=== PATIENT | male | born 1955 | race Caucasian/White ===

== ENCOUNTER 2019-04-02 05:56 | Inpatient (IN) | payer OTHER ==
--- OUTSIDE RECORDS SUMMARY | 2019-04-02 05:59 | XMS REPORT | Clinical Summary ---
:1955 [address] [facility] Address [address] [place] [address] Care Team Providers Name Role Phone Alexis Primary Care Provider Allergies No Known Allergies Medications Medication Sig Dispensed Refills Start Date End Date Status aspirin 81 MG EC Take 81 mg by mouth 0 Active tablet daily. gabapentin Take 300 mg by mouth 0 Active (NEURONTIN) 300 MG 3 (three) times capsule daily. levothyroxine Take 100 mcg by 0 Active (SYNTHROID, mouth Every morning LEVOTHROID) 100 MCG on an empty stomach. tablet simvastatin (ZOCOR) Take 40 mg by mouth 0 Active 40 MG tablet nightly. ticagrelor Take by mouth 2 0 Active (BRILINTA) 90 mg Tab (two) times daily. tablet albuterol HFA Inhale by mouth via 0 Active (VENTOLIN HFA) 90 inhaler every 6 mcg/actuation (six) hours as inhaler needed for Wheezing . budesonide-formotero Inhale 2 puffs by 0 Active l (SYMBICORT) mouth via inhaler 2 160-4.5 (two) times daily. mcg/actuation inhaler brinzolamide (AZOPT) Place 1 drop into 0 Active 1 % ophthalmic both eyes 3 (three) suspension times daily. latanoprost 1 drop nightly. 0 Active (XALATAN) 0.005 % ophthalmic solution prednisoLONE acetate 1 drop 4 (four) 0 Active (PRED FORTE) 1 % times daily. ophthalmic suspension tiotropium (SPIRIVA) Inhale 18 mcg by 0 Active 18 mcg inhalation mouth via inhaler capsule daily. traMADol (ULTRAM) 50 Take 50 mg by mouth 0 Active mg tablet every 6 (six) hours as needed for Pain. amoxicillin-clavulan Take 1 tablet by 0 Active ate (AUGMENTIN) mouth 2 (two) times 875-125 mg per daily. tablet fluticasone 1 spray by Nasal 0 Active (FLONASE) 50 route 2 (two) times mcg/actuation nasal daily. spray montelukast Take 10 mg by mouth 0 Active (SINGULAIR) 10 mg nightly. tablet pantoprazole Take 40 mg by mouth 0 Active (PROTONIX) 40 MG daily. tablet predniSONE Take 5 mg by mouth 0 Active (DELTASONE) 5 MG daily. tablet insulin detemir Inject 20 Units 10 mL 0 01/31/2017 Active (LEVEMIR) 100 subcutaneously unit/mL injection daily. Active Problems Problem Noted Date Carotid stenosis 02/01/2017 History of coronary artery disease 02/01/2017 PVD (peripheral vascular disease) 02/01/2017 COPD (chronic obstructive pulmonary disease) 02/01/2017 DM (diabetes mellitus) 02/01/2017 Hypothyroidism 02/01/2017 History of below knee amputation, right: in 201402/01/2017 History of above knee amputation, left: in 200502/01/2017 Dizziness 01/31/2017 TIA (transient ischemic attack) 01/30/2017 Family History Medical History Relation Name Comments Heart disease Father Relation Name Status Comments Father Mother Social History Tobacco Use Types Packs/Day Years Used Date Former Smoker 1 46 Quit: 09/01/2011 Alcohol Use Drinks/Week oz/Week Comments No Sex Assigned at Date Recorded Not on file Job Start Date Occupation Industry Not on file Not on file Not on file Travel History Travel Start Travel End No recent travel history available. Last Filed Vital Signs Not on file Plan of Treatment Not on file Results Not on fileafter 04/01/2018 Insurance Payer Benefit Plan / Group Subscriber ID Type Phone Address MEDICARE MEDICARE A B xxxxxxxxxx Medicare Advance Directives For more information, please contact:[place] [address] [place], [place] [phone] Code Status Date Activated Date Inactivated Comments Partial Code 01/30/2017 10:30 PM 02/01/2017 6:08 PM This code status was determined by: Patient Drug Protocol After Arrest Occurs? Yes Mechanical Ventilation with Intubation? No Bag/Mask? No Internal/External Pacemaker? No Transfer to Critical Care? No Chest Compressions? No Defibrillation/Cardioversion? No
--- OUTSIDE RECORDS SUMMARY | 2019-04-02 05:59 | XMS REPORT ---
:1955 Author [facility] Address [address] [place] [address] Care Team Providers Name Role Phone LAMONT JACOB Unavailable Unavailable Problems This patient has no known problems. Allergies, Adverse Reactions, Alerts This patient has no known allergies or adverse reactions. Medications This patient has no known medications. Results Test Description Test Time Test Comments Text Results Atomic Results Result Comments POCT-GLUCOSE METER 2017-02-01 11:26:00 Test Item Value Reference Range Comments POC-GLUCOSE METER (BEAKER) (test 268 mg/dL 70-110 TESTED AT [facility] [address] [facility] uxsa=[id number]) [facility] [address] POCT-GLUCOSE [id number] 07:49:00 Test Item Value Reference Range Comments POC-GLUCOSE METER (BEAKER) 219 mg/dL 70-110 TESTED AT [facility] [address] [facility] cihv[facility] [address] BASIC METABOLIC [id number] 07:26:00 Test Item Value Reference Range Comments SODIUM (BEAKER) (test 134 meq/L 136-145 fsou=313) POTASSIUM (BEAKER) (test 3.6 meq/L 3.5-5.1 plgq=019) CHLORIDE (BEAKER) (test 103 meq/L 98-107 vkmx=869) CO2 (BEAKER) (test 23 meq/L 22-29 eboj=963) BLOOD UREA NITROGEN 21 mg/dL 7-21 (BEAKER) (test fgob=861) CREATININE (BEAKER) (test 1.23 mg/dL 0.57-1.25 codq=107) GLUCOSE RANDOM (BEAKER) 212 mg/dL 70-105 (test sstc=526) CALCIUM (BEAKER) (test 9.0 mg/dL 8.4-10.2 zbid=732) EGFR (BEAKER) (test 60 mL/min/1.73 sq m ESTIMATED GFR IS NOT lrny=8561) ACCURATE CREATININE CLEARANCE IN PREDICTING GLOMERULAR FILTRATION RATE. ESTIMATED GFR IS NOT APPLICABLE FOR DIALYSIS PATIENTS. CBC W/PLT COUNT & AUTO [id number] 06:02:00 Test Item Value Reference Range Comments WHITE BLOOD CELL COUNT (BEAKER) (test kwfl=252) 6.5 K/ L 4.0-10.0 RED BLOOD CELL COUNT (BEAKER) (test xvrr=282) 3.90 M/ L 4.20-5.80 HEMOGLOBIN (BEAKER) (test rucp=799) 12.0 GM/DL 13.0-16.8 HEMATOCRIT (BEAKER) (test rgri=851) 36.0 % 40.0-50.0 MEAN CORPUSCULAR VOLUME (BEAKER) (test gakx=552) 92.2 fL 82.0-98.0 MEAN CORPUSCULAR HEMOGLOBIN (BEAKER) (test 30.8 pg 27.0-33.0 mqrr=459) MEAN CORPUSCULAR HEMOGLOBIN CONC (BEAKER) (test 33.4 GM/DL 32.0-36.0 nzwm=842) RED CELL DISTRIBUTION WIDTH (BEAKER) (test 12.2 % 10.3-14.2 whle=663) PLATELET COUNT (BEAKER) (test egid=425) 187 K/CU MM 150-430 MEAN PLATELET VOLUME (BEAKER) (test uiyb=584) 8.0 fL 6.5-10.5 NUCLEATED RED BLOOD CELLS (BEAKER) (test 0 /100 WBC 0-0 ejeq=283) NEUTROPHILS RELATIVE PERCENT (BEAKER) (test 58 % btxl=049) LYMPHOCYTES RELATIVE PERCENT (BEAKER) (test 23 % yekj=747) MONOCYTES RELATIVE PERCENT (BEAKER) (test 11 % uaab=311) EOSINOPHILS RELATIVE PERCENT (BEAKER) (test 7 % feqy=718) BASOPHILS RELATIVE PERCENT (BEAKER) (test 1 % olfp=713) NEUTROPHILS ABSOLUTE COUNT (BEAKER) (test 3.78 K/ L 1.80-8.00 dhyu=650) LYMPHOCYTES ABSOLUTE COUNT (BEAKER) (test 1.52 K/ L 1.48-4.50 rdhy=766) MONOCYTES ABSOLUTE COUNT (BEAKER) (test 0.73 K/ L 0.00-1.30 pwat=001) EOSINOPHILS ABSOLUTE COUNT (BEAKER) (test 0.48 K/ L 0.00-0.50 axdr=000) BASOPHILS ABSOLUTE COUNT (BEAKER) (test 0.04 K/ L 0.00-0.20 gtxh=230) 0.00POCT-GLUCOSE [id number] 23:23:00 Test Item Value Reference Range Comments POC-GLUCOSE METER (BEAKER) 339 mg/dL 70-110 TESTED AT [address] (test lbct=4791) [facility] [address] POCT-GLUCOSE [id number] 19:55:00 Test Item Value Reference Range Comments POC-GLUCOSE METER (BEAKER) 366 mg/dL 70-110 Will Repeat Test/TESTED AT (test wsct=0483) [address] [address] POCT-GLUCOSE [id number] 18:14:00 Test Item Value Reference Range Comments POC-GLUCOSE METER (BEAKER) 410 mg/dL 70-110 TESTED AT [address] (test gjxs=2292) [facility] [address] POCT-GLUCOSE [id number] 16:43:00 Test Item Value Reference Range Comments POC-GLUCOSE METER (BEAKER) 403 mg/dL 70-110 Notified NEGRA FONSECA/TESTED AT [facility] (test rugd=7825) [address] [place] [address] CBC W/PLT COUNT & AUTO [id number] 11:17:00 Test Item Value Reference Range Comments WHITE BLOOD CELL COUNT (BEAKER) (test nigk=056) 8.5 K/ L 4.0-10.0 RED BLOOD CELL COUNT (BEAKER) (test jomx=257) 4.34 M/ L 4.20-5.80 HEMOGLOBIN (BEAKER) (test lmnt=722) 13.1 GM/DL 13.0-16.8 HEMATOCRIT (BEAKER) (test tvdo=063) 40.4 % 40.0-50.0 MEAN CORPUSCULAR VOLUME (BEAKER) (test nknm=279) 93.1 fL 82.0-98.0 MEAN CORPUSCULAR HEMOGLOBIN (BEAKER) (test 30.1 pg 27.0-33.0 fnek=615) MEAN CORPUSCULAR HEMOGLOBIN CONC (BEAKER) (test 32.3 GM/DL 32.0-36.0 euot=402) RED CELL DISTRIBUTION WIDTH (BEAKER) (test 13.4 % 10.3-14.2 wudz=391) PLATELET COUNT (BEAKER) (test hhef=011) 190 K/CU MM 150-430 MEAN PLATELET VOLUME (BEAKER) (test tyih=648) 8.3 fL 6.5-10.5 NUCLEATED RED BLOOD CELLS (BEAKER) (test 0 /100 WBC 0-0 dujb=660) NEUTROPHILS RELATIVE PERCENT (BEAKER) (test 68 % qwfg=334) LYMPHOCYTES RELATIVE PERCENT (BEAKER) (test 18 % zkqh=623) MONOCYTES RELATIVE PERCENT (BEAKER) (test 7 % arku=310) EOSINOPHILS RELATIVE PERCENT (BEAKER) (test 5 % xsef=484) BASOPHILS RELATIVE PERCENT (BEAKER) (test 1 % qvkb=616) NEUTROPHILS ABSOLUTE COUNT (BEAKER) (test 5.84 K/ L 1.80-8.00 yblc=941) LYMPHOCYTES ABSOLUTE COUNT (BEAKER) (test 1.57 K/ L 1.48-4.50 nbzn=758) MONOCYTES ABSOLUTE COUNT (BEAKER) (test 0.62 K/ L 0.00-1.30 pujt=721) EOSINOPHILS ABSOLUTE COUNT (BEAKER) (test 0.44 K/ L 0.00-0.50 dwzg=191) BASOPHILS ABSOLUTE COUNT (BEAKER) (test 0.06 K/ L 0.00-0.20 msic=168) 0.00POCT-GLUCOSE [id number] 08:34:00 Test Item Value Reference Range Comments POC-GLUCOSE METER (BEAKER) 293 mg/dL 70-110 TESTED AT [facility] [address] [facility] (test lngg=4360) [facility] [address] CBC W/PLT COUNT & AUTO [id number] 07:38:00 Test Item Value Reference Range Comments WHITE BLOOD CELL COUNT (BEAKER) K/ L 4.0-10.0 clotThis is a corrected (test jdkt=432) result. Previous result was 0.0 K/ L on 01/31/2017 at 0733 CDT RED BLOOD CELL COUNT (BEAKER) M/ L 4.20-5.80 clotThis is a corrected (test ldqb=474) result. Previous result was 2.30 M/ L on 01/31/2017 at 0733 CDT HEMOGLOBIN (BEAKER) (test GM/DL 13.0-16.8 clotThis is a corrected eakd=986) result. Previous result was 9.8 GM/DL on 01/31/[address] [place], [place] [address] HEMATOCRIT (BEAKER) (test % 40.0-50.0 clotThis is a corrected evfw=810) result. Previous result was 21.4 % on 01/31/[address] [place], [place] [address] MEAN CORPUSCULAR VOLUME fL 82.0-98.0 clotThis is a corrected (BEAKER) (test sysi=153) result. Previous result was 92.8 fL on 01/31/[address] [place], [place] [address] MEAN CORPUSCULAR HEMOGLOBIN pg 27.0-33.0 clotThis is a corrected (BEAKER) (test tcpn=707) result. Previous result was 42.5 pg on 01/31/[address] [place], [place] [address] MEAN CORPUSCULAR HEMOGLOBIN GM/DL 32.0-36.0 clotThis is a corrected CONC (BEAKER) (test mosv=731) result. Previous result was 45.8 GM/DL on 01/31/[address] [place], [place] [address] RED CELL DISTRIBUTION WIDTH % 10.3-14.2 clotThis is a corrected (BEAKER) (test imyo=952) result. Previous result was 12.1 % on 01/31/[address] [place], [place] [address] PLATELET COUNT (BEAKER) (test K/CU MM 150-430 clotThis is a corrected ajme=650) result. Previous result was 168 K/CU MM on 01/31/[address] [place], [place] [address] MEAN PLATELET VOLUME (BEAKER) fL 6.5-10.5 clotThis is a corrected (test lakx=432) result. Previous result was 8.1 fL on 01/31/[address] [place], [place] [address] NUCLEATED RED BLOOD CELLS /100 WBC 0-0 This is a corrected result. (BEAKER) (test dbqr=332) Previous result was 0 /100 WBC on 01/31/[address] [place], [place] [address]T 0.000.850.000.000.000.000.000.00BASIC METABOLIC [id number] 06:27:00 Test Item Value Reference Range Comments SODIUM (BEAKER) (test 135 meq/L 136-145 imfv=051) POTASSIUM (BEAKER) (test 4.6 meq/L 3.5-5.1 Specimen slightly gtue=459) hemolyzed CHLORIDE (BEAKER) (test 106 meq/L 98-107 bkbc=655) CO2 (BEAKER) (test 17 meq/L 22-29 zkam=194) BLOOD UREA NITROGEN 20 mg/dL 7-21 (BEAKER) (test fexx=532) CREATININE (BEAKER) (test 0.94 mg/dL 0.57-1.25 Specimen slightly rvxc=482) hemolyzed GLUCOSE RANDOM (BEAKER) 237 mg/dL 70-105 (test fkou=582) CALCIUM (BEAKER) (test 9.1 mg/dL 8.4-10.2 gnrj=437) EGFR (BEAKER) (test 82 mL/min/1.73 sq m ESTIMATED GFR IS NOT hcge=1053) ACCURATE CREATININE CLEARANCE IN PREDICTING GLOMERULAR FILTRATION RATE. ESTIMATED GFR IS NOT APPLICABLE FOR DIALYSIS PATIENTS. POCT-GLUCOSE [id number] 21:00:00 Test Item Value Reference Range Comments POC-GLUCOSE METER (BEAKER) 203 mg/dL 70-110 TESTED AT [facility] [address] (test czei=6791) [facility] [address]
[2019-04-02] MEDS ORDERED: NA CHLORIDE 0.9% 1,000 ML ONE ×2 (06:52→07:56)
[2019-04-02] MEDS ORDERED: ONDANSETRON 4 MG/2 ML VIAL ONE ×2 (06:52→09:06)
[2019-04-02 07:06] LABS: Absolute Lymphocytes (CBC) 1.4 K/uL (0.7-4.9); Hematocrit 43.4 % (39.6-49.0); Lymphocytes % 15.1 % (15.3-44.8); MPV 9.9 fL (7.6-11.3); RBC Red Blood Cell Count 4.72 M/uL (4.33-5.43)
[2019-04-02] MEDS ORDERED: PROMETHAZINE 25 MG/ML VIAL ONE (07:17)
[2019-04-02 07:29] LABS: ALT/SGPT 24 U/L (12-78); AST/SGOT 28 U/L (15-37); Albumin 3.5 g/dL (3.4-5.0); Alkaline Phosphatase 104 U/L (45-117); BUN Blood Urea Nitrogen 34 mg/dL (7-18); Bicarbonate 15 mmol/L (21-32); Bilirubin Direct 0.5 mg/dL (0-0.2); Bilirubin Total 1.5 mg/dL (0.2-1.0); Lipase 20 U/L (73-393); Potassium 4.8 mmol/L (3.5-5.1); Protein, Total 8.3 g/dL (6.4-8.2); Sodium Level 135 mmol/L (136-145)
[2019-04-02 07:53] LABS: Glucose Level 419 mg/dL (74-106)
[2019-04-02 08:28] LABS: Arterial Blood Carboxyhemoglob 1.1 % (0-1.5); Blood Gas Oxyhemoglobin 73.2 % (94-97); Blood O2 Saturation 74.8 % (92-98.5)
--- NOTE | 2019-04-02 08:35 | ER ---
Nurse's Notes [facility] Name: Edson Spence Age: 63 yrs Sex: Male : 1955 Arrival Date: 04/02/2019 Time: 06:00 Bed 6 Private MD: Diagnosis: Diabetes mellitus due to underlying condition with ketoacidosis without coma Presentation: 04/02 05:55 Presenting complaint: Patient states: that he has been feeling sick x 4 days. Then for fc the last 2 days he has been vomiting. Also complains of pain all over. Concerned that it has something to do with his DM, unable to check blood sugars at home. Transition of care: patient was not received from another setting of care. Onset of symptoms was March 30, 2019. Risk Assessment: Do you want to hurt yourself or someone else? Patient reports no desire to harm self or others. Initial Sepsis Screen: Does the patient meet any 2 criteria? HR > 90 bpm. Yes Does the patient have a suspected source of infection? No. Patient's initial sepsis screen is negative. Care prior to arrival: Glucose check: 343. 05:55 Method Of Arrival: EMS: [facility] 05:55 Acuity: CHRISTOPHER 3 fc Historical: - Allergies: 06:06 NKA; fc - Home Meds: 06:11 aspirin 81 mg Oral TbEC 1 tab once daily [Active]; BRILINTA 90 mg oral tab 1 tab 2 fc times per day [Active]; levothyroxine 100 mcg tab 1 tab once daily [Active]; metoprolol tartrate 25 mg Oral tab 1 tab 2 times per day [Active]; simvastatin 40 mg Oral tab 1 tab nightly [Active]; Insulin [Active]; - PMHx: 06:06 COPD; Diabetes - IDDM; Hypertension; Hypothyroidism; Myocardial infarction; High fc Cholesterol; - PSHx: 06:06 Heart stents; Left AKA; Right BKA; fc - Immunization history:: Last tetanus immunization: up to date. - Social history:: Smoking status: Patient/guardian denies using tobacco, the patient reports quitting approximately 3 years ago, Patient/guardian denies using alcohol, street drugs. - Ebola Screening: : Patient negative for fever greater than or equal to 101.5 degrees Fahrenheit, and additional compatible Ebola Virus Disease symptoms Patient denies exposure to infectious person Patient denies travel to an Ebola-affected area in the 21 days before illness onset. Screenin:04 Abuse screen: Denies threats or abuse. Nutritional screening: No deficits noted. fc Tuberculosis screening: No symptoms or risk factors identified. 06:11 Fall Risk Secondary diagnosis (15 points) impaired mobility, Gait- Impaired (20 pts.). jd3 Mental Status- Oriented to own ability (0 pts). Total Martinez Fall Scale indicates Low Risk Score (25-44 pts). Fall prevention measures have been instituted. Side Rails Up X 2 Placed close to Nursing Station Frequent Obs/Assesments occuring. Assessment: 06:07 General: Appears in no apparent distress. uncomfortable, Behavior is calm, cooperative, jd3 appropriate for age. Pain: Complains of pain in generalized Quality of pain is described as aching. Neuro: Level of Consciousness is awake, alert, obeys commands, Oriented to person, place, time, situation. Cardiovascular: Capillary refill < 3 seconds Patient's skin is warm and dry. Respiratory: Airway is patent Respiratory effort is even, unlabored, Respiratory pattern is regular, symmetrical, Denies cough, shortness of breath. GI: Abdomen is flat, non-distended, Abd is soft and non tender X 4 quads. Reports nausea, vomiting. : No signs and/or symptoms were reported regarding the genitourinary system. EENT: No signs and/or symptoms were reported regarding the EENT system. Derm: Skin is intact, Skin is dry, Skin is pale, Skin temperature is warm. Musculoskeletal: Amputation of above knee on left. below knee on right.. Circulation, motion, and sensation intact. Range of motion: intact in all extremities. 07:10 Reassessment: Patient and/or family updated on plan of care and expected duration. Pain jl7 level reassessed. Patient is alert, oriented x 3, equal unlabored respirations, skin warm/dry/pink. Pain: Complains of pain in all over Quality of pain is described as aching, Pain began 2-3 days ago. Is continuous. Neuro: Level of Consciousness is awake, alert, obeys commands, Oriented to person, place, time, situation. Cardiovascular: Heart tones S1 S2 present Patient's skin is warm and dry. Respiratory: Airway is patent Respiratory effort is even, unlabored, Respiratory pattern is symmetrical, tachypnea. GI: Abdomen is flat, non-distended, Stools are reported to be normal. Last BM was April 01, 2019. Bowel sounds hypoactive in right upper quadrant, left upper quadrant, right lower quadrant and left lower quadrant Abd is soft and non tender X 4 quads. Reports nausea. : No signs and/or symptoms were reported regarding the genitourinary system. Derm: Skin is pink, warm \\T\\ dry. Musculoskeletal: Amputation of Above the knee on left, BKA on right. 07:20 Reassessment: Pt actively vomiting, ERP notified, see MAR for orders. jl7 08:15 Reassessment: Patient appears in no apparent distress at this time. Patient and/or jl7 family updated on plan of care and expected duration. Pain level reassessed. Patient is alert, oriented x 3, equal unlabored respirations, skin warm/dry/pink. ERP at bedside discussing plan of care. 09:15 Reassessment: Patient appears in no apparent distress at this time. No changes from jl7 previously documented assessment. Patient and/or family updated on plan of care and expected duration. Pain level reassessed. Patient is alert, oriented x 3, equal unlabored respirations, skin warm/dry/pink. Pt c/o of aching all over and not being able to rest, requesting pain medication, provided pt with warm blankets and repositioned pt, ERD notified, see MAR for orders. 09:40 Reassessment: pt laying in bed with eyes closed, respirations even and unlabored. jl7 Reassessed sugar, FSBS 352, pt reports "I was about to fall asleep." Turned lights off and shut door to decrease noises. 11:00 Reassessment: Patient appears in no apparent distress at this time. No changes from jl7 previously documented assessment. Patient and/or family updated on plan of care and expected duration. Pain level reassessed. Patient is alert, oriented x 3, equal unlabored respirations, skin warm/dry/pink. Vital Signs: 05:55 BP 135 / 84; Pulse 103; Resp 18; Temp 97.7(O); Pulse Ox 99% on R/A; Weight 45.36 kg fc (R); Pain 8/10; 07:33 BP 143 / 45; Pulse 114; Resp 23 S; Pulse Ox 98% on R/A; jl7 08:00 BP 106 / 40; Pulse 117; Resp 24 S; Pulse Ox 98% on R/A; jl7 08:17 Weight 41.73 kg (M); jl7 08:30 BP 149 / 61; Pulse 115; Resp 22 S; Pulse Ox 97% on R/A; jl7 09:00 BP 142 / 69; Pulse 115; Resp 23 S; Pulse Ox 99% on R/A; jl7 09:47 BP 143 / 71; Pulse 114; Resp 24 S; Pulse Ox 97% on R/A; jl7 10:51 BP 158 / 77; Pulse 111; Resp 22 S; Pulse Ox 97% on R/A; jl7 ED Course: 05:55 Arm band placed on Patient placed in an exam room, on a stretcher. fc 06:00 Patient arrived in ED. fc 06:03 Triage completed. fc 06:04 Patient has correct armband on for positive identification. Bed in low position. Call light in reach. Side rails up X2. case monitor on. Pulse ox on. NIBP on. 06:04 No provider procedures requiring assistance completed. fc 06:07 Shar Salcedo, NEGRA is Primary Nurse. jd3 06:17 Scotty Wolf PA is PHCP. jr8 06:17 Isaias Anders MD is Attending Physician. jr8 06:50 Inserted saline lock: 24 gauge in right hand, using aseptic technique. Blood collected. jd3 07:16 Evie Ireland RN is Primary Nurse. jl7 08:20 Inserted saline lock: 22 gauge in left forearm, using aseptic technique. jl7 08:32 Sandip Atwood MD is Hospitalizing Provider. jr8 08:32 Silvana Atwood MD is Hospitalizing Provider. jr8 11:12 Patient admitted, IV remains in place. intact, No redness/swelling at site. jl7 Administered Medications: 06:56 Drug: Zofran 4 mg Route: IVP; Site: right hand; jd3 07:20 Follow up: Response: No adverse reaction; Nausea unchanged jl7 06:56 Drug: NS 0.9% 1000 ml Route: IV; Rate: 1000 ml; Site: right hand; jd3 08:00 Follow up: IV Status: Completed infusion; IV Intake: 1000ml jl7 07:22 Drug: Phenergan 12.5 mg Route: IVP; Site: right hand; jl7 07:45 Follow up: Response: No adverse reaction; Nausea is decreased jl7 08:03 Drug: NS 0.9% 1000 ml Route: IV; Rate: 1000 ml; Site: left forearm; jl7 09:27 Follow up: IV Status: Completed infusion; IV Intake: 1000ml jl7 08:44 Drug: Insulin Drip - (Insulin Regular Human 100 units, NS 0.9% 100 ml) {Co-Signature: jl7 rb1 (Beulah Max RN).} Route: IV; Rate: calculated rate; Site: right hand; 11:13 Follow up: IV Status: Infusion continued upon admission jl7 09:12 Drug: Zofran 4 mg Route: IVP; Site: left forearm; jl7 10:02 Follow up: Response: No adverse reaction jl7 09:14 Drug: fentaNYL (PF) 25 mcg Route: IVP; Site: left forearm; jl7 09:40 Follow up: Response: No adverse reaction; Pain is decreased jl7 Point of Care Testing: Blood Glucose: 06:02 Blood Glucose: 373 mg/dL; 09:41 Blood Glucose: 352 mg/dL; jl7 10:41 Blood Glucose: 315 mg/dL; jl7 Ranges: Intake: 08:00 IV: 1000ml; Total: 1000ml. 7 09:27 IV: 1000ml; Total: 2000ml. jl7 Outcome: 08:33 Decision to Hospitalize by Provider. jr8 11:12 Admitted to ICU accompanied by nurse, accompanied by tech, via stretcher, room 2, on 7 monitor, with chart, Report called to NEGRA Frost 11:12 Condition: stable 11:12 Discharge instructions given to patient, Instructed on the need for admit, Demonstrated understanding of instructions. 11:42 Patient left the ED. jl7 Signatures: Vicky Hunt RN RN fc Roszak, Josh, PA PA jr8 Evie Ireland RN RN jl7 Davies, Jonathon, RN RN jd3 Beulah Max RN rb1 Corrections: (The following items were deleted from the chart) 06:59 06:07 Musculoskeletal: Amputation of no signs of infection. skin intact. Circulation, jd3 motion, and sensation intact. Range of motion: intact in all extremities, jd3
--- NOTE | 2019-04-02 08:35 | EDPHYS ---
Physician Documentation [facility] Name: Edson Spence Age: 63 yrs Sex: Male : 1955 Arrival Date: 04/02/2019 Time: 06:00 Bed 6 Private MD: ED Physician Isaias Anders HPI: 04/02 06:54 This 63 yrs old Male presents to ER via EMS with complaints of n/v with jr8 abdominal pain. 06:54 The patient presents with abdominal pain in the upper abdomen. Onset: The jr8 symptoms/episode began/occurred acutely, last night. The symptoms do not radiate. Associated signs and symptoms: Pertinent positives: nausea and vomiting. The symptoms are described as crampy. Modifying factors: The symptoms are alleviated by nothing, the symptoms are aggravated by nothing. Severity of pain: At its worst the pain was moderate in the emergency department the pain is unchanged. It is unknown whether or not the patient has had similar symptoms in the past. The patient has not recently seen a physician. Patient stated that he worries that his blood sugar is high. Type 1 diabetic with multiple complications stemming from long standing diabetic history . Historical: - Allergies: 06:06 NKA; fc - Home Meds: 06:11 aspirin 81 mg Oral TbEC 1 tab once daily [Active]; BRILINTA 90 mg oral tab 1 tab 2 fc times per day [Active]; levothyroxine 100 mcg tab 1 tab once daily [Active]; metoprolol tartrate 25 mg Oral tab 1 tab 2 times per day [Active]; simvastatin 40 mg Oral tab 1 tab nightly [Active]; Insulin [Active]; - PMHx: 06:06 COPD; Diabetes - IDDM; Hypertension; Hypothyroidism; Myocardial infarction; High fc Cholesterol; - PSHx: 06:06 Heart stents; Left AKA; Right BKA; fc - Immunization history:: Last tetanus immunization: up to date. - Social history:: Smoking status: Patient/guardian denies using tobacco, the patient reports quitting approximately 3 years ago, Patient/guardian denies using alcohol, street drugs. - Ebola Screening: : Patient negative for fever greater than or equal to 101.5 degrees Fahrenheit, and additional compatible Ebola Virus Disease symptoms Patient denies exposure to infectious person Patient denies travel to an Ebola-affected area in the 21 days before illness onset. ROS: 06:54 Eyes: Negative for injury, pain, redness, and discharge, ENT: Negative for injury, jr8 pain, and discharge, Neck: Negative for injury, pain, and swelling, Cardiovascular: Negative for chest pain, palpitations, and edema, Respiratory: Negative for shortness of breath, cough, wheezing, and pleuritic chest pain, Back: Negative for injury and pain, MS/Extremity: Negative for injury and deformity, Skin: Negative for injury, rash, and discoloration, Neuro: Negative for headache, weakness, numbness, tingling, and seizure. 06:54 Abdomen/GI: Positive for nausea and vomiting, abdominal cramps. Exam: 06:54 Eyes: Pupils equal round and reactive to light, extra-ocular motions intact. Lids and jr8 lashes normal. Conjunctiva and sclera are non-icteric and not injected. Cornea within normal limits. Periorbital areas with no swelling, redness, or edema. ENT: Nares patent. No nasal discharge, no septal abnormalities noted. Tympanic membranes are normal and external auditory canals are clear. Oropharynx with no redness, swelling, or masses, exudates, or evidence of obstruction, uvula midline. Mucous membranes moist. Neck: Trachea midline, no thyromegaly or masses palpated, and no cervical lymphadenopathy. Supple, full range of motion without nuchal rigidity, or vertebral point tenderness. No Meningismus. Cardiovascular: Regular rate and rhythm with a normal S1 and S2. No gallops, murmurs, or rubs. Normal PMI, no JVD. No pulse deficits. Respiratory: Lungs have equal breath sounds bilaterally, clear to auscultation and percussion. No rales, rhonchi or wheezes noted. No increased work of breathing, no retractions or nasal flaring. Abdomen/GI: Soft, non-tender, with normal bowel sounds. No distension or tympany. No guarding or rebound. No evidence of tenderness throughout. Back: No spinal tenderness. No costovertebral tenderness. Full range of motion. Skin: Warm, dry with normal turgor. Normal color with no rashes, no lesions, and no evidence of cellulitis. MS/ Extremity: Pulses equal, no cyanosis. Neurovascular intact. Full, normal range of motion. Neuro: Awake and alert, GCS 15, oriented to person, place, time, and situation. Cranial nerves II-XII grossly intact. Motor strength 5/5 in all extremities. Sensory grossly intact. Cerebellar exam normal. Normal gait. Vital Signs: 05:55 BP 135 / 84; Pulse 103; Resp 18; Temp 97.7(O); Pulse Ox 99% on R/A; Weight 45.36 kg fc (R); Pain 8/10; 07:33 BP 143 / 45; Pulse 114; Resp 23 S; Pulse Ox 98% on R/A; jl7 08:00 BP 106 / 40; Pulse 117; Resp 24 S; Pulse Ox 98% on R/A; jl7 08:17 Weight 41.73 kg (M); jl7 08:30 BP 149 / 61; Pulse 115; Resp 22 S; Pulse Ox 97% on R/A; jl7 09:00 BP 142 / 69; Pulse 115; Resp 23 S; Pulse Ox 99% on R/A; jl7 09:47 BP 143 / 71; Pulse 114; Resp 24 S; Pulse Ox 97% on R/A; jl7 10:51 BP 158 / 77; Pulse 111; Resp 22 S; Pulse Ox 97% on R/A; jl7 MDM: 06:17 Patient medically screened. jr8 08:32 Data reviewed: vital signs, nurses notes, lab test result(s). Data interpreted: Pulse jr8 oximetry: on room air is 98 %. Interpretation: normal. Arterial blood gas: pH: 7.22, Interpretation: metabolic acidosis. Counseling: I had a detailed discussion with the patient and/or guardian regarding: the historical points, exam findings, and any diagnostic results supporting the discharge/admit diagnosis, lab results, the need for further work-up and treatment in the hospital. Physician consultation: Silvana Atwood MD was called at 08:32, was contacted at 08:32, regarding admission, to the ICU, consult, patient's condition, and will see patient. 04/02 06:04 Order name: Glucose, Ancillary Testing; Complete Time: 06:26 EDMS 04/02 06:28 Order name: Creatinine for Radiology; Complete Time: 07:59 jr8 04/02 06:28 Order name: Basic Metabolic Panel; Complete Time: 07:59 jr8 04/02 06:28 Order name: CBC with Diff; Complete Time: 07:59 jr8 04/02 06:28 Order name: Hepatic Function; Complete Time: 07:59 04/02 06:28 Order name: Lipase; Complete Time: 07:59 04/02 06:28 Order name: Ketone, Serum; Complete Time: 07:59 04/02 08:30 Order name: ABG Arterial Blood Gas EDMS 04/02 06:28 Order name: IV Saline Lock; Complete Time: 06:50 04/02 06:28 Order name: Labs collected and sent; Complete Time: 06:50 Administered Medications: 06:56 Drug: Zofran 4 mg Route: IVP; Site: right hand; jd3 07:20 Follow up: Response: No adverse reaction; Nausea unchanged 06:56 Drug: NS 0.9% 1000 ml Route: IV; Rate: 1000 ml; Site: right hand; jd3 08:00 Follow up: IV Status: Completed infusion; IV Intake: 1000ml 7 07:22 Drug: Phenergan 12.5 mg Route: IVP; Site: right hand; jl7 07:45 Follow up: Response: No adverse reaction; Nausea is decreased 08:03 Drug: NS 0.9% 1000 ml Route: IV; Rate: 1000 ml; Site: left forearm; jl7 09:27 Follow up: IV Status: Completed infusion; IV Intake: 1000ml jl7 08:44 Drug: Insulin Drip - (Insulin Regular Human 100 units, NS 0.9% 100 ml) {Co-Signature: jl7 rb1 (Beulah Max RN).} Route: IV; Rate: calculated rate; Site: right hand; 11:13 Follow up: IV Status: Infusion continued upon admission 09:12 Drug: Zofran 4 mg Route: IVP; Site: left forearm; jl7 10:02 Follow up: Response: No adverse reaction jl7 09:14 Drug: fentaNYL (PF) 25 mcg Route: IVP; Site: left forearm; jl7 09:40 Follow up: Response: No adverse reaction; Pain is decreased jl7 Point of Care Testing: Blood Glucose: 06:02 Blood Glucose: 373 mg/dL; fc 09:41 Blood Glucose: 352 mg/dL; jl7 10:41 Blood Glucose: 315 mg/dL; jl7 Ranges: Critical Glucose Levels:Adult <50 mg/dl or >400 mg/dl <40 mg/dl or >180 mg/dl Disposition: 04/02/19 08:33 Hospitalization ordered by Silvana Atwood for Inpatient Admission. Preliminary diagnosis is Diabetes mellitus due to underlying condition with ketoacidosis without coma. - Bed requested for Intensive Care Unit. - Status is Inpatient Admission. jl7 - Condition is Stable. - Problem is new. - Symptoms have improved. UTI on Admission? No Signatures: Dispatcher [employer] EDMS Willy Jones MD MD cha Chretien, Felicia, RN RN Scotty Wolf PA PA jr8 Evie Ireland RN RN jl7 Shar Salcedo RN RN jAnay Harris RN rb1 Corrections: (The following items were deleted from the chart) 08:47 08:33 Hospitalization Ordered by Silvana Atwood MD for Inpatient Admission. Preliminary eb diagnosis is Diabetes mellitus due to underlying condition with ketoacidosis without coma. Bed requested for Intensive Care Unit. Status is Inpatient Admission. Condition is Stable. Problem is new. Symptoms have improved. UTI on Admission? No. jr8 10:02 08:47 04/02/2019 08:33 Hospitalization Ordered by Silvana Atwood MD for Inpatient eb Admission. Preliminary diagnosis is Diabetes mellitus due to underlying condition with ketoacidosis without coma. Bed requested for Intensive Care Unit. Status is Inpatient Admission. Condition is Stable. Problem is new. Symptoms have improved. UTI on Admission? No. eb 11:42 10:02 04/02/2019 08:33 Hospitalization Ordered by Silvana Atwood MD for Inpatient jl7 Admission. Preliminary diagnosis is Diabetes mellitus due to underlying condition with ketoacidosis without coma. Bed requested for Intensive Care Unit. Status is Inpatient Admission. Condition is Stable. Problem is new. Symptoms have improved. UTI on Admission? No. eb
[2019-04-02] MEDS ORDERED: INSULIN -REGULAR HUMAN 100 UNIT in NA CHLORIDE 0.9% 100 ML IV SCH (09:00)
[2019-04-02] MEDS ORDERED: FENTANYL CITR 100 MCG/2 ML ONE (09:05)
[2019-04-02] MEDS: NA CHLORIDE 0.9% 1,000 ML IV SCH ×3 (11:21→22:24)
[2019-04-02] MEDS: D5.45NS W/KCL 20MEQ 1,000 ML IV SCH ×3 (11:21→21:01)
[2019-04-02] MEDS ORDERED: ONDANSETRON 4 MG/2 ML VIAL IV PRN (11:21)
--- NOTE | 2019-04-02 12:07 | RAD REPORT ---
EXAM DESCRIPTION: Russel Single View04/02/2019 12:00 pm CLINICAL HISTORY: Cough COMPARISON: 2017 FINDINGS: The left lateral costophrenic sulcus is not included in the field of view and is not eval uated Lungs are markedly hyperaerated The lungs appear clear of acute infiltrate. The heart is normal size IMPRESSION: No acute abnormalities displayed
[2019-04-02 12:30] VITALS: BMI 15.7
[2019-04-02] MEDS: NACHLORIDE 0.45% 1,000 ML IV SCH ×3 (12:44→21:00)
[2019-04-02 13:02] LABS: BUN Blood Urea Nitrogen 28 mg/dL (7-18); Bicarbonate 18 mmol/L (21-32); Glucose Level 199 mg/dL (74-106); Potassium 3.8 mmol/L (3.5-5.1); Sodium Level 142 mmol/L (136-145)
--- NOTE | 2019-04-02 15:12 | P.HP ---
Certification for Inpatient Patient admitted to: Inpatient With expected LOS: >2 Midnights Practitioner: I am a practitioner with admitting privileges, knowledge of patient current condition, hospital course, and medical plan of care. Services: Services provided to patient in accordance with Admission requirements found in Title 42 Section 412.3 of the Code of Federal Regulations Patient History Date of Service: 04/02/19 Reason for admission: DKA History of Present Illness: This is a 63 yrs old male with a PMH of IDDM, hypothyroid, COPD, CAD, VA w/ 4 stent placement admitted for DKA. Patient states that for the past 4 days, he has not been generally feeling well and has been having abdominal pain. He describes it as crampy abdominal pain, in the upper abdomen area. He denies any radiation of the pain. Associated with nausea/vomiting. No alleviating or exacerbating factors. He thought his blood sugars may have been high as he has not been taking his lantus since he started feeling bad 4 days ago. He did take his novolog yesterday and today. He was brought to the ER In the ER, BP was 135/84,HR 103, RR 18, afebrile at 97.7, 99%on RA. His BMI is 15.8. His labs were remarkable for a anion GAP of 23, large acetone, pH of 7.23. Sodium low at 135, Cr elevated to 1.40. He was given 2 L IVF bolus, insulin drip, zofran, phenergan and fentanyl. His CXR was without any acute abnormalities. At the time of my exam, he was AAOx3, in no acute distress and hemodynamically stable. He reported improvement in his abdominal pain. Allergies No Known Drug Allergies Allergy (Verified 12/29/14 09:09) Unknown No Known Allergies Allergy (Uncoded 05/02/16 00:28) Unknown Home medications list reviewed: Yes Home Medications: RX: Aspirin 81 mg PO DAILY 06/01/16 RX: Gabapentin [Gralise] 300 mg PO TID 06/01/16 RX: Insulin Aspart [Novolog*] See Protocol SQ AC 06/01/16 RX: Levothyroxine [Synthroid*] 100 mcg PO [id number] 06/01/16 RX: Simvastatin [Zocor*] 40 mg PO BEDTIME 06/01/16 RX: Ticagrelor [Brilinta*] 90 mg PO BID* 06/01/16 RX: Albuterol Inhaler [Ventolin Inhaler*] 2 puff IH Q6H PRN 06/06/16 RX: Brinzolamide/Brimonidine Tart [Simbrinza 1%-0.2% Eye Drops] 1 drop OP BID RX: Budesonide/Formoterol Fumarate [Symbicort 160-4.5 Mcg Inhaler] 2 puff IH BID 06/06/16 RX: Latanoprost Ophth [Xalatan 0.005%*] 1 drop EACH EYE BEDTIME 06/06/16 RX: Prednisolone Acetate 1 drop OP QID 06/06/16 RX: Tiotropium [place] [Spiriva] 18 mcg IH DAILY 06/06/16 RX: Tramadol HCl [Ultram] 50 mg PO TID 06/06/16 RX: Fluticasone [Flonase 50MCG Nasal [place]*] 1 sprays ADRIAN BID #1 btl 06/08/16 RX: Glucerna Shake [Glucerna*] 237 ml PO BID #60 can 06/08/16 RX: Montelukast [Singulair*] 10 mg PO BEDTIME #30 tab 06/08/16 RX: Pantoprazole [Protonix Tab*] 40 mg PO DAILY #30 tab 06/08/16 RX: predniSONE [Prednisone*] 5 mg PO DAILY #30 tab 06/08/16 RX: Insulin Glargine,Hum.rec.anlog [Lantus] 10 unit SQ DAILY WITH BREAKFAST - Past Medical/Surgical History Has patient received pneumonia vaccine in the past: No Diabetic: Yes -: Hyperlipidemia -: IDDM -: Hypothyroidism -: COPD -: Left wrist fx 01/2014 -: Arthritis -: PAD -: DM -: VA with 4 stents 2014 -: Cataract sx -: Hemmorhoidectomy -: L AKA 2004 -: Rt BKA - Social History Smoking Status: Former smoker Alcohol use: No CD- Drugs: No Caffeine use: Yes Place of Residence: Home Review of Systems 10-point ROS is otherwise unremarkable Physical Examination - Vital Signs Temperature: 98.1 F Blood Pressure: 165/77 Pulse: 106 Respirations: 15 Pulse Ox (%): 93 - Physical Exam General: Alert, In no apparent distress, Oriented x3 HEENT: Atraumatic, PERRLA, Mucous membr. moist/pink, EOMI, Sclerae nonicteric Neck: Supple, 2+ carotid pulse no bruit, No LAD, Without JVD or thyroid abnormality Respiratory: Clear to auscultation bilaterally, Normal air movement Cardiovascular: Regular rate/rhythm, Normal S1 S2 Gastrointestinal: Normal bowel sounds, No tenderness Musculoskeletal: No tenderness, Other (left AKA, Right BKA) Integumentary: Pressure ulcer (blanchable, stage 1, sacral ) Neurological: Normal gait, Normal speech, Normal strength at 5/5 x4 extr, Normal tone, Normal affect Lymphatics: No axilla or inguinal lymphadenopathy - Studies Laboratory Data (last 24 hrs) 04/02/19 06:47: WBC 9.0, Hgb 14.0, Hct 43.4, Plt Count 212 04/02/19 06:47: Sodium 135 L, Potassium 4.8, BUN 34 H, Creatinine 1.40 H, Glucose 419 H*, Total Bilirubin 1.5 H, AST 28, ALT 24, Alkaline Phosphatase 104 , Lipase 20 L 04/02/19 06:47: Creatinine 1.41 H Assessment and Plan - Problems (Diagnosis) (1) DKA (diabetic ketoacidoses) Onset Date: 06/04/16 Current Visit: No Status: Resolved Plan: Likely secondary to non taking insulin - DKA protocol , IVFs, insulin drip - Monitor via labs, acetone levels and blood sugars - Monitor Vital signs Qualifiers: Diabetes mellitus type: type 1 Diabetes mellitus complication detail: without coma Qualified Code(s): E10.10 - Type 1 diabetes mellitus with ketoacidosis without coma (2) COPD (chronic obstructive pulmonary disease) Onset Date: 01/30/17 Current Visit: No Status: Chronic Qualifiers: COPD type: chronic bronchitis Chronic bronchitis type: unspecified Qualified Code(s): J42 - Unspecified chronic bronchitis (3) CAD (coronary artery disease) Current Visit: No Status: Chronic Qualifiers: Coronary Disease-Associated Artery/Lesion type: unspecified vessel or lesion type [place] vs. transplanted heart: unspecified whether [place] or transplanted heart Associated angina: angina presence unspecified Qualified Code(s): I25.10 - Atherosclerotic heart disease of [place] coronary artery without angina pectoris (4) Diabetes mellitus Onset Date: 01/30/17 Current Visit: No Status: Chronic Plan: Continue monitor blood sugars and adjust insulin as needed. Qualifiers: Diabetes mellitus type: type 1 Diabetes mellitus complication status: with circulatory complication Diabetes mellitus complication detail: with other circulatory complications Qualified Code(s): E10.59 - Type 1 diabetes mellitus with other circulatory complications (5) History of above knee amputation Current Visit: No Status: Chronic Qualifiers: Laterality: left Qualified Code(s): Z89.612 - Acquired absence of left leg above knee (6) History of amputation below knee Current Visit: No Status: Chronic Qualifiers: Laterality: right Qualified Code(s): Z89.511 - Acquired absence of right leg below knee (7) Hyperlipidemia Current Visit: No Status: Chronic Qualifiers: Hyperlipidemia type: unspecified Qualified Code(s): E78.5 - Hyperlipidemia , unspecified (8) Hypothyroidism Current Visit: No Status: Chronic Qualifiers: Hypothyroidism type: unspecified Qualified Code(s): E03.9 - Hypothyroidism , unspecified (9) Pressure ulcer Current Visit: No Status: Chronic Plan: Off-load Qualifiers: Pressure injury location: sacral region Pressure injury stage: stage 1 Qualified Code(s): L89.151 - Pressure ulcer of sacral region, stage 1 - Plan DVT Prophylaxis: Lovenox GI prophylaxis: none Diet: NPO Plan: Admit to ICU, follow DKA protocol. Pending symptomatic improvement. - Advance Directives Does patient have a Living Will: Yes Does patient have a Durable POA for Healthcare: Yes Critical Care: Yes Time Spent Managing Pts Care (In Minutes): 55
[2019-04-02 16:02] LABS: BUN Blood Urea Nitrogen 23 mg/dL (7-18); Bicarbonate 20 mmol/L (21-32); Glucose Level 111 mg/dL (74-106); Potassium 3.9 mmol/L (3.5-5.1); Sodium Level 142 mmol/L (136-145)
[2019-04-02 20:09] LABS: BUN Blood Urea Nitrogen 19 mg/dL (7-18); Bicarbonate 21 mmol/L (21-32); Glucose Level 149 mg/dL (74-106); Potassium 4.1 mmol/L (3.5-5.1); Sodium Level 141 mmol/L (136-145)
[2019-04-02] MEDS ORDERED: D50W 25 GM/50 ML SYRINGE IV PRN (21:52)
[2019-04-02] MEDS ORDERED: GLUCAGON 1 MG/VIAL IM PRN (21:52)
[2019-04-02] MEDS ORDERED: ACETAMINOPHEN 500 MG TAB PO PRN (22:07)
[2019-04-02] MEDS: GABAPENTIN 300 MG CAP PO PRN (22:59)
[2019-04-02] MEDS: MORPHINE 4 MG/ML SYR IV PRN (23:45)
[2019-04-03 05:59] LABS: Magnesium 1.8 mg/dL (1.8-2.4); Phosphorus 2.8 mg/dL (2.5-4.9)
[2019-04-03 06:15] LABS: Absolute Lymphocytes (CBC) 1.7 K/uL (0.7-4.9); Basophils % 1.2 % (0-1.3); Lymphocytes % 26.7 % (15.3-44.8); RBC Red Blood Cell Count 3.91 M/uL (4.33-5.43)
[2019-04-03] MEDS ORDERED: MAGNESIUM SULFATE 1 gm IVPB 1 GM/100 ML BAG IV ONE (07:00)
[2019-04-03] MEDS ORDERED: GLUCAGON 1 MG/VIAL IM PRN ×2 (07:01→09:29)
[2019-04-03] MEDS ORDERED: D50W 25 GM/50 ML SYRINGE IV PRN ×2 (07:01→09:29)
[2019-04-03] MEDS: INSULIN -REGULAR HUMAN 50 UNIT/0.5 ML ML SQ SCH ×4 (07:30→20:27)
[2019-04-03] MEDS: ENOXAPARIN 40 MG/0.4 ML SQ SCH (08:25)
[2019-04-03] MEDS: NA CHLORIDE 0.9% 1,000 ML IV SCH ×2 (11:20→23:51)
[2019-04-03 12:36] VITALS: O2SAT 96
[2019-04-03] MEDS ORDERED: CYCLOPENTOLATE 1% OPTH 2 ML EACH EYE PRN (13:12)
[2019-04-03] MEDS ORDERED: CYCLOPENTOLATE 1% OPTH PRN (13:48)
--- NOTE | 2019-04-03 14:15 | P.PN ---
Subjective Date of Service: 04/03/19 Chief Complaint: DKA Subjective: Improving Patient seen and examined at bedside. Chart reviewed and case discussed with nursing staff. No family at bedside. Patient reports improved symptoms. Gap closed x 2, hemodynamically stable. He has been off of the insulin drip since 10:30 pm last night. Blood sugars improved. No complaints this am. Review of Systems 10-point ROS is otherwise unremarkable Physical Examination - Vital Signs Temperature: 97.1 F Blood Pressure: 106/63 Pulse: 74 Respirations: 20 Pulse Ox (%): 94 - Physical Exam General: Alert, In no apparent distress, Oriented x3 HEENT: Atraumatic, PERRLA, EOMI Neck: Supple, JVD not distended Respiratory: Clear to auscultation bilaterally, Normal air movement Cardiovascular: Regular rate/rhythm, Normal S1 S2 Gastrointestinal: Normal bowel sounds, No tenderness Musculoskeletal: Other (Left AKA, Right BKA; ) Integumentary: No rashes Neurological: Normal speech, Normal tone, Normal affect Lymphatics: No axilla or inguinal lymphadenopathy Assessment And Plan - Current Problems (Diagnosis) (1) DKA (diabetic ketoacidoses) Onset Date: 06/04/16 Current Visit: No Status: Resolved Plan: Likely secondary to non taking insulin; Resolved. - off of insulin drip, on sub cutaneous long acting insulin now. Tolerating a diet. Clinically, feeling better. -Transfer out of the ICU Qualifiers: Diabetes mellitus type: type 1 Diabetes mellitus complication detail: without coma Qualified Code(s): E10.10 - Type 1 diabetes mellitus with ketoacidosis without coma (2) COPD (chronic obstructive pulmonary disease) Onset Date: 01/30/17 Current Visit: No Status: Chronic Qualifiers: COPD type: chronic bronchitis Chronic bronchitis type: unspecified Qualified Code(s): J42 - Unspecified chronic bronchitis (3) CAD (coronary artery disease) Current Visit: No Status: Chronic Qualifiers: Coronary Disease-Associated Artery/Lesion type: unspecified vessel or lesion type [place] vs. transplanted heart: unspecified whether [place] or transplanted heart Associated angina: angina presence unspecified Qualified Code(s): I25.10 - Atherosclerotic heart disease of [place] coronary artery without angina pectoris (4) Diabetes mellitus Onset Date: 01/30/17 Current Visit: No Status: Chronic Plan: Continue monitor blood sugars and adjust insulin as needed. Qualifiers: Diabetes mellitus type: type 1 Diabetes mellitus complication status: with circulatory complication Diabetes mellitus complication detail: with other circulatory complications Qualified Code(s): E10.59 - Type 1 diabetes mellitus with other circulatory complications (5) History of above knee amputation Current Visit: No Status: Chronic Qualifiers: Laterality: left Qualified Code(s): Z89.612 - Acquired absence of left leg above knee (6) History of amputation below knee Current Visit: No Status: Chronic Qualifiers: Laterality: right Qualified Code(s): Z89.511 - Acquired absence of right leg below knee (7) Hyperlipidemia Current Visit: No Status: Chronic Qualifiers: Hyperlipidemia type: unspecified Qualified Code(s): E78.5 - Hyperlipidemia , unspecified (8) Hypothyroidism Current Visit: No Status: Chronic Qualifiers: Hypothyroidism type: unspecified Qualified Code(s): E03.9 - Hypothyroidism , unspecified (9) Pressure ulcer Current Visit: No Status: Chronic Plan: Off-load Qualifiers: Pressure injury location: sacral region Pressure injury stage: stage 1 Qualified Code(s): L89.151 - Pressure ulcer of sacral region, stage 1 - Plan DVT Prophylaxis: Lovenox GI prophylaxis: none Diet: Diabetic diet Plan: Transfer to the floor. Monitor blood sugars and adjust accordingly. Pending symptomatic improvement. Possible discharge in the next 24-48 hrs of clinically stable.
[2019-04-03] MEDS: GUAIFENESIN 600 MG SA TAB PO SCH (20:25)
[2019-04-03] MEDS: METOPROLOL TAR 25 MG TAB PO SCH (20:26)
[2019-04-03] MEDS: TICAGRELOR 90 MG TABLET PO SCH (20:26)
[2019-04-03] MEDS: BRIMONIDINE TART OP SCH (20:27)
[2019-04-03] MEDS: HOME MED 1 EA UNK (Budesonide/Formoterol Fumarate [Symbicort 160-4.5 Mcg Inhaler] 2 PUFF) IH SCH (20:27)
[2019-04-03] MEDS: BRINZOLAMIDE OP SCH (20:27)
[2019-04-03] MEDS ORDERED: FLUTICASONE 50MCG NASAL SPRAY NAS SCH ×2 (21:00)
[2019-04-03] MEDS ORDERED: ATORVASTATIN 20 MG TAB PO SCH (21:00)
[2019-04-03] MEDS ORDERED: INSULIN GLARGINE 100 UNITS/ML SQ ONE (21:52)
[2019-04-04] MEDS ORDERED: METOPROLOL TARTRATE 5 MG/5 ML INJ IV STA (00:48)
[2019-04-04] MEDS: GABAPENTIN 300 MG CAP PO PRN (03:27)
[2019-04-04] MEDS: MORPHINE 4 MG/ML SYR IV PRN ×2 (04:05→07:55)
[2019-04-04] MEDS ORDERED: LEVOTHYROXINE SOD 0.088 MG TAB PO SCH (06:00)
[2019-04-04 06:06] LABS: Absolute Lymphocytes (CBC) 1.2 K/uL (0.7-4.9); Basophils % 1.2 % (0-1.3); Hematocrit 36.6 % (39.6-49.0); Lymphocytes % 20.3 % (15.3-44.8); MPV 9.3 fL (7.6-11.3); RBC Red Blood Cell Count 4.09 M/uL (4.33-5.43)
[2019-04-04 06:16] LABS: Magnesium 1.8 mg/dL (1.8-2.4); Phosphorus 2.3 mg/dL (2.5-4.9)
[2019-04-04 06:26] LABS: BUN Blood Urea Nitrogen 7 mg/dL (7-18); Bicarbonate 25 mmol/L (21-32); Glucose Level 58 mg/dL (74-106); Potassium 3.3 mmol/L (3.5-5.1); Sodium Level 144 mmol/L (136-145)
[2019-04-04] MEDS ORDERED: POTASSIUM CL SA 10 MEQ TAB PO ONE ×2 (06:43→09:00)
[2019-04-04] MEDS: POTASS/SODIUM PHOSPHATE 1 PKT POWD.PACK PO SCH ×3 (06:54→09:00)
[2019-04-04] MEDS: INSULIN -REGULAR HUMAN 50 UNIT/0.5 ML ML SQ SCH ×2 (07:28→11:24)
[2019-04-04] MEDS: GUAIFENESIN 600 MG SA TAB PO SCH (07:56)
[2019-04-04] MEDS: METOPROLOL TAR 25 MG TAB PO SCH (07:56)
[2019-04-04] MEDS: TICAGRELOR 90 MG TABLET PO SCH (07:57)
[2019-04-04] MEDS: ENOXAPARIN 40 MG/0.4 ML SQ SCH (07:57)
[2019-04-04] MEDS ORDERED: INSULIN GLARGINE 100 UNITS/ML SQ SCH (08:00)
[2019-04-04] MEDS ORDERED: MAGNESIUM SULFATE 1 gm IVPB 1 GM/100 ML BAG IV ONE (09:00)
[2019-04-04] MEDS ORDERED: TIOTROPIUM 5 SPRAYS/INHALER IH SCH (09:00)
[2019-04-04] MEDS: BRIMONIDINE TART OP SCH (09:00)
[2019-04-04] MEDS ORDERED: TIOTROPIUM BROMIDE IH SCH (09:00)
[2019-04-04] MEDS: HOME MED 1 EA UNK (Budesonide/Formoterol Fumarate [Symbicort 160-4.5 Mcg Inhaler] 2 PUFF) IH SCH (09:00)
[2019-04-04] MEDS ORDERED: ASPIRIN 81 MG CHEWABLE TABLET PO SCH (09:00)
[2019-04-04] MEDS ORDERED: FLUTICASONE 50MCG NASAL SPRAY NAS SCH (09:00)
[2019-04-04] MEDS ORDERED: predniSONE 5 MG TAB PO SCH (09:00)
[2019-04-04] MEDS: BRINZOLAMIDE OP SCH (09:00)
--- NOTE | 2019-04-04 10:34 | P.DS ---
Admission Date: 04/02/19 Discharge Date: 04/04/19 Disposition: ROUTINE DISCHARGE Discharge Condition: GOOD Reason for Admission: DKA Brief History of Present Illness: Patient admitted with DKA Hospital Course: He did well during the course of the stay no complication of the time of discharge he was alert oriented responsive cooperative vital signs blood pressure was little elevated no complaints PUD ENT normal neck no obvious masses chest clear abdomen soft history of COPD oxygenation stable patient discharge to resume all his home medications including his insulin dose Vital Signs/Physical Exam: Temp Pulse Resp BP Pulse Ox 97.5 F 78 18 197/100 H 98 04/04/19 07:44 04/04/19 07:44 04/04/19 08:25 04/04/19 07:44 04/04/19 08:25 Laboratory Data at Discharge: WBC 5.9 K/uL (4.3-10.9) 04/04/19 05:25 Hgb 12.2 g/dL (13.6-17.9) L 04/04/19 05:25 Hct 36.6 % (39.6-49.0) L 04/04/19 05:25 Plt Count 163 K/uL (152-406) 04/04/19 05:25 Sodium 144 mmol/L (136-145) 04/04/19 05:25 Potassium 3.3 mmol/L (3.5-5.1) L 04/04/19 05:25 BUN 7 mg/dL (7-18) 04/04/19 05:25 Creatinine 0.70 mg/dL (0.55-1.3) 04/04/19 05:25 Glucose 58 mg/dL (74-106) L 04/04/19 05:25 Phosphorus 2.3 mg/dL (2.5-4.9) L 04/04/19 05:25 Magnesium 1.8 mg/dL (1.8-2.4) 04/04/19 05:25 Total Bilirubin 1.5 mg/dL (0.2-1.0) H 04/02/19 06:47 AST 28 U/L (15-37) 04/02/19 06:47 ALT 24 U/L (12-78) 04/02/19 06:47 Alkaline Phosphatase 104 U/L (45-117) 04/02/19 06:47 Triglycerides 48 mg/dL (<150) 04/03/19 05:26 Cholesterol 96 mg/dL (<200) 04/03/19 05:26 HDL Cholesterol 49 mg/dL (40-60) 04/03/19 05:26 Cholesterol/HDL Ratio 1.96 04/03/19 05:26 Lipase 20 U/L (73-393) L 04/02/19 06:47 Home Medications: Aspirin 81 mg PO DAILY 06/01/16 Insulin Aspart [Novolog*] See Protocol SQ AC 06/01/16 Simvastatin [Zocor*] 40 mg PO BEDTIME 06/01/16 Ticagrelor [Brilinta*] 90 mg PO BID* 06/01/16 Albuterol Inhaler [Ventolin Inhaler*] 2 puff IH Q6H PRN 06/06/16 Brinzolamide/Brimonidine Tart [Simbrinza 1%-0.2% Eye Drops] 1 drop OP BID Budesonide/Formoterol Fumarate [Symbicort 160-4.5 Mcg Inhaler] 2 puff IH BID Tiotropium [place] [Spiriva] 18 mcg IH DAILY 06/06/16 predniSONE [Prednisone*] 5 mg PO DAILY #30 tab 06/08/16 Insulin Glargine,Hum.rec.anlog [Lantus] 5 unit SQ DAILY WITH BREAKFAST 01/29/17 Cyclopentolate 1% [Cyclogyl 1%*] 1 drops EACH EYE PRN PRN 04/02/19 Levothyroxine [Synthroid*] 88 mcg PO [id number] 04/02/19 Metoprolol Tartrate [Lopressor*] 25 mg PO BID 04/02/19 Patient Discharge Instructions: Patient to resume all his home medications Diet: ADA
[2019-04-04 12:40] VITALS: BP 148/67; TEMP 97.1
== END 2019-04-04 13:13 | disposition home or self-care (01) | DRG 639 ==
LOC: ER 05:56 → ERHOLD 09:19 → 3RD-ICU 11:21 → 2ND 04-03 13:35
PROVIDERS: ADMIT Family Medicine; ATTEND Family Medicine
DX: E10.10 Type 1 diabetes mellitus with ketoacidosis without coma (principal); J44.9 Chronic obstructive pulmonary disease, unspecified; I25.10 Atherosclerotic heart disease of native coronary artery without angina pectoris; E78.5 Hyperlipidemia, unspecified; E03.9 Hypothyroidism, unspecified; L89.151 Pressure ulcer of sacral region, stage 1; Z89.612 Acquired absence of left leg above knee; Z89.511 Acquired absence of right leg below knee; Z95.5 Presence of coronary angioplasty implant and graft; I25.2 Old myocardial infarction; Z87.891 Personal history of nicotine dependence
CPT/HCPCS: 36415; 71045; 80048; 80061; 80076; 82010; 82805; 82962; 83690; 83735; 84100; 85025; 96361; 96365; 96366; 96375; 99285; J1650; J2405; J2550; J3010; J3475; J7030; J7512

== ENCOUNTER 2019-04-30 09:03 | Inpatient (IN) | payer OTHER ==
--- OUTSIDE RECORDS SUMMARY | 2019-04-30 09:24 | XMS REPORT ---
:1955 Author Organization [facility] Address [address] [place] [address] Care Team Providers Name Role Phone LAMONT [...] (BEAKER) (test 268 mg/dL 70-110 TESTED AT [facility] [address] [facility] tbfw=8719) [facility] [address] POCT-GLUCOSE [id number] 07:49:00 Test Item Value Reference Range Comments POC-GLUCOSE METER (BEAKER) 219 mg/dL 70-110 TESTED AT [facility] [address] [facility] (test tcax=5978) [facility] [address] BASIC METABOLIC [id number] 07:26:00 Test Item Value Reference Range Comments SODIUM (BEAKER) (test 134 meq/L 136-145 xghy=952) POTASSIUM (BEAKER) (test 3.6 meq/L 3.5-5.1 xwsq=447) CHLORIDE (BEAKER) (test 103 meq/L 98-107 hrdz=990) CO2 (BEAKER) (test 23 meq/L 22-29 oqzf=454) BLOOD UREA NITROGEN 21 mg/dL 7-21 (BEAKER) (test eexf=346) CREATININE (BEAKER) (test 1.23 mg/dL 0.57-1.25 opzj=054) GLUCOSE RANDOM (BEAKER) 212 mg/dL 70-105 (test vhqu=493) CALCIUM (BEAKER) (test 9.0 mg/dL 8.4-10.2 qpor=953) EGFR (BEAKER) (test 60 mL/min/1.73 sq m ESTIMATED GFR IS NOT mnxc=8495) ACCURATE CREATININE CLEARANCE IN PREDICTING GLOMERULAR FILTRATION RATE. ESTIMATED GFR IS NOT APPLICABLE FOR DIALYSIS PATIENTS. CBC W/PLT COUNT & AUTO [id number] 06:02:00 Test Item Value Reference Range Comments WHITE BLOOD CELL COUNT (BEAKER) (test wwjb=363) 6.5 K/ L 4.0-10.0 RED BLOOD CELL COUNT (BEAKER) (test rrzw=256) 3.90 M/ L 4.20-5.80 HEMOGLOBIN (BEAKER) (test wlfp=033) 12.0 GM/DL 13.0-16.8 HEMATOCRIT (BEAKER) (test mmxl=507) 36.0 % 40.0-50.0 MEAN CORPUSCULAR VOLUME (BEAKER) (test wnwh=275) 92.2 fL 82.0-98.0 MEAN CORPUSCULAR HEMOGLOBIN (BEAKER) (test 30.8 pg 27.0-33.0 corw=178) MEAN CORPUSCULAR HEMOGLOBIN CONC (BEAKER) (test 33.4 GM/DL 32.0-36.0 vhpj=401) RED CELL DISTRIBUTION WIDTH (BEAKER) (test 12.2 % 10.3-14.2 rspk=936) PLATELET COUNT (BEAKER) (test gdzu=324) 187 K/CU MM 150-430 MEAN PLATELET VOLUME (BEAKER) (test gcjg=392) 8.0 fL 6.5-10.5 NUCLEATED RED BLOOD CELLS (BEAKER) (test 0 /100 WBC 0-0 nnml=057) NEUTROPHILS RELATIVE PERCENT (BEAKER) (test 58 % fowg=561) LYMPHOCYTES RELATIVE PERCENT (BEAKER) (test 23 % rjtm=866) MONOCYTES RELATIVE PERCENT (BEAKER) (test 11 % ihms=996) EOSINOPHILS RELATIVE PERCENT (BEAKER) (test 7 % hkmp=706) BASOPHILS RELATIVE PERCENT (BEAKER) (test 1 % cule=831) NEUTROPHILS ABSOLUTE COUNT (BEAKER) (test 3.78 K/ L 1.80-8.00 bifo=089) LYMPHOCYTES ABSOLUTE COUNT (BEAKER) (test 1.52 K/ L 1.48-4.50 bcps=078) MONOCYTES ABSOLUTE COUNT (BEAKER) (test 0.73 K/ L 0.00-1.30 gmli=068) EOSINOPHILS ABSOLUTE COUNT (BEAKER) (test 0.48 K/ L 0.00-0.50 cimy=578) BASOPHILS ABSOLUTE COUNT (BEAKER) (test 0.04 K/ L 0.00-0.20 hfny=388) 0.00POCT-GLUCOSE [id number] 23:23:00 Test Item Value Reference Range Comments POC-GLUCOSE METER (BEAKER) 339 mg/dL 70-110 TESTED AT [address] (test ojiz=0487) [facility] [address] POCT-GLUCOSE [id number] 19:55:00 Test Item Value Reference Range Comments POC-GLUCOSE METER (BEAKER) 366 mg/dL 70-110 Will Repeat Test/TESTED AT (test drbv=8857) [address] [address] POCT-GLUCOSE [id number] 18:14:00 Test Item Value Reference Range Comments POC-GLUCOSE METER (BEAKER) 410 mg/dL 70-110 TESTED AT [address] (test redp=6363) [facility] [address] POCT-GLUCOSE [id number] 16:43:00 Test Item Value Reference Range Comments POC-GLUCOSE METER (BEAKER) 403 mg/dL 70-110 Notified NEGRA FONSECA/TESTED AT [facility] (test miah=6538) [address] [place] [address] CBC W/PLT COUNT & AUTO [id number] 11:17:00 Test Item Value Reference Range Comments WHITE BLOOD CELL COUNT (BEAKER) (test jguf=039) 8.5 K/ L 4.0-10.0 RED BLOOD CELL COUNT (BEAKER) (test wuuv=199) 4.34 M/ L 4.20-5.80 HEMOGLOBIN (BEAKER) (test inag=693) 13.1 GM/DL 13.0-16.8 HEMATOCRIT (BEAKER) (test wdiy=466) 40.4 % 40.0-50.0 MEAN CORPUSCULAR VOLUME (BEAKER) (test dfze=825) 93.1 fL 82.0-98.0 MEAN CORPUSCULAR HEMOGLOBIN (BEAKER) (test 30.1 pg 27.0-33.0 qmpt=975) MEAN CORPUSCULAR HEMOGLOBIN CONC (BEAKER) (test 32.3 GM/DL 32.0-36.0 vpjb=734) RED CELL DISTRIBUTION WIDTH (BEAKER) (test 13.4 % 10.3-14.2 zijr=216) PLATELET COUNT (BEAKER) (test brjq=415) 190 K/CU MM 150-430 MEAN PLATELET VOLUME (BEAKER) (test pnix=125) 8.3 fL 6.5-10.5 NUCLEATED RED BLOOD CELLS (BEAKER) (test 0 /100 WBC 0-0 lsoe=065) NEUTROPHILS RELATIVE PERCENT (BEAKER) (test 68 % bysa=610) LYMPHOCYTES RELATIVE PERCENT (BEAKER) (test 18 % eyba=307) MONOCYTES RELATIVE PERCENT (BEAKER) (test 7 % isaj=635) EOSINOPHILS RELATIVE PERCENT (BEAKER) (test 5 % brrv=588) BASOPHILS RELATIVE PERCENT (BEAKER) (test 1 % hegw=367) NEUTROPHILS ABSOLUTE COUNT (BEAKER) (test 5.84 K/ L 1.80-8.00 zsih=203) LYMPHOCYTES ABSOLUTE COUNT (BEAKER) (test 1.57 K/ L 1.48-4.50 wpyi=497) MONOCYTES ABSOLUTE COUNT (BEAKER) (test 0.62 K/ L 0.00-1.30 ieal=168) EOSINOPHILS ABSOLUTE COUNT (BEAKER) (test 0.44 K/ L 0.00-0.50 bjik=256) BASOPHILS ABSOLUTE COUNT (BEAKER) (test 0.06 K/ L 0.00-0.20 sbib=201) 0.00POCT-GLUCOSE [id number] 08:34:00 Test Item Value Reference Range Comments POC-GLUCOSE METER (BEAKER) 293 mg/dL 70-110 TESTED AT [facility] [address] [facility] (test lnac=8890) [facility] [address] CBC W/PLT COUNT & AUTO [id number] 07:38:00 Test Item Value Reference Range Comments WHITE BLOOD CELL COUNT (BEAKER) K/ L 4.0-10.0 clotThis is a corrected (test vimr=555) result. Previous result was 0.0 K/ L on 01/31/2017 at 0733 CDT RED BLOOD CELL COUNT (BEAKER) M/ L 4.20-5.80 clotThis is a corrected (test nnjn=297) result. Previous result was 2.30 M/ L on 01/31/2017 at 0733 CDT HEMOGLOBIN (BEAKER) (test GM/DL 13.0-16.8 clotThis is a corrected qxsl=488) result. Previous result was 9.8 GM/DL on 01/31/[address] [place], [place] [address] HEMATOCRIT (BEAKER) (test % 40.0-50.0 clotThis is a corrected zvkv=901) result. Previous result was 21.4 % on 01/31/[address] [place], [place] [address] MEAN CORPUSCULAR VOLUME fL 82.0-98.0 clotThis is a corrected (BEAKER) (test xgfi=495) result. Previous result was 92.8 fL on 01/31/[address] [place], [place] [address] MEAN CORPUSCULAR HEMOGLOBIN pg 27.0-33.0 clotThis is a corrected (BEAKER) (test hlbs=989) result. Previous result was 42.5 pg on 01/31/[address] [place], [place] [address] MEAN CORPUSCULAR HEMOGLOBIN GM/DL 32.0-36.0 clotThis is a corrected CONC (BEAKER) (test ongj=644) result. Previous result was 45.8 GM/DL on 01/31/[address] [place], [place] [address] RED CELL DISTRIBUTION WIDTH % 10.3-14.2 clotThis is a corrected (BEAKER) (test chfg=762) result. Previous result was 12.1 % on 01/31/[address] [place], [place] [address] PLATELET COUNT (BEAKER) (test K/CU MM 150-430 clotThis is a corrected fzym=304) result. Previous result was 168 K/CU MM on 01/31/[address] [place], [place] [address] MEAN PLATELET VOLUME (BEAKER) fL 6.5-10.5 clotThis is a corrected (test pgje=852) result. Previous result was 8.1 fL on 01/31/[address] [place], [place] [address] NUCLEATED RED BLOOD CELLS /100 WBC 0-0 This is a corrected result. (BEAKER) (test saow=361) Previous result was 0 /100 WBC on 01/31/[address] [place], [place] [address]T 0.000.850.000.000.000.000.000.00BASIC METABOLIC [id number] 06:27:00 Test Item Value Reference Range Comments SODIUM (BEAKER) (test 135 meq/L 136-145 ybll=673) POTASSIUM (BEAKER) (test 4.6 meq/L 3.5-5.1 Specimen slightly xjbh=222) hemolyzed CHLORIDE (BEAKER) (test 106 meq/L 98-107 nxhm=062) CO2 (BEAKER) (test 17 meq/L 22-29 uhgt=902) BLOOD UREA NITROGEN 20 mg/dL 7-21 (BEAKER) (test tnzl=615) CREATININE (BEAKER) (test 0.94 mg/dL 0.57-1.25 Specimen slightly xgza=425) hemolyzed GLUCOSE RANDOM (BEAKER) 237 mg/dL 70-105 (test tcnq=369) CALCIUM (BEAKER) (test 9.1 mg/dL 8.4-10.2 lnjm=454) EGFR (BEAKER) (test 82 mL/min/1.73 sq m ESTIMATED GFR IS NOT vuoh=4919) ACCURATE CREATININE CLEARANCE IN PREDICTING GLOMERULAR FILTRATION RATE. ESTIMATED GFR IS NOT APPLICABLE FOR DIALYSIS PATIENTS. POCT-GLUCOSE [id number] 21:00:00 Test Item Value Reference Range Comments POC-GLUCOSE METER (BEAKER) 203 mg/dL 70-110 TESTED AT [facility] [address] (test lnay=7014) [facility] [address]
--- OUTSIDE RECORDS SUMMARY | 2019-04-30 09:24 | XMS REPORT | Clinical Summary ---
:1955 Author Organization [facility] Address [address] [place] [address] Care Team Providers Name Role Phone Alexis [...] Not on file Results Not on fileafter 04/29/2018 Insurance Payer Benefit Plan / Group Subscriber ID Type Phone Address MEDICARE MEDICARE A B xxxxxxxxxx Medicare Advance Directives For more information, please contact:[place] [address] [place], [place] [phone] Code Status Date Activated Date Inactivated Comments Partial Code 01/30/2017 10:30 PM 02/01/2017 6:08 PM This code status was determined by: Patient Drug Protocol After Arrest Occurs? Yes Mechanical Ventilation with Intubation? No Bag/Mask? No Internal/External Pacemaker? No Transfer to Critical Care? No Chest Compressions? No Defibrillation/Cardioversion? No
[2019-04-30] MEDS ORDERED: NA CHLORIDE 0.9% 1,000 ML ONE ×2 (10:18→12:14)
[2019-04-30 11:04] LABS: Urine Blood NEGATIVE (NEG); Urine Glucose 2+ (NEG); Urine Protein NEGATIVE (NEG)
--- NOTE | 2019-04-30 11:06 | EKG ---
Test Date: 2019-04-30 Test Time: 09:54:16 Community Health Navigator: LISSA MEASUREMENT RESULTS: Intervals: Rate: 101 LA: 146 QRSD: 102 QT: 384 QTc: 497 [place]: P: 85 LA: 146 QRS: 244 T: 80 INTERPRETIVE STATEMENTS: Sinus tachycardia Right atrial enlargement Right superior axis deviation Pulmonary disease pattern Abnormal ECG Compared to ECG 07/08/2017 10:57:42 Atrial abnormality now present Right superior axis now present Sinus rhythm no longer present Left-axis deviation no longer present ST (T wave) deviation no longer present Prolonged QT interval no longer present Electronically Signed On 04-30-19 11:05:47 CDT by Kleber Mitchell
[2019-04-30 11:10] LABS: Urine Bacteria NONE SEEN /HPF (NONE SEEN); Urine RBC <5 /HPF (NONE SEEN)
[2019-04-30 11:11] LABS: Urine Culture Reflex Order NOT NEEDED
--- NOTE | 2019-04-30 11:13 | RAD REPORT ---
EXAM DESCRIPTION: Russel Single View04/30/2019 11:07 am CLINICAL HISTORY: Chest pain COMPARISON: March 2019 FINDINGS: The lungs are hyperaerated. Lungs appear clear of acute infiltrate The heart is normal size IMPRESSION: No acute abnormalities displayed
[2019-04-30 11:18] LABS: Absolute Lymphocytes (CBC) 1.5 K/uL (0.7-4.9); Basophils % 0.7 % (0-1.3); Hematocrit 40.8 % (39.6-49.0); Lymphocytes % 16.1 % (15.3-44.8); MPV 9.9 fL (7.6-11.3); Protime INR 1.06; RBC Red Blood Cell Count 4.43 M/uL (4.33-5.43)
[2019-04-30 11:52] LABS: ALT/SGPT 19 U/L (12-78); AST/SGOT 19 U/L (15-37); Alkaline Phosphatase 115 U/L (45-117); BUN Blood Urea Nitrogen 34 mg/dL (7-18); Bilirubin Direct 0.3 mg/dL (0-0.2); Bilirubin Total 0.9 mg/dL (0.2-1.0); Glucose Level 351 mg/dL (74-106); Magnesium 1.9 mg/dL (1.8-2.4); NT PRO-BNP 276 pg/mL (<125); Potassium 4.8 mmol/L (3.5-5.1); Protein, Total 7.9 g/dL (6.4-8.2); Sodium Level 139 mmol/L (136-145); Troponin (Emerg Dept Use Only) < 0.02 ng/mL (0.0-0.045)
[2019-04-30 11:53] LABS: Bicarbonate 12 mmol/L (21-32)
--- NOTE | 2019-04-30 12:16 | ER ---
Nurse's Notes [facility] Name: Edson Spence Age: 63 yrs Sex: Male : 1955 Arrival Date: 04/30/2019 Time: 09:31 Bed 6 Private MD: Diagnosis: Diabetes mellitus due to underlying condition with ketoacidosis Presentation: 04/30 09:31 Presenting complaint: EMS states: Been feeling bad for a week, worsened this morning, jl7 C/O nausea, denies vomiting. Transition of care: patient was not received from another setting of care. Onset of symptoms was April 24, 2019. Risk Assessment: Do you want to hurt yourself or someone else? Patient reports no desire to harm self or others. Initial Sepsis Screen: Does the patient meet any 2 criteria? RR > 20 per min. HR > 90 bpm. Yes Does the patient have a suspected source of infection? No. Patient's initial sepsis screen is negative. Care prior to arrival: Medication(s) given: Normal saline infusion, 500 mL, IV initiated. 20 GA, in the left forearm, Glucose check: 265. 09:31 Method Of Arrival: EMS: [facility] 7 09:31 Acuity: CHRISTOPHER 3 jl7 Triage Assessment: 09:42 General: Appears in no apparent distress. uncomfortable, ill, Behavior is calm, jl7 cooperative, appropriate for age. Pain: Complains of pain in "All over.". Neuro: Level of Consciousness is obeys commands, lethargic, Oriented to person, place, time, situation. Cardiovascular: Denies chest pain, Heart tones present Patient's skin is warm and dry. Respiratory: Airway is patent Respiratory effort is even, unlabored, Respiratory pattern is regular, symmetrical, Breath sounds are clear bilaterally. Denies shortness of breath. GI: Reports nausea, vomiting. : No signs and/or symptoms were reported regarding the genitourinary system. Derm: Skin is dry, Skin is pale, Skin temperature is cold. Musculoskeletal: No signs and/or symptoms reported regarding the musculoskeletal system. Historical: - Allergies: 09:42 NKA; jl7 - Home Meds: 09:42 aspirin 81 mg Oral TbEC 1 tab once daily [Active]; BRILINTA 90 mg Oral tab 1 tab 2 jl7 times per day [Active]; insulin [Active]; levothyroxine 100 mcg tab 1 tab once daily [Active]; metoprolol tartrate 25 mg Oral tab 1 tab 2 times per day [Active]; simvastatin 40 mg Oral tab 1 tab nightly [Active]; - PMHx: 09:42 COPD; Diabetes - IDDM; High Cholesterol; Hypertension; Hypothyroidism; Myocardial jl7 infarction; - PSHx: 09:42 Heart stents; Left AKA; Right BKA; jl7 - Immunization history:: Adult Immunizations up to date. - Ebola Screening: : No symptoms or risks identified at this time. - Social history:: Smoking status: Patient/guardian denies using tobacco. Screenin:00 Abuse screen: Denies threats or abuse. Denies injuries from another. Nutritional jl7 screening: No deficits noted. Tuberculosis screening: No symptoms or risk factors identified. Fall Risk IV access (20 points). Total Martinez Fall Scale indicates No Risk (0-24 pts). Assessment: 09:45 General: See triage assessment. jl7 10:45 Reassessment: Patient appears in no apparent distress at this time. No changes from jl7 previously documented assessment. Patient and/or family updated on plan of care and expected duration. Pain level reassessed. Patient is alert, oriented x 3, equal unlabored respirations, skin warm/dry/pink. 10:55 Reassessment: Lab coming to draw labs. jl7 12:00 Reassessment: Patient appears in no apparent distress at this time. Patient and/or [facility] family updated on plan of care and expected duration. Pain level reassessed. Patient is alert, oriented x 3, equal unlabored respirations, skin warm/dry/pink. 12:30 Reassessment: Insulin drip started at 4 units/hour per KAREN Vidal. jl7 12:57 Reassessment: Dr. Bains at bedside discussing plan of care. jl7 14:00 Reassessment: VO to redraw basic and decrease Insulin drip to 2 units/hour per Willy KAREN Gomez. 14:39 Reassessment: NEGRA Franz attempted to draw repeat labs, unsuccessful, Lab notified and [facility] will redraw labs. 15:30 Reassessment: Patient appears in no apparent distress at this time. No changes from jl7 previously documented assessment. Patient and/or family updated on plan of care and expected duration. Pain level reassessed. Patient is alert, oriented x 3, equal unlabored respirations, skin warm/dry/pink. Patient states symptoms have not improved. 16:30 Reassessment: Patient appears in no apparent distress at this time. No changes from [facility] previously documented assessment. Patient and/or family updated on plan of care and expected duration. Pain level reassessed. Patient is alert, oriented x 3, equal unlabored respirations, skin warm/dry/pink. 17:30 Reassessment: Patient appears in no apparent distress at this time. No changes from [facility] previously documented assessment. Patient and/or family updated on plan of care and expected duration. Pain level reassessed. Patient is alert, oriented x 3, equal unlabored respirations, skin warm/dry/pink. 18:37 Reassessment: Pt's BGL is 142, insulin infusion stopped per protocol. Attempted to call [facility] Dr. Bains, no answer and his voicemail is full. KAREN Vidal ordered to repeat BMP at this time. 18:56 Reassessment: Attempted to call report, nurse unavailable. [facility] 19:41 Reassessment: Patient appears in no apparent distress at this time. No changes from previously documented assessment. Patient and/or family updated on plan of care and expected duration. Pain level reassessed. Patient is alert, oriented x 3, equal unlabored respirations, skin warm/dry/pink. BS Rechecked 145. Vital Signs: 09:42 BP 114 / 52; Pulse 102; Resp 17 S; Temp 97.4(O); Pulse Ox 97% on R/A; jl7 10:43 BP 91 / 37; Pulse 91; Resp 16 S; Pulse Ox 98% on R/A; jl7 12:00 BP 64 / 47; Pulse 102; Resp 16; Pulse Ox 97% ; jl7 12:06 Weight 40.82 kg (R); 7 12:09 BP 95 / 27; Pulse 105; Resp 16 S; Pulse Ox 97% on R/A; jl7 12:36 Weight 46 kg (M); jl7 14:16 BP 115 / 50; Pulse 107; Resp 19 S; Pulse Ox 100% on R/A; jl7 15:00 BP 113 / 50; Pulse 102; Resp 16 S; Pulse Ox 98% on R/A; jl7 16:30 BP 122 / 44; Pulse 101; Resp 15 S; Pulse Ox 97% on R/A; jl7 18:01 BP 95 / 64; Pulse 101; Resp 16; Pulse Ox 97% ; jl7 19:30 BP 128 / 51; Pulse 94; Resp 18; Pulse Ox 98% on R/A; ED Course: 09:31 Patient arrived in ED. jl7 09:39 Willy Salazar PA is PHCP. cp 09:39 Ilene Ho MD is Attending Physician. cp 09:41 Triage completed. jl7 09:42 Arm band placed on right wrist. jl7 09:45 Patient has correct armband on for positive identification. Placed in gown. Bed in low jl7 position. Call light in reach. Side rails up X2. telemetry monitor on. Pulse ox on. NIBP on. Warm blanket given. 09:57 Evie Ireland RN is Primary Nurse. jl7 09:58 EKG done, by logistics tech. reviewed by Willy JONES. at1 10:28 Inserted saline lock: 22 gauge in right wrist, using aseptic technique. Blood collected.bp 11:08 XRAY Chest (1 view) In Process Unspecified. EDMS 12:14 Carlton Bains is Hospitalizing Provider. cp 13:00 No provider procedures requiring assistance completed. Patient admitted, IV remains in jl7 place. intact, No redness/swelling at site. 19:30 Primary Nurse role handed off by Evie Ireland RN jl7 19:31 Rafa Machado is Primary Nurse. Administered Medications: 10:28 Drug: NS 0.9% 1000 ml Route: IV; Rate: 1 bolus; Site: right wrist; bp 11:45 Follow up: Response: No adverse reaction; IV Status: Completed infusion; IV Intake: jl7 1000ml 12:25 Drug: NS 0.9% 1000 ml Route: IV; Rate: 1 bolus; Site: right hand; jl7 13:45 Follow up: IV Status: Completed infusion; IV Intake: 1000ml jl7 12:30 Drug: Insulin Drip - (Insulin Regular Human 100 units, NS 0.9% 100 ml) {Co-Signature: jl7 bp (German Echeverria RN).} Route: IV; Rate: calculated rate; Site: right hand; 14:05 Follow up: Rate change 2 units/hr jl7 18:40 Follow up: IV Status: IV converted to saline lock; Order to discontinue infusion jl7 19:05 Drug: D5-1/2 NS with KCl 20 mEq/L 1000 ml Route: IV; Rate: 150 ml/hr; Site: right wrist;7 20:36 Follow up: Response: No adverse reaction; IV Status: Infusion continued upon admission Point of Care Testing: Blood Glucose: 10:44 Blood Glucose: 363 mg/dL; jl7 13:57 Blood Glucose: 234 mg/dL; jl7 16:42 Blood Glucose: 213 mg/dL; jl7 18:21 Blood Glucose: 142 mg/dL; jl7 19:30 Blood Glucose: 145 mg/dL; Ranges: Intake: 11:45 IV: 1000ml; Total: 1000ml. jl7 13:45 IV: 1000ml; Total: 2000ml. 7 Outcome: 12:16 Decision to Hospitalize by Provider. cp 20:35 Admitted to ICU accompanied by nurse, via stretcher, room 7, on monitor, with chart, Report called to Sally Mary RN 20:35 Condition: good 20:35 Instructed on the need for admit. 20:37 Patient left the ED. Signatures: Dispatcher [employer] EDMS Concha De, trust officer EKG Tat1 Willy Salazar PA PA cp Leal, Jahala, RN RN 7 Rafa Machado Brian, RN RN bp German Echeverria RN bp Corrections: (The following items were deleted from the chart) 18:03 13:30 IV Status: Completed infusion jl7
--- NOTE | 2019-04-30 12:17 | EDPHYS ---
Physician Documentation [facility] Name: Edsno Spence Age: 63 yrs Sex: Male : 1955 Arrival Date: 04/30/2019 Time: 09:31 Bed 6 Private MD: ED Physician Ilene Ho HPI: 04/30 09:50 This 63 yrs old Male presents to ER via EMS with complaints of General cp Weakness. 09:50 general weakness. cp Historical: - Allergies: 09:42 NKA; jl7 - Home Meds: 09:42 aspirin 81 mg Oral TbEC 1 tab once daily [Active]; BRILINTA 90 mg Oral tab 1 tab 2 jl7 times per day [Active]; insulin [Active]; levothyroxine 100 mcg tab 1 tab once daily [Active]; metoprolol tartrate 25 mg Oral tab 1 tab 2 times per day [Active]; simvastatin 40 mg Oral tab 1 tab nightly [Active]; - PMHx: 09:42 COPD; Diabetes - IDDM; High Cholesterol; Hypertension; Hypothyroidism; Myocardial jl7 infarction; - PSHx: 09:42 Heart stents; Left AKA; Right BKA; jl7 - Immunization history:: Adult Immunizations up to date. - Ebola Screening: : No symptoms or risks identified at this time. - Social history:: Smoking status: Patient/guardian denies using tobacco. ROS: 09:55 Constitutional: Positive for poor PO intake, Negative for body aches, chills, fever. cp 09:55 Eyes: Negative for injury, pain, redness, and discharge. cp 09:55 ENT: Negative for drainage from ear(s), ear pain, sore throat, difficulty swallowing, difficulty handling secretions. 09:55 Cardiovascular: Negative for chest pain, edema, palpitations. 09:55 Respiratory: Negative for cough, shortness of breath, wheezing. 09:55 Abdomen/GI: Negative for abdominal pain, nausea, vomiting, and diarrhea, constipation, black/tarry stool, rectal bleeding. 09:55 Back: Negative for pain at rest, pain with movement. 09:55 Skin: Negative for cellulitis, rash. 09:55 Neuro: Positive for weakness, Negative for altered mental status, dizziness, headache. 09:55 All other systems are negative. Exam: 10:00 Constitutional: The patient appears in no acute distress, alert, awake, cp non-diaphoretic, non-toxic, well developed, well nourished, obviously ill. 10:00 Head/Face: Normocephalic, atraumatic. cp 10:00 Eyes: Periorbital structures: appear normal, Pupils: equal, round, and reactive to light and accomodation, Extraocular movements: intact throughout, Conjunctiva: normal, no exudate, no injection, Sclera: no appreciated abnormality, Lids and lashes: appear normal, bilaterally. 10:00 ENT: External ear(s): are unremarkable, Ear canal(s): are normal, clear, TM's: bulging, is not appreciated, bilaterally, dullness, bilaterally, erythema, is not appreciated, bilaterally, Nose: is normal, Mouth: Lips: dry, Oral mucosa: dry, Posterior pharynx: Airway: no evidence of obstruction, patent, Tonsils: are normal in appearance, Uvula: normal, erythema, is not appreciated, exudate, is not appreciated. 10:00 Neck: ROM/movement: is normal, is supple, without pain, no range of motions limitations, no meningismus, no nuchal rigidity. 10:00 Chest/axilla: Inspection: normal, Palpation: is normal, no crepitus, no tenderness. 10:00 Cardiovascular: Rate: tachycardic, Rhythm: regular, JVD: is not appreciated. 10:00 Respiratory: the patient does not display signs of respiratory distress, Respirations: normal, no use of accessory muscles, no retractions, no splinting, no tachypnea, labored breathing, is not present, Breath sounds: are clear throughout, no decreased breath sounds, no stridor, no wheezing. 10:05 ECG was reviewed by the Attending Physician. cp Vital Signs: 09:42 BP 114 / 52; Pulse 102; Resp 17 S; Temp 97.4(O); Pulse Ox 97% on R/A; jl7 10:43 BP 91 / 37; Pulse 91; Resp 16 S; Pulse Ox 98% on R/A; jl7 12:00 BP 64 / 47; Pulse 102; Resp 16; Pulse Ox 97% ; jl7 12:06 Weight 40.82 kg (R); jl7 12:09 BP 95 / 27; Pulse 105; Resp 16 S; Pulse Ox 97% on R/A; jl7 12:36 Weight 46 kg (M); jl7 14:16 BP 115 / 50; Pulse 107; Resp 19 S; Pulse Ox 100% on R/A; jl7 15:00 BP 113 / 50; Pulse 102; Resp 16 S; Pulse Ox 98% on R/A; jl7 16:30 BP 122 / 44; Pulse 101; Resp 15 S; Pulse Ox 97% on R/A; jl7 18:01 BP 95 / 64; Pulse 101; Resp 16; Pulse Ox 97% ; jl7 19:30 BP 128 / 51; Pulse 94; Resp 18; Pulse Ox 98% on R/A; MDM: 09:44 Patient medically screened. 12:14 Physician consultation: Carlton Bains was called at 12:14, was contacted at 12:14, regarding admission, to the ICU, patient's condition. 12:15 Data reviewed: vital signs, nurses notes, lab test result(s), EKG, radiologic studies, cp plain films, I have discussed the patient's presentation/case with the attending Emergency Department Physician; and as a result, I will admit patient. 04/30 09:46 Order name: Basic Metabolic Panel; Complete Time: 11:55 04/30 12:06 Interpretation: Normal except: CO2 12; GLUC 351; BUN 34; CRE 1.65; GFR 42. 04/30 09:46 Order name: CBC with Diff; Complete Time: 11:55 04/30 09:46 Order name: LFT's; Complete Time: 11:55 04/30 09:46 Order name: Magnesium; Complete Time: 11:55 04/30 09:46 Order name: NT PRO-BNP; Complete Time: 11:55 04/30 09:46 Order name: PT-INR; Complete Time: 11:55 04/30 09:46 Order name: Troponin (emerg Dept Use Only); Complete Time: 11:55 04/30 09:46 Order name: Procalcitonin; Complete Time: 11:55 04/30 09:46 Order name: Lactate; Complete Time: 11:55 04/30 09:46 Order name: Blood Culture Adult (2) 04/30 09:46 Order name: Urine Microscopic Only; Complete Time: 11:55 09/12 11:00 Order name: Urine Dipstick--Ancillary (enter results); Complete Time: 11:55 bd 04/30 11:58 Order name: Ketone, Serum; Complete Time: 17:58 cp 04/30 11:58 Order name: ABG; Complete Time: 17:58 cp 12 09:46 Order name: XRAY Chest (1 view); Complete Time: 11:55 cp 04/30 09:46 Order name: EKG; Complete Time: 09:47 cp 04/30 09:46 Order name: Cardiac monitoring; Complete Time: 10:34 12 12:49 Order name: Glucose, Ancillary Testing; Complete Time: 17:58 [facility] 04/30 14:14 Order name: Basic Metabolic Panel; Complete Time: 17:58 [facility] 04/30 18:39 Order name: BMP [facility] 04/30 20:12 Order name: CONS Diabetic Education Consul [facility] 04/30 20:12 Order name: CONS Pharmacy Consult [facility] 04/30 20:12 Order name: NPO [facility] 04/30 20:12 Order name: Basic Metabolic Panel [facility] 04/30 20:12 Order name: Basic Metabolic Panel [facility] 04/30 20:12 Order name: Basic Metabolic Panel [facility] 04/30 09:46 Order name: EKG - Nurse/Tech; Complete Time: 10:34 04/30 09:46 Order name: IV Saline Lock; Complete Time: 10:34 04/30 09:46 Order name: Labs collected and sent; Complete Time: 10:34 04/30 09:46 Order name: O2 Per Protocol; Complete Time: 10:34 04/30 09:46 Order name: O2 Sat Monitoring; Complete Time: 10:34 04/30 09:46 Order name: Accucheck Blood Glucose; Complete Time: 10:37 04/30 09:46 Order name: Urine Dipstick-Ancillary (obtain specimen); Complete Time: 10:37 04/30 10:45 Order name: Labs - recollect needed: All labs; Complete Time: 12:10 ss EC:05 Rate is 101 beats/min. Rhythm is regular. MN interval is normal. QRS interval is cp prolonged at 102 msec. QT interval is normal. T waves are Inverted in lead aVR. Interpreted by me. Reviewed by me. Administered Medications: 10:28 Drug: NS 0.9% 1000 ml Route: IV; Rate: 1 bolus; Site: right wrist; 11:45 Follow up: Response: No adverse reaction; IV Status: Completed infusion; IV Intake: jl7 1000ml 12:25 Drug: NS 0.9% 1000 ml Route: IV; Rate: 1 bolus; Site: right hand; jl7 13:45 Follow up: IV Status: Completed infusion; IV Intake: 1000ml [facility] 12:30 Drug: Insulin Drip - (Insulin Regular Human 100 units, NS 0.9% 100 ml) {Co-Signature: [facility] bp (German Echeverria RN).} Route: IV; Rate: calculated rate; Site: right hand; 14:05 Follow up: Rate change 2 units/hr jl7 18:40 Follow up: IV Status: IV converted to saline lock; Order to discontinue infusion jl7 19:05 Drug: D5-1/2 NS with KCl 20 mEq/L 1000 ml Route: IV; Rate: 150 ml/hr; Site: right wrist;jl7 20:36 Follow up: Response: No adverse reaction; IV Status: Infusion continued upon admission Point of Care Testing: Blood Glucose: 10:44 Blood Glucose: 363 mg/dL; jl7 13:57 Blood Glucose: 234 mg/dL; jl7 16:42 Blood Glucose: 213 mg/dL; jl7 18:21 Blood Glucose: 142 mg/dL; jl7 19:30 Blood Glucose: 145 mg/dL; Ranges: Critical Glucose Levels:Adult <50 mg/dl or >400 mg/dl <40 mg/dl or >180 mg/dl Disposition: 19:11 Co-signature as Attending Physician, Ilene Ho MD. co2 Disposition: 04/30/19 12:16 Hospitalization ordered by Carlton Bains for Inpatient Admission. Preliminary diagnosis is Diabetes mellitus due to underlying condition with ketoacidosis. - Bed requested for Intensive Care Unit. - Status is Inpatient Admission. - Condition is Serious. - Problem is new. - Symptoms are unchanged. UTI on Admission? No Signatures: Dispatcher [employer] EDMS Shivani Gillis Shelby, RN RN ss Page, Corey, PA PA cp Leal, Jahala, RN RN [facility] Rafa Machado German Echeverria RN RN bp Alzahri, Mohammad, MD MD ma2 German Echeverria RN bp Corrections: (The following items were deleted from the chart) 18:33 12:16 Hospitalization Ordered by Carlton Bains for Inpatient Admission. Preliminary bd diagnosis is Diabetes mellitus due to underlying condition with ketoacidosis. Bed requested for Intensive Care Unit. Status is Inpatient Admission. Condition is Serious. Problem is new. Symptoms are unchanged. UTI on Admission? No. cp 20:37 18:33 04/30/2019 12:16 Hospitalization Ordered by Carlton Bains for Inpatient wh Admission. Preliminary diagnosis is Diabetes mellitus due to underlying condition with ketoacidosis. Bed requested for Intensive Care Unit. Status is Inpatient Admission. Condition is Serious. Problem is new. Symptoms are unchanged. UTI on Admission? No. bd
[2019-04-30 12:46] LABS: Blood Gas Oxyhemoglobin 94.1 % (94-97); Blood O2 Saturation 95.8 % (92-98.5)
[2019-04-30] MEDS ORDERED: INSULIN -REGULAR HUMAN 100 UNIT in NA CHLORIDE 0.9% 100 ML IV SCH ×2 (13:00→20:10)
--- NOTE | 2019-04-30 13:47 | P.HP ---
Certification for Inpatient Patient admitted to: Inpatient With expected LOS: >2 Midnights Practitioner: I am a practitioner with admitting privileges, knowledge of patient current condition, hospital course, and medical plan of care. Services: Services provided to patient in accordance with Admission requirements found in Title 42 Section 412.3 of the Code of Federal Regulations Patient History Date of Service: 04/30/19 Reason for admission: Generalize weakness and vomiting History of Present Illness: 63-year-old gentleman with a history of diabetes mellitus, noncompliant with medications including insulin presented emergency department with a complaint of generalized weakness. He states that he vomited once. He denied fever. In the emergency department his fingerstick glucose was in the 300s and BMP suggest patient has DKA with a high anionic gap. His urine is also positive for ketones. Patient admitted to not giving himself insulin over the past 1 week. He said bilateral leg amputee and stated he does not have access to food or cannot reaches insulin unless there is a family member available. He was hospitalized last month for similar reason. DKA protocol initiated in the ED. Patient is admitted further management of DKA. Allergies No Known Drug Allergies Allergy (Verified 12/29/14 09:09) Unknown No Known Allergies Allergy (Uncoded 05/02/16 00:28) Unknown Home Medications: Aspirin 81 mg PO DAILY 06/01/16 Insulin Aspart [Novolog*] See Protocol SQ AC 06/01/16 Simvastatin [Zocor*] 40 mg PO BEDTIME 06/01/16 Ticagrelor [Brilinta*] 90 mg PO BID* 06/01/16 Albuterol Inhaler [Ventolin Inhaler*] 2 puff IH Q6H PRN 06/06/16 Brinzolamide/Brimonidine Tart [Simbrinza 1%-0.2% Eye Drops] 1 drop OP BID Budesonide/Formoterol Fumarate [Symbicort 160-4.5 Mcg Inhaler] 2 puff IH BID Tiotropium [place] [Spiriva] 18 mcg IH DAILY 06/06/16 predniSONE [Prednisone*] 5 mg PO DAILY #30 tab 06/08/16 Insulin Glargine,Hum.rec.anlog [Lantus] 5 unit SQ DAILY WITH BREAKFAST 01/29/17 Cyclopentolate 1% [Cyclogyl 1%*] 1 drops EACH EYE PRN PRN 04/02/19 Levothyroxine [Synthroid*] 88 mcg PO [id number] 04/02/19 Metoprolol Tartrate [Lopressor*] 25 mg PO BID 04/02/19 - Past Medical/Surgical History Diabetic: Yes -: Hyperlipidemia -: IDDM -: Hypothyroidism -: COPD -: Left wrist fx 01/2014 -: Arthritis -: PAD -: DM -: [place] with 4 stents 2014 -: Cataract sx -: Hemmorhoidectomy -: L AKA 2004 -: Rt BKA - Family History Mother -: Diabetes - Social History Alcohol use: No CD- Drugs: No Caffeine use: Yes Review of Systems Lymphatics: Other Other: General: No fever, no malaise, no unintentional weight loss. Eyes: No eye discharge, Respiratory: No cough, no shortness of breath. CVS: No chest pain, no palpitation, no lightheadedness. GI: No abdominal pain, no constipation, no diarrhea. Genitourinary: No dysuria, no urinary frequency, no incontinence, no hematuria. Musculoskeletal: No joint pains, or joint swelling, no gait instability. Neurology: No headache, no asymmetric, weakness, no problem with swallowing. Except last documented, all other systems reviewed and negative. Physical Examination - Physical Exam General: Alert, In no apparent distress, Oriented x3 HEENT: Atraumatic, Normocephalic, PERRLA, Mucous membr. moist/pink Neck: Supple, JVD not distended, No Thyromegaly Respiratory: Clear to auscultation bilaterally, Normal air movement Cardiovascular: No edema, Normal pulses, Regular rate/rhythm, Normal S1 S2, No murmurs Capillary refill: <2 Seconds Gastrointestinal: Normal bowel sounds, Soft and benign, No tenderness Musculoskeletal: Other (Right BKA and left AKA.) Neurological: Normal strength at 5/5 x4 extr, Cranial nerves 3-12 intact Lymphatics: No axilla or inguinal lymphadenopathy - Studies Laboratory Data (last 24 hrs) 04/30/19 11:04: PT 12.5, INR 1.06 04/30/19 11:04: WBC 9.1, Hgb 13.5 L, Hct 40.8, Plt Count 186 04/30/19 11:04: Sodium 139, Potassium 4.8, BUN 34 H, Creatinine 1.65 H, Glucose 351 H, Magnesium 1.9, Total Bilirubin 0.9, AST 19, ALT 19, Alkaline Phosphatase 115 Assessment and Plan - Problems (Diagnosis) (1) DKA (diabetic ketoacidoses) Onset Date: 06/04/16 Current Visit: No Status: Resolved Qualifiers: Diabetes mellitus type: type 1 Diabetes mellitus complication detail: without coma Qualified Code(s): E10.10 - Type 1 diabetes mellitus with ketoacidosis without coma (2) Hypothyroidism Current Visit: No Status: Chronic Qualifiers: Hypothyroidism type: unspecified Qualified Code(s): E03.9 - Hypothyroidism , unspecified (3) CAD (coronary artery disease) Current Visit: No Status: Chronic Qualifiers: Coronary Disease-Associated Artery/Lesion type: unspecified vessel or lesion type [place] vs. transplanted heart: unspecified whether [place] or transplanted heart Associated angina: angina presence unspecified Qualified Code(s): I25.10 - Atherosclerotic heart disease of [place] coronary artery without angina pectoris - Plan Admit to ICU. DKA protocol initiated with insulin drip and IV hydration Fingerstick glucose monitoring. Check TSH Emphasize compliance to insulin and work out a scheduled with family to reduce hospitalizations for DKA. Discharge Plan: Home - Advance Directives Does patient have a Living Will: No Does patient have a Durable POA for Healthcare: Yes
[2019-04-30 15:35] LABS: Potassium 3.8 mmol/L (3.5-5.1)
[2019-04-30] MEDS ORDERED: D5.45NS W/KCL 20MEQ 1,000 ML IV ONE (18:46)
[2019-04-30 19:35] LABS: Potassium 3.7 mmol/L (3.5-5.1)
[2019-04-30] MEDS: NACHLORIDE 0.45% 1,000 ML with POTASSIUM CL 20 MEQ IV SCH ×2 (20:10)
[2019-04-30] MEDS: D5.45NS W/KCL 20MEQ 1,000 ML IV SCH (20:10)
[2019-04-30] MEDS ORDERED: ONDANSETRON 4 MG/2 ML VIAL IV PRN (20:10)
[2019-04-30] MEDS: HEPARIN 5000 UNIT/ML 1 ML VIAL SQ SCH (21:24)
[2019-04-30 23:12] VITALS: O2SAT 98
[2019-05-01] MEDS: NACHLORIDE 0.45% 1,000 ML with POTASSIUM CL 20 MEQ IV SCH ×6 (00:13→08:19)
[2019-05-01] MEDS: D5.45NS W/KCL 20MEQ 1,000 ML IV SCH (02:00)
[2019-05-01 04:14] LABS: Potassium 4.2 mmol/L (3.5-5.1)
[2019-05-01 05:30] LABS: Absolute Lymphocytes (CBC) 1.6 K/uL (0.7-4.9); Basophils % 0.6 % (0-1.3); Hematocrit 37.1 % (39.6-49.0); Lymphocytes % 19.8 % (15.3-44.8); MPV 9.3 fL (7.6-11.3); RBC Red Blood Cell Count 4.16 M/uL (4.33-5.43)
[2019-05-01 05:47] LABS: Magnesium 1.6 mg/dL (1.8-2.4); Phosphorus 1.4 mg/dL (2.5-4.9); Potassium 3.3 mmol/L (3.5-5.1)
[2019-05-01] MEDS ORDERED: POTASSIUM PHOS IN 0.9 % NACL 15 MMOL/250 ML BAG IV ONE (06:33)
[2019-05-01] MEDS ORDERED: MAGNESIUM SULFATE 1 gm IVPB 1 GM/100 ML BAG IV ONE (06:33)
[2019-05-01 06:58] LABS: Blood Morphology Comment NOT SEEN (NOT SEEN); Platelet Estimate ADEQ; Urine White Blood Cell Casts OK
[2019-05-01] MEDS: HEPARIN 5000 UNIT/ML 1 ML VIAL SQ SCH (08:22)
[2019-05-01] MEDS ORDERED: GLUCAGON 1 MG/VIAL IM PRN (11:30)
[2019-05-01] MEDS ORDERED: D50W 25 GM/50 ML SYRINGE IV PRN (11:30)
[2019-05-01] MEDS: INSULIN -REGULAR HUMAN 50 UNIT/0.5 ML ML SQ SCH ×2 (17:20→21:27)
--- NOTE | 2019-05-01 17:23 | P.DS ---
Admission Date: 04/30/19 Discharge Date: 05/01/19 Disposition: ROUTINE DISCHARGE Discharge Condition: GOOD Reason for Admission: Generalize weakness and vomiting - Problems (1) DKA (diabetic ketoacidoses) Onset Date: 06/04/16 Current Visit: No Status: Resolved Qualifiers: Diabetes mellitus type: type 1 Diabetes mellitus complication detail: without coma Qualified Code(s): E10.10 - Type 1 diabetes mellitus with ketoacidosis without coma (2) Hypothyroidism Current Visit: No Status: Chronic Qualifiers: Hypothyroidism type: unspecified Qualified Code(s): E03.9 - Hypothyroidism , unspecified (3) CAD (coronary artery disease) Current Visit: No Status: Chronic Qualifiers: Coronary Disease-Associated Artery/Lesion type: unspecified vessel or lesion type [place] vs. transplanted heart: unspecified whether [place] or transplanted heart Associated angina: angina presence unspecified Qualified Code(s): I25.10 - Atherosclerotic heart disease of [place] coronary artery without angina pectoris Brief History of Present Illness: 63-year-old gentleman with a history of diabetes mellitus, noncompliant with medications including insulin presented emergency department with a complaint of generalized weakness. He stated that he vomited once. He denied fever. In the emergency department his fingerstick glucose was in the 300s and BMP suggest patient has DKA with a high anionic gap. His urine was also positive for ketones. Patient admitted to not giving himself insulin over the past 1 week. He is a bilateral leg amputee and stated he does not have access to food or cannot reach his insulin unless there is a family member available. He was hospitalized last month for similar reason. DKA protocol initiated in the ED. Patient was admitted further management of DKA. Hospital Course: Patient admitted to the ICU. DKA protocol continued in ICU insulin drip and IV hydration. Anionic gap closed, DKA resolved, Patient was transitioned to his home dose Lantus insulin. He tolerated diet advanced. His blood sugar was within acceptable range. He is deemed clinically stable for discharge. Compliance to insulin therapy was emphasized. Vital Signs/Physical Exam: Temp Pulse Resp BP Pulse Ox 97.4 F 91 H 25 H 130/66 99 05/01/19 04:00 05/01/19 12:00 05/01/19 12:00 05/01/19 12:00 05/01/19 12:00 General: Alert, In no apparent distress, Oriented x3 HEENT: Mucous membr. moist/pink Neck: Supple Respiratory: Clear to auscultation bilaterally, Normal air movement Cardiovascular: No edema Gastrointestinal: Normal bowel sounds, Soft and benign, No tenderness Musculoskeletal: Other (Bilateral amputee) Neurological: Normal strength at 5/5 x4 extr Laboratory Data at Discharge: WBC 8.0 K/uL (4.3-10.9) 05/01/19 04:47 Hgb 13.1 g/dL (13.6-17.9) L 05/01/19 04:47 Hct 37.1 % (39.6-49.0) L 05/01/19 04:47 Plt Count 167 K/uL (152-406) 05/01/19 04:47 PT 12.5 SECONDS (9.5-12.5) 04/30/19 11:04 INR 1.06 04/30/19 11:04 Sodium 145 mmol/L (136-145) 05/01/19 04:47 Potassium 3.3 mmol/L (3.5-5.1) L 05/01/19 04:47 BUN 16 mg/dL (7-18) 05/01/19 04:47 Creatinine 1.05 mg/dL (0.55-1.3) 05/01/19 04:47 Glucose 187 mg/dL (74-106) H 05/01/19 04:47 Phosphorus 1.4 mg/dL (2.5-4.9) L 05/01/19 04:47 Magnesium 1.6 mg/dL (1.8-2.4) L 05/01/19 04:47 Total Bilirubin 0.9 mg/dL (0.2-1.0) 04/30/19 11:04 AST 19 U/L (15-37) 04/30/19 11:04 ALT 19 U/L (12-78) 04/30/19 11:04 Alkaline Phosphatase 115 U/L (45-117) 04/30/19 11:04 Home Medications: Aspirin 81 mg PO DAILY 06/01/16 Insulin Aspart [Novolog*] See Protocol SQ AC 06/01/16 Simvastatin [Zocor*] 40 mg PO BEDTIME 06/01/16 Albuterol Inhaler [Ventolin Inhaler*] 2 puff IH Q6H PRN 06/06/16 Brinzolamide/Brimonidine Tart [Simbrinza 1%-0.2% Eye Drops] 1 drop OP BID Budesonide/Formoterol Fumarate [Symbicort 160-4.5 Mcg Inhaler] 2 puff IH BID Insulin Glargine,Hum.rec.anlog [Lantus] 5 unit SQ DAILY WITH BREAKFAST 01/29/17 Cyclopentolate 1% [Cyclogyl 1%*] 1 drops EACH EYE PRN PRN 04/02/19 Levothyroxine [Synthroid*] 88 mcg PO [id number] 04/02/19 Diet: ADA Activity: Ad jaye
[2019-05-01] MEDS ORDERED: FLUTICASONE 50MCG NASAL SPRAY NAS SCH (21:00)
[2019-05-01 22:59] VITALS: BP 120/91; TEMP 98.6
[2019-05-02] MEDS ORDERED: FLUTICASONE 50MCG NASAL SPRAY NAS SCH (09:00)
[2019-05-02] MEDS ORDERED: INSULIN GLARGINE 100 UNITS/ML SQ ONE (11:32)
== END 2019-05-01 23:00 | disposition home or self-care (01) | DRG 639 ==
LOC: ER 09:03 → 3RD-ICU 20:10
PROVIDERS: ADMIT Internal Medicine; ATTEND Internal Medicine
DX: E10.10 Type 1 diabetes mellitus with ketoacidosis without coma (principal); E03.9 Hypothyroidism, unspecified; I25.10 Atherosclerotic heart disease of native coronary artery without angina pectoris; Z91.14 Patient's other noncompliance with medication regimen; J44.9 Chronic obstructive pulmonary disease, unspecified; I25.2 Old myocardial infarction; Z95.5 Presence of coronary angioplasty implant and graft; Z89.511 Acquired absence of right leg below knee; Z89.612 Acquired absence of left leg above knee
CPT/HCPCS: 36415; 71045; 80048; 80076; 81003; 81015; 82010; 82805; 82962; 83605; 83735; 83880; 84100; 84145; 84484; 85025; 85610; 87040; 93005; 96361; 96365; 96366; 99285; J1644; J2405; J3475; J7030

== ENCOUNTER 2019-05-22 09:41 | Inpatient (IN) | payer OTHER ==
[2019-05-22] MEDS ORDERED: ONDANSETRON 4 MG/2 ML VIAL ONE (09:56)
[2019-05-22 10:51] LABS: Arterial Blood Carboxyhemoglob 0.4 % (0-1.5)
[2019-05-22] MEDS ORDERED: FAMOTIDINE 20 MG/2 ML VIAL IV ONE (11:17)
[2019-05-22] MEDS ORDERED: LEVALBUTEROL 1.25 MG/3 ML NEB ONE (11:17)
[2019-05-22 11:38] LABS: Absolute Lymphocytes (CBC) 1.2 K/uL (0.7-4.9); Basophils % 1.1 % (0-1.3); Hematocrit 42.2 % (39.6-49.0); Lymphocytes % 15.9 % (15.3-44.8); MPV 9.5 fL (7.6-11.3); RBC Red Blood Cell Count 4.71 M/uL (4.33-5.43)
[2019-05-22 11:40] LABS: Protime INR 0.95
[2019-05-22] MEDS ORDERED: METHYLPREDNISOLONE 125 MG INJ ONE (11:40)
[2019-05-22] MEDS ORDERED: PROMETHAZINE 25 MG/ML VIAL ONE (11:47)
[2019-05-22 11:55] LABS: ALT/SGPT 66 U/L (12-78); AST/SGOT 79 U/L (15-37); Albumin 3.4 g/dL (3.4-5.0); Alkaline Phosphatase 113 U/L (45-117); BUN Blood Urea Nitrogen 19 mg/dL (7-18); Bicarbonate 26 mmol/L (21-32); Bilirubin Direct 0.1 mg/dL (0-0.2); Bilirubin Total 0.4 mg/dL (0.2-1.0); Glucose Level 134 mg/dL (74-106); Magnesium 1.7 mg/dL (1.8-2.4); NT PRO-BNP 328 pg/mL (<125); Potassium 3.5 mmol/L (3.5-5.1); Protein, Total 9.2 g/dL (6.4-8.2); Sodium Level 140 mmol/L (136-145); Troponin (Emerg Dept Use Only) < 0.02 ng/mL (0.0-0.045)
--- NOTE | 2019-05-22 13:45 | ER ---
Nurse's Notes [facility] Name: Edson Spence Age: 64 yrs Sex: Male : 1955 Arrival Date: 05/22/2019 Time: 09:53 Bed 6 Private MD: Diagnosis: Pneumonia;Vomiting;Altered mental status, unspecified Presentation: 05/22 10:05 Presenting complaint: EMS states: CALLED OUT FOR HYPOGLYCEMIA, BGL 33 INITIAL, NOW UP bp TO 77. Transition of care: patient was not received from another setting of care. Onset of symptoms is unknown. Risk Assessment: Do you want to hurt yourself or someone else? Unable to obtain. Initial Sepsis Screen: Does the patient meet any 2 criteria? Altered Mental Status. HR > 90 bpm. Yes Does the patient have a suspected source of infection? Yes: Productive cough/pneumonia. Care prior to arrival: Glucose check: 77. 10:05 Method Of Arrival: EMS: [facility] bp 10:05 Acuity: CHRISTOPHER 2 bp Triage Assessment: 10:07 General: Appears distressed, ill, unkempt, Behavior is inappropriate for age, bp uncooperative. Pain: Unable to use pain scale. Patient is disoriented. Does not appear to understand pain scale. EENT: No deficits noted. Neuro: Level of Consciousness is awake, confused, Oriented to none. Cardiovascular: Rhythm is sinus tachycardia. Respiratory: Breath sounds are coarse bilaterally. GI: Pt is actively vomiting undigested food. : No signs and/or symptoms were reported regarding the genitourinary system. Derm: No deficits noted. Musculoskeletal: No deficits noted. Historical: - Allergies: 10:07 NKA; bp - Home Meds: 10:07 aspirin 81 mg Oral TbEC 1 tab once daily [Active]; BRILINTA 90 mg Oral tab 1 tab 2 bp times per day [Active]; insulin [Active]; levothyroxine 100 mcg tab 1 tab once daily [Active]; metoprolol tartrate 25 mg Oral tab 1 tab 2 times per day [Active]; simvastatin 40 mg Oral tab 1 tab nightly [Active]; - PMHx: 10:07 COPD; Diabetes - IDDM; High Cholesterol; Hypertension; Hypothyroidism; Myocardial bp infarction; - Immunization history:: Adult Immunizations up to date. - Social history:: Smoking status: unknown. - Ebola Screening: : No symptoms or risks identified at this time. Screenin:10 Abuse screen: Denies threats or abuse. Denies injuries from another. Nutritional bp screening: No deficits noted. Tuberculosis screening: No symptoms or risk factors identified. Fall Risk None identified. Assessment: 10:09 General: SEE TRIAGE NOTE. bp 10:27 Reassessment: PT BGL 108, UNCOOPERATIVE WITH HEALTH CARE ACTIVITIES. PROVIDER AWARE. bp 10:55 Reassessment: PHLEBOTOMY AT B/S. bp 11:33 Reassessment: BLOOD SPECIMEN OBTAINED BY PHLEBOTOMY. PT REMAINS NONVERBAL. bp Vital Signs: 10:07 BP 186 / 84; Pulse 116; Resp 29; Temp 97; Pulse Ox 90% on 3 lpm NC; bp 10:29 BP 167 / 79; Pulse 119; Resp 29; Pulse Ox 91% on 3 lpm NC; bp 11:31 BP 124 / 78; Pulse 122; Resp 28; Pulse Ox 97% ; bp ED Course: 09:53 Patient arrived in ED. aa5 10:05 German Echeverria, NEGRA is Primary Nurse. bp 10:06 Triage completed. bp 10:07 Arm band placed on right wrist. bp 10:09 Rudy Morin PA is PHCP. jmm 10:09 Willy Jones MD is Attending Physician. jmm 10:10 Patient has correct armband on for positive identification. Placed in gown. Bed in low bp position. Call light in reach. Side rails up X2. 10:20 Inserted saline lock: 24 gauge in left forearm, using aseptic technique. bp 10:28 Inserted saline lock: 22 gauge in left wrist, using aseptic technique. bp 10:41 CT Head Brain wo Cont In Process Unspecified. EDMS 12:23 XRAY Chest (1 view) In Process Unspecified. EDMS 13:44 Sohan Forbes MD is Hospitalizing Provider. jmm 14:56 No provider procedures requiring assistance completed. Patient admitted, IV remains in bp place. Administered Medications: 11:00 Drug: Zofran 4 mg Route: IVP; Site: left forearm; bp 11:52 Follow up: Response: No adverse reaction bp 11:00 Drug: Pepcid 20 mg Route: IVP; Site: left forearm; bp 11:52 Follow up: Response: No adverse reaction bp 11:00 Drug: Xopenex (3) 1.25 mg Route: Inhalation; bp 11:35 Drug: SOLU-Medrol 125 mg Route: IVP; Site: left forearm; bp 11:53 Follow up: Response: No adverse reaction bp 11:52 Drug: Promethazine 12.5 mg Route: IVP; Site: left forearm; bp 12:40 Drug: NS 0.9% 1000 ml Route: IV; Rate: 1 bolus; Site: left forearm; bp 14:00 Drug: Rocephin - (cefTRIAXone) 1 grams Route: IVPB; Infused Over: 30 mins; Site: left bp forearm; Outcome: 13:44 Decision to Hospitalize by Provider. avelino 15:40 Admitted to Med/surg accompanied by nurse, via stretcher, room 207, with chart, Report bp called to BELEM OMER 15:42 Condition: stable bp 15:42 Instructed on the need for admit. 16:17 Patient left the ED. bp Signatures: Dispatcher [employer] EDMS Rudy Morin PA PA jmm Calderon, Audri, RN RN aa5 German Echeverria RN RN bp
--- NOTE | 2019-05-22 13:45 | EDPHYS ---
Physician Documentation [facility] Name: Edson Spence Age: 64 yrs Sex: Male : 1955 Arrival Date: 05/22/2019 Time: 09:53 Bed 6 Private MD: ED Physician Willy Jones HPI: 05/22 10:30 This 64 yrs old Male presents to ER via EMS with complaints of low blood jmm glucose. 10:30 Onset: The symptoms/episode began/occurred today. Associated signs and symptoms:. jmm Current symptoms: In the emergency department the patient's symptoms have improved. This is a 64 year old male with a history of COPD, DM, HTN, Hypothyroidism, that presents to the ED with a low BGL this morning of 33. Patient had one episode of vomiting in the ED. . Historical: - Allergies: 10:07 NKA; bp - Home Meds: 10:07 aspirin 81 mg Oral TbEC 1 tab once daily [Active]; BRILINTA 90 mg Oral tab 1 tab 2 bp times per day [Active]; insulin [Active]; levothyroxine 100 mcg tab 1 tab once daily [Active]; metoprolol tartrate 25 mg Oral tab 1 tab 2 times per day [Active]; simvastatin 40 mg Oral tab 1 tab nightly [Active]; - PMHx: 10:07 COPD; Diabetes - IDDM; High Cholesterol; Hypertension; Hypothyroidism; Myocardial bp infarction; - Immunization history:: Adult Immunizations up to date. - Social history:: Smoking status: unknown. - Ebola Screening: : No symptoms or risks identified at this time. ROS: 10:30 Constitutional: Negative for fever, chills, and weight loss, Cardiovascular: Negative jmm for chest pain, palpitations, and edema, Respiratory: Negative for shortness of breath, cough, wheezing, and pleuritic chest pain. 10:30 Abdomen/GI: Positive for vomiting. 10:30 All other systems are negative. Exam: 10:30 Head/Face: atraumatic. Eyes: EOMI, no conjunctival erythema appreciated ENT: Moist jmm Mucus Membranes Neck: Trachea midline, Supple Chest/axilla: Normal chest wall appearance and motion. Cardiovascular: Regular rate and rhythm. No edema appreciated Respiratory: Normal respirations, no respiratory distress appreciated Abdomen/GI: Non distended, soft Skin: General appearance color normal MS/ Extremity: Moves all extremities, no obvious deformities appreciated, no edema noted to the lower extremities 10:30 Constitutional: The patient appears in no acute distress, alert, awake. Vital Signs: 10:07 BP 186 / 84; Pulse 116; Resp 29; Temp 97; Pulse Ox 90% on 3 lpm NC; bp 10:29 BP 167 / 79; Pulse 119; Resp 29; Pulse Ox 91% on 3 lpm NC; bp 11:31 BP 124 / 78; Pulse 122; Resp 28; Pulse Ox 97% ; bp MDM: 10:11 Patient medically screened. [facility] 13:43 Data reviewed: vital signs, nurses notes. Counseling: I had a detailed discussion with [facility] the patient and/or guardian regarding:. ED course: I discussed the patient with Dr. Forbes whom accepted admission. . 05/22 10:10 Order name: Basic Metabolic Panel; Complete Time: 12:17 [facility] 05/22 10:10 Order name: CBC with Diff; Complete Time: 11:47 [facility] 05/22 10:10 Order name: LFT's; Complete Time: 12:17 [facility] 05/22 10:10 Order name: Magnesium; Complete Time: 12:17 [facility] 05/22 10:10 Order name: NT PRO-BNP; Complete Time: 12:17 [facility] 05/22 10:10 Order name: PT-INR; Complete Time: 11:47 [facility] 05/22 10:10 Order name: Troponin (emerg Dept Use Only); Complete Time: 12:17 [facility] 05/22 10:10 Order name: XRAY Chest (1 view) [facility] 05/22 10:20 Order name: CT Head Brain wo Cont [facility] 05/22 10:21 Order name: Lactate; Complete Time: 12:17 [facility] 05/22 10:21 Order name: Procalcitonin; Complete Time: 12:17 [facility] 05/22 10:21 Order name: Blood Culture Adult (2) [facility] 05/22 10:21 Order name: ABG; Complete Time: 11:14 [facility] 05/22 10:10 Order name: EKG; Complete Time: 10:11 [facility] 05/22 10:10 Order name: Cardiac monitoring; Complete Time: 10:11 [facility] 05/22 10:10 Order name: EKG - Nurse/Tech; Complete Time: 10:29 [facility] 05/22 10:10 Order name: IV Saline Lock; Complete Time: [facility] 05/22 10:10 Order name: O2 Per Protocol; Complete Time: [facility] 05/22 10:10 Order name: O2 Sat Monitoring; Complete Time: : [facility] Administered Medications: 11:00 Drug: Zofran 4 mg Route: IVP; Site: left forearm; bp 11:52 Follow up: Response: No adverse reaction bp 11:00 Drug: Pepcid 20 mg Route: IVP; Site: left forearm; bp 11:52 Follow up: Response: No adverse reaction bp 11:00 Drug: Xopenex (3) 1.25 mg Route: Inhalation; bp 11:35 Drug: SOLU-Medrol 125 mg Route: IVP; Site: left forearm; bp 11:53 Follow up: Response: No adverse reaction bp 11:52 Drug: Promethazine 12.5 mg Route: IVP; Site: left forearm; bp 12:40 Drug: NS 0.9% 1000 ml Route: IV; Rate: 1 bolus; Site: left forearm; bp 14:00 Drug: Rocephin - (cefTRIAXone) 1 grams Route: IVPB; Infused Over: 30 mins; Site: left bp forearm; Disposition: 05/22/19 13:44 Hospitalization ordered by Sohan Forbes for Observation. Preliminary diagnosis are Pneumonia, Vomiting, Altered mental status, unspecified. - Bed requested for Telemetry/MedSurg (observation). - Status is Observation. bp - Condition is Stable. - Problem is new. - Symptoms are unchanged. UTI on Admission? No Addendum: 05/24/2019 07:53 Co-signature as Attending Physician, Willy Jones MD I agree with the assessment and c [place] plan of care. Signatures: Dispatcher [employer] Willy Locke MD MD cha Mickail, Joel, PA PA Stefanie Deleon, RN RN aa5 Vaishnavi Chapman 3 German Echeverria, RN RN bp Corrections: (The following items were deleted from the chart) 05/22 14:43 13:44 Hospitalization Ordered by Sohan Forbes MD for Observation. Preliminary diagnosis aa5 is Pneumonia; Vomiting; Altered mental status, unspecified. Bed requested for Telemetry/MedSurg (observation). Status is Observation. Condition is Stable. Problem is new. Symptoms are unchanged. UTI on Admission? No. jmm 15:00 14:43 05/22/2019 13:44 Hospitalization Ordered by Sohan Forbes MD for Observation. aa5 Preliminary diagnosis is Pneumonia; Vomiting; Altered mental status, unspecified. Bed requested for Telemetry/MedSurg (observation). Status is Observation. Condition is Stable. Problem is new. Symptoms are unchanged. UTI on Admission? No. aa5 15:16 15:00 05/22/2019 13:44 Hospitalization Ordered by Sohan Forbes MD for Observation. dh3 Preliminary diagnosis is Pneumonia; Vomiting; Altered mental status, unspecified. Bed requested for Telemetry/MedSurg (observation). Status is Observation. Condition is Stable. Problem is new. Symptoms are unchanged. UTI on Admission? No. aa5 16:17 15:16 05/22/2019 13:44 Hospitalization Ordered by Sohan Forbes MD for Observation. bp Preliminary diagnosis is Pneumonia; Vomiting; Altered mental status, unspecified. Bed requested for Telemetry/MedSurg (observation). Status is Observation. Condition is Stable. Problem is new. Symptoms are unchanged. UTI on Admission? No. dh3
[2019-05-22] MEDS ORDERED: NA CHLORIDE 0.9% 1,000 ML ONE (13:56)
[2019-05-22] MEDS ORDERED: CEFTRIAXONE/SWI 1gm 1 GM/10 ML SYR ONE (13:57)
[2019-05-22] MEDS ORDERED: D5 0.45 NS 1,000 ML IV SCH (17:30)
[2019-05-22] MEDS ORDERED: ACETAMINOPHEN 500 MG TAB PO PRN (17:30)
[2019-05-22] MEDS ORDERED: ONDANSETRON 4 MG/2 ML VIAL IV PRN (17:30)
--- NOTE | 2019-05-22 17:49 | P.HP ---
Certification for Inpatient Patient admitted to: Inpatient With expected LOS: >2 Midnights Practitioner: I am a practitioner with admitting privileges, knowledge of patient current condition, hospital course, and medical plan of care. Services: Services provided to patient in accordance with Admission requirements found in Title 42 Section 412.3 of the Code of Federal Regulations Patient History Date of Service: 05/22/19 Reason for admission: Altered mental status hypoglycemia History of Present Illness: Patient is a 64-year-old male with past medical history of COPD diabetes with bilateral BKA who was found unresponsive at home with a glucose of 33. Patient was brought into the hospital for further evaluation. His symptoms are constant moderate progressive. Patient was given the D50 in the ER and blood glucose improved to 134. Patient response to stimuli however not at his baseline. Workup including head CT scan showed occipital hematoma however no signs of sepsis. Allergies No Known Drug Allergies Allergy (Verified 04/30/19 23:11) Unknown No Known Allergies Allergy (Uncoded 04/30/19 23:11) Unknown Home medications list reviewed: Yes Home Medications: Aspirin 81 mg PO DAILY 06/01/16 Insulin Aspart [Novolog*] See Protocol SQ AC 06/01/16 Simvastatin [Zocor*] 40 mg PO BEDTIME 06/01/16 Albuterol Inhaler [Ventolin Inhaler*] 2 puff IH Q6H PRN 06/06/16 Brinzolamide/Brimonidine Tart [Simbrinza 1%-0.2% Eye Drops] 1 drop OP BID Budesonide/Formoterol Fumarate [Symbicort 160-4.5 Mcg Inhaler] 2 puff IH BID Insulin Glargine,Hum.rec.anlog [Lantus] 5 unit SQ DAILY WITH BREAKFAST 01/29/17 Cyclopentolate 1% [Cyclogyl 1%*] 1 drops EACH EYE PRN PRN 04/02/19 Levothyroxine [Synthroid*] 88 mcg PO [id number] 04/02/19 - Past Medical/Surgical History Diabetic: Yes -: Hyperlipidemia -: IDDM -: Hypothyroidism -: COPD -: Left wrist fx 01/2014 -: Arthritis -: PAD -: DM -: OR with 4 stents 2014 -: Cataract sx -: Hemmorhoidectomy -: L AKA 2004 -: Rt BKA - Family History Mother -: Heart disease, Diabetes - Social History Smoking Status: Unknown if ever smoked Alcohol use: No CD- Drugs: No Caffeine use: Yes Place of Residence: Home Review of Systems 10-point ROS is otherwise unremarkable Physical Examination - Vital Signs Temperature: 98.8 F Blood Pressure: 148/51 Pulse: 109 Respirations: 20 Pulse Ox (%): 98 - Physical Exam General: In no apparent distress, Unresponsive (Responds to stimuli) HEENT: Atraumatic, PERRLA, Other (Dry mucous membranes), EOMI, Sclerae nonicteric Neck: Supple, JVD not distended Respiratory: Clear to auscultation bilaterally, Normal air movement Cardiovascular: Normal pulses (Radial), Regular rate/rhythm, Normal S1 S2 Gastrointestinal: Normal bowel sounds, Soft and benign, Non-distended, No tenderness Musculoskeletal: No tenderness, Other (Bilateral lower extremity BKA) Integumentary: No rashes Neurological: Normal tone, Other (Patient unable to cooperate with neuro exam due to his medical condition. Does open his eyes and mumbles words when stimulated. will Catch arm before dropping) - Studies Laboratory Data (last 24 hrs) 05/22/19 11:15: PT 11.2, INR 0.95 05/22/19 11:15: WBC 7.7, Hgb 14.2, Hct 42.2, Plt Count 251 05/22/19 11:15: Sodium 140, Potassium 3.5, BUN 19 H, Creatinine 0.93, Glucose 134 H, Magnesium 1.7 L, Total Bilirubin 0.4, AST 79 H, ALT 66, Alkaline Phosphatase 113 Assessment and Plan - Plan 1. Acute metabolic encephalopathy. Likely due to hypoglycemia. ABG initially did not show any acidosis. Head CT scan negative except for occipital hematoma no brain bleed 2. Refractory hypoglycemia will give another amp of D50. Start on D5 half NS monitor blood glucose levels. Repeat ABG 3. Occipital hematoma. Likely from fall. 4. Diabetes mellitus type 2 with hypoglycemia. Hold oral hypoglycemics monitor blood glucose levels 5. COPD chronic bronchitis. Will continue nebulizer treatments as needed 6. Bilateral BKA 7. Hypothyroidism.Check TSH resume home medications 8. Hyperlipidemia mixed statin No chemical anticoagulation for DVT prophylaxis due to hematoma Discharge Plan: Home Plan to discharge in: 48 Hours - Advance Directives Does patient have a Living Will: Yes Does patient have a Durable POA for Healthcare: Yes - Code Status/Comfort Care Code Status Assessed: Yes
[2019-05-22] MEDS ORDERED: D5 0.45 NS 1,000 ML IV ONE (17:56)
[2019-05-22] MEDS ORDERED: AZITHROMYCIN IV 500 MG in NA CHLORIDE 0.9% 250 ML IVPB SCH (18:00)
[2019-05-22 18:49] LABS: Arterial Blood Carboxyhemoglob 0.9 % (0-1.5); Blood Gas Oxyhemoglobin 93.2 % (94-97); Blood O2 Saturation 94.7 % (92-98.5)
--- NOTE | 2019-05-22 23:05 | RAD REPORT ---
EXAM DESCRIPTION: Russel Single View05/22/2019 7:08 pm CLINICAL HISTORY: Chest pain COMPARISON: April 2019 FINDINGS: Moderate patchy bibasilar lung opacities The heart is normal size IMPRESSION: Moderate patchy bilateral lung opacities consistent with aspiration pneumonia
[2019-05-23] MEDS ORDERED: PIPER/TAZO/NS 3.375gm 3.375 GM/100 ML BAG ONE (00:35)
[2019-05-23] MEDS: PIPER/TAZO/NS 3.375gm 3.375 GM/100 ML BAG IVPB SCH ×3 (00:46→17:19)
--- NOTE | 2019-05-23 01:06 | P.PN ---
Subjective Date of Service: 05/23/19 Primary Care Provider: [facility] Chief Complaint: Altered mental status hypoglycemia Subjective: Other (Patient more alert. Daughter at bedside.) Physical Examination - Vital Signs Temperature: 99.1 F Blood Pressure: 138/64 Pulse: 102 Respirations: 18 Pulse Ox (%): 96 - Physical Exam General: Alert, In no apparent distress, Cooperative HEENT: Atraumatic Neck: Supple Respiratory: Crackles/rales (Crackles to the bases bilateral) Cardiovascular: Normal pulses, Regular rate/rhythm Gastrointestinal: Normal bowel sounds, Soft and benign, Non-distended Musculoskeletal: No erythema, No tenderness, No warmth Integumentary: No tenderness/swelling, No erythema, No warmth, No cyanosis Neurological: Normal speech, Normal strength at 5/5 x4 extr, Normal tone, Normal affect - Studies Laboratory Data (last 24 hrs) 05/22/19 11:15: PT 11.2, INR 0.95 05/22/19 11:15: WBC 7.7, Hgb 14.2, Hct 42.2, Plt Count 251 05/22/19 11:15: Sodium 140, Potassium 3.5, BUN 19 H, Creatinine 0.93, Glucose 134 H, Magnesium 1.7 L, Total Bilirubin 0.4, AST 79 H, ALT 66, Alkaline Phosphatase 113 Medications List Reviewed: Yes Assessment & Plan Discharge Plan: Home Plan to discharge in: Greater than 2 days Physician Review Additional Text: Impression: Acute metabolic encephalopathy related to hypoglycemia and bilateral pneumonia likely aspiration Diabetes mellitus type 2 insulin-dependent with hypoglycemia Hypertension Hypothyroidism GERD Hyperlipidemia Prior lower extremity amputations COPD Plan: Acute metabolic encephalopathy related to hypoglycemia and bilateral pneumonia likely aspiration: Overall mentation improved. Blood sugar stable. CT head showed no intracranial abnormality. Chest x-ray showed bilateral pneumonia likely aspiration. Both reviewed with radiology. Medication adjusted. Discontinue Zithromax/Rocephin. Change to IV Zosyn. Recheck chest x-ray tomorrow. Maintain sats above 90%. Aspiration and fall precaution in place. Will provide DVT prophylaxis-Lovenox. Continue IV fluids. Further adjustment in his diabetic medication will be required prior to discharge. Once more alert physical therapy may be consulted. Case discussed at length with daughter. Daughter agrees with current plan of care. Daytime hospitalist will continue his care. Likely discharge in the next 3-5 days pending clinical improvement. Diabetes mellitus type 2 insulin-dependent with hypoglycemia: Will check A1c. Continue Accu-Cheks and sliding scale. Patient currently on D5 IV fluids. Patient may not require basal insulin at discharge. Discussed in detail with daughter about the need for strict control of his medications. Patient currently giving his own medications. Patient will likely require help. Social work may help in this process. Hypertension: Will need to review and restart home medication. Provide medication as needed. Hypothyroidism: Continue home medication. Will check tsh. GERD: Will start Protonix. Hyperlipidemia: Continue with home medication. Prior lower extremity amputations: Overall stable. COPD: Continue COPD medication. Maintain sats above 90%. Will provide incentive spirometer once more alert. Time Spent Managing Pts Care (In Minutes): 55
[2019-05-23] MEDS ORDERED: HYDRALAZINE HCL 20 MG/ML VIAL IV PRN (01:07)
[2019-05-23] MEDS: NACHLORIDE 0.45% 1,000 ML IV SCH ×3 (04:14→17:19)
--- NOTE | 2019-05-23 04:41 | EKG ---
Test Date: 2019-05-22 Test Time: 10:24:51 Clay Puddler: LISSA MEASUREMENT RESULTS: Intervals: Rate: 119 DE: 136 QRSD: 100 QT: 350 QTc: 492 [place]: P: 84 DE: 136 QRS: 211 T: 67 INTERPRETIVE STATEMENTS: Sinus tachycardia Right atrial enlargement Right superior axis deviation Pulmonary disease pattern Septal infarct, age undetermined Cannot rule out Inferior infarct, age undetermined Abnormal ECG Compared to ECG 04/30/2019 09:54:16 Myocardial infarct finding now present Electronically Signed On 05-23-19 04:40:50 CDT by Zachary Ramirez
[2019-05-23] MEDS: LEVOTHYROXINE SOD 0.088 MG TAB PO SCH (06:00)
[2019-05-23 06:08] LABS: Absolute Lymphocytes (CBC) 0.8 K/uL (0.7-4.9); Basophils % 0.2 % (0-1.3); Hematocrit 35.5 % (39.6-49.0); Lymphocytes % 8.4 % (15.3-44.8); RBC Red Blood Cell Count 3.98 M/uL (4.33-5.43)
[2019-05-23 06:24] LABS: Albumin 2.5 g/dL (3.4-5.0); Bilirubin Total 0.5 mg/dL (0.2-1.0); Magnesium 1.7 mg/dL (1.8-2.4); Potassium 3.9 mmol/L (3.5-5.1); Protein, Total 7.5 g/dL (6.4-8.2); Thyroid Stimulating Hormone 0.312 uIU/mL (0.360-3.740)
[2019-05-23] MEDS: PANTOPRAZOLE 40MG TABLET PO SCH (06:30)
[2019-05-23] MEDS ORDERED: MAGNESIUM SULFATE 1 gm IVPB 1 GM/100 ML BAG IV ONE (06:33)
[2019-05-23] MEDS ORDERED: POTASSIUM CL SA 10 MEQ TAB PO ONE (06:34)
[2019-05-23] MEDS: ARFORMOTEROL TARTRATE 15 MCG/2 ML VIAL.NEB NEB SCH ×2 (07:45→20:55)
[2019-05-23] MEDS: ALBUTEROL 2.5 MG/3 ML NEB SOL NEB PRN ×2 (07:45→13:20)
[2019-05-23] MEDS: IPRATROPIUM BROM 0.5MG/2.5ML NEB PRN ×2 (07:45→13:20)
--- NOTE | 2019-05-23 08:40 | RAD REPORT ---
EXAM DESCRIPTION: Russel Single View05/23/2019 6:46 am CLINICAL HISTORY: Chest pain COMPARISON: May 22 FINDINGS: Mild improvement in the bibasilar lung opacities No other change IMPRESSION: Mild improvement in the bibasilar aspiration pneumonitis
[2019-05-23] MEDS ORDERED: ENOXAPARIN 40 MG/0.4 ML SQ SCH (09:00)
[2019-05-23] MEDS ORDERED: CEFTRIAXONE/SWI 1gm 1 GM/10 ML SYR IVP SCH (09:00)
[2019-05-23] MEDS: ASPIRIN 81 MG CHEWABLE TABLET PO SCH (10:18)
[2019-05-23 11:52] LABS: Blood Morphology Comment NOT SEEN (NOT SEEN); Platelet Estimate ADEQ; Urine White Blood Cell Casts OK
[2019-05-23] MEDS ORDERED: D50W 25 GM/50 ML SYRINGE IV PRN (12:39)
[2019-05-23] MEDS ORDERED: GLUCAGON 1 MG/VIAL IM PRN (12:39)
[2019-05-23] MEDS ORDERED: INSULIN -REGULAR HUMAN 50 UNIT/0.5 ML ML SQ ONE (12:41)
--- NOTE | 2019-05-23 13:56 | P.PN ---
Date of Service: 05/23/19 Patient seen and examined. Chart reviewed and case discussed w RN. Patient much more alert. Family at bedside. Treatment plan explained and all questions answered. Blood sugars now in 300;s. start on sliding scale. avoid long acting insulin due to refractory hypoglycemia yesterday.
[2019-05-23 15:55] VITALS: BMI 18.3
[2019-05-23] MEDS ORDERED: INSULIN -REGULAR HUMAN 50 UNIT/0.5 ML ML SQ SCH (16:30)
[2019-05-23] MEDS ORDERED: PNEUMOCOCCAL VACCINE 0.5 ML IMVAC ONE (17:00)
--- NOTE | 2019-05-23 17:15 | RAD REPORT ---
EXAM DESCRIPTION: CT - Head Brain Wo Cont - 05/22/2019 7:08 pm CLINICAL HISTORY: Transient alteration of awareness COMPARISON: CT head January 2017 TECHNIQUE: Axial 5 mm thick images of the head were obtained without IV contrast. All CT scans are performed using dose optimization technique as appropriate and may include automated exposure control or mA/KV adjustment according to patient size. FINDINGS: No intracranial hemorrhage, mass, edema or shift of mid-line structures. No acute cortical based infarction. No cortical edema or sulcal effacement. Relative increase in density along the fal x is similar to comparison. Atrophy and chronic ischemic changes are present matching the comparison. No abnormal extra-axial fluid collections. Ventricles are in proportion to volume loss. Arterial and physiologic calcifications are present. Right mastoid air cells are clear. Left mastoid air cells ar e partially opacified. Paranasal sinus opacification is present. Air-fluid level noted in the right s inus. Sinus disease is less prominent than seen on the prior study. No globe or orbital content abnormality. No acute bony findings. Due to prolonged technical difficulties with the PACs varnishing unit tool setter systems, final written report was delayed. Preliminary verbal report was provided at the time of the study. IMPRESSION: Atrophy and chronic ischemic changes are present with no acute intracranial finding. Int racranial findings match the comparison. Mucosal thickening in the paranasal sinuses with right maxillary sinus air-fluid level. Partial opaci fication of the left mastoid air cells.
[2019-05-23] MEDS: INSULIN -REGULAR HUMAN 50 UNIT/0.5 ML ML SQ SCH (17:20)
[2019-05-23] MEDS: ATORVASTATIN 20 MG TAB PO SCH (21:24)
[2019-05-23 21:42] LABS: Urine Appearance CLEAR; Urine Bilirubin NEGATIVE (NEG); Urine Blood NEGATIVE (NEG); Urine Color YELLOW; Urine Glucose 3+ (NEG); Urine Protein NEGATIVE (NEG); Urine Specific Gravity 1.015 (1.005-1.030); Urine Urobilinogen 0.2 mg/dL (0.2-1.0)
[2019-05-23 21:44] LABS: Urine Microscopic Reflex NO UMIC
[2019-05-24] MEDS: INSULIN -REGULAR HUMAN 50 UNIT/0.5 ML ML SQ SCH
[2019-05-24] MEDS: PIPER/TAZO/NS 3.375gm 3.375 GM/100 ML BAG IVPB SCH ×3 (00:31→17:00)
[2019-05-24] MEDS: INSULIN LISPRO 100 UNIT/1 ML SQ SCH ×4 (01:54→17:23)
[2019-05-24] MEDS: PANTOPRAZOLE 40MG TABLET PO SCH (05:55)
[2019-05-24] MEDS: LEVOTHYROXINE SOD 0.088 MG TAB PO SCH (05:55)
[2019-05-24 06:10] LABS: Basophils % 1.3 % (0-1.3); Hematocrit 33.7 % (39.6-49.0); Lymphocytes % 24.6 % (15.3-44.8); MPV 9.8 fL (7.6-11.3); RBC Red Blood Cell Count 3.76 M/uL (4.33-5.43)
[2019-05-24 06:21] LABS: Albumin 2.6 g/dL (3.4-5.0); Bilirubin Total 0.7 mg/dL (0.2-1.0); Magnesium 2.2 mg/dL (1.8-2.4); Potassium 3.9 mmol/L (3.5-5.1); Protein, Total 7.3 g/dL (6.4-8.2)
[2019-05-24] MEDS: ARFORMOTEROL TARTRATE 15 MCG/2 ML VIAL.NEB NEB SCH ×2 (08:26→20:00)
[2019-05-24] MEDS: IPRATROPIUM BROM 0.5MG/2.5ML NEB PRN (08:26)
[2019-05-24] MEDS: ALBUTEROL 2.5 MG/3 ML NEB SOL NEB PRN (08:26)
[2019-05-24] MEDS ORDERED: POTASSIUM 25 MEQ EFFERV TAB PO ONE (09:00)
[2019-05-24] MEDS: ASPIRIN 81 MG CHEWABLE TABLET PO SCH (09:34)
[2019-05-24] MEDS ORDERED: INSULIN LISPRO 100 UNIT/1 ML SQ ONE (12:30)
[2019-05-24] MEDS ORDERED: INSULIN GLARGINE 100 UNITS/ML SQ ONE (12:30)
[2019-05-24] MEDS ORDERED: NA CHLORIDE 0.9% 1,000 ML IV ONE (12:30)
[2019-05-24] MEDS: NACHLORIDE 0.45% 1,000 ML IV SCH (15:15)
--- NOTE | 2019-05-24 18:32 | PN ---
Date of Progress Note: 05/24/2019 Subjective: Patient seen and examined. Chart reviewed and case discussed with RN. No acute events overnight. Patient is doing significantly better. Did refuse regular insulin in the morning and was switched over to Humalog. Patient continues to have uncontrolled blood sugar levels. Medication list reviewed. Physical Examination: Vital Signs: Temperature 97.2, heart rate 85, blood pressure 136/61, respirations 19, O2 of 97% on room air. General: Awake, alert, oriented x3, not in any acute distress. CVS: S1, S2. No murmurs. Regular rate and rhythm. Gastrointestinal: Abdomen is soft, nontender, nondistended. Positive bowel sounds. Extremities: No clubbing, cyanosis, or edema. Musculoskeletal: Patient has bilateral BKA. Neurologic: Nonfocal. Laboratory Data: Sodium 141, potassium 3.9, chloride 109, CO2 of 26, BUN 24, creatinine 1.1, glucose 256. Accu-Chek shows 516. Calcium 8.8. Magnesium 2.2. WBC 8.1, H and H 11.3 and 33.7, platelets 196, neutrophils 62%. Blood cultures, no growth to date. Assessment And Plan: A 64-year-old male with: 1. Acute metabolic encephalopathy secondary to hypoglycemia resolved. Patient now back to baseline. 2. Refractory hyperglycemia, corrected now with hypoglycemia. 3. Bilateral pneumonia, likely aspiration. We will continue with Zosyn. 4. Diabetes mellitus type 2, now with hyperglycemia. We will adjust insulin. Patient refusing to take regular insulin. States that it causes him hypoglycemic episodes despite counseling. Patient has been switched to Humalog. We will add Lantus. 5. Essential hypertension. 6. Hypothyroidism. We will continue Synthroid. 7. Gastroesophageal reflux disease. 8. Hyperlipidemia. Continue home medications. 9. Bilateral lower extremity below knee amputation. 10. Chronic obstructive pulmonary disease, chronic bronchitis, stable. Plan: We will hold discharge. Adjust insulin dose. Likely discharge in the next 24 hours. /LUCY Voice ID: [id number] Report ID: [id number] MTDD
[2019-05-24] MEDS: ATORVASTATIN 20 MG TAB PO SCH (20:39)
[2019-05-25] MEDS: PIPER/TAZO/NS 3.375gm 3.375 GM/100 ML BAG IVPB SCH ×3 (00:23→18:10)
[2019-05-25] MEDS: INSULIN LISPRO 100 UNIT/1 ML SQ SCH ×4 (06:00→17:56)
[2019-05-25 06:13] LABS: Potassium 3.6 mmol/L (3.5-5.1)
[2019-05-25] MEDS ORDERED: POTASSIUM 25 MEQ EFFERV TAB PO ONE (06:34)
[2019-05-25] MEDS: PANTOPRAZOLE 40MG TABLET PO SCH (06:48)
[2019-05-25] MEDS: LEVOTHYROXINE SOD 0.088 MG TAB PO SCH (06:49)
[2019-05-25] MEDS: ARFORMOTEROL TARTRATE 15 MCG/2 ML VIAL.NEB NEB SCH ×2 (08:10→20:00)
[2019-05-25] MEDS: ALBUTEROL 2.5 MG/3 ML NEB SOL NEB PRN (08:15)
[2019-05-25] MEDS: IPRATROPIUM BROM 0.5MG/2.5ML NEB PRN (08:15)
[2019-05-25] MEDS: ASPIRIN 81 MG CHEWABLE TABLET PO SCH (09:36)
[2019-05-25] MEDS ORDERED: D5 0.45 NS 1,000 ML IV SCH (18:00)
[2019-05-25] MEDS: ATORVASTATIN 20 MG TAB PO SCH (20:11)
--- NOTE | 2019-05-25 20:30 | DS ---
Admitting Diagnoses: 1. Acute metabolic encephalopathy. 2. Refractory hypoglycemia. 3. Occipital hematoma. 4. Diabetes mellitus type 2 with hypoglycemia. 5. Chronic obstructive pulmonary disease, chronic bronchitis. 6. Bilateral below knee amputation. 7. Hypothyroidism. 8. Mixed hyperlipidemia. Discharge Diagnoses: 1. Acute metabolic encephalopathy, likely due to hypoglycemia, resolved, back to baseline. 2. Refractory hypoglycemia, corrected. 3. Bilateral pneumonia, likely aspiration. We will finish off course of antibiotics. 4. Diabetes mellitus type 2, now with hyperglycemia, brittle diabetic with poor control. A1c is 9. 5. Mixed hyperlipidemia. 6. Bilateral lower extremity below knee amputations. 7. Chronic obstructive pulmonary disease, chronic bronchitis, stable. Hospital Course: Patient is a 64-year-old male with past medical history of COPD, diabetes, bilateral BKA, who was unresponsive with a glucose of 33. Patient was brought into the ER for further evaluation. He was started on D5W, his blood glucose levels improved. ABG did not show a severe acidosis. He was responding to painful stimuli. Repeat ABG showed improvement. His blood cultures and sputum cultures did grow out Staph coagulase positive. Patient did have aspiration type pneumonia likely due to his decreased mental status when he was hypoglycemic. Patient's mental status improved with improvement in his blood glucose levels. He does not remember what happened. Patient takes 5 units of Lantus at home along with Novolin for sliding scale. Patient states the sliding scale makes his sugars drop as sometimes he does not eat after taking the sliding scale. Patient then became hyperglycemic despite being taken off D5W with blood sugars in the 500s. He has had history of DKA in the past. Insulin dose was adjusted. He was given Lantus. Patient again had an episode of hypoglycemia with glucose in 20. Medications were adjusted. He will need to follow up with an ground products director at the [place]. His pneumonia improved significantly. Chest x-ray showed significant improvement. Patient's blood sugars were then more stable in the 100s and therefore was cleared for discharge, was sent home in a stable condition. Activities: As tolerated. Medications: As per medication reconciliation list. Followup: Follow up with primary care physician in 2-3 days. Follow up with ground products director [facility] the [facility] in 2 weeks. Return to ER for worsening condition. Diet: Diabetic. Instructions: Fall precautions. Physical Examination: General: Awake, alert, oriented x3. Elderly male, not in any acute distress. CV: S1-S2. No murmurs. Respiratory: Moving air well bilaterally. Abdomen: Soft, nontender, nondistended. Positive bowel sounds. Extremities: Bilateral BKA. Neurologic: Nonfocal. It should be noted that the patient did not have any occipital hematoma, likely error from the verbal report given while the phone lines and fax lines were down. /LUCY Voice ID: [id number] Report ID: [id number] MTDD
[2019-05-26] MEDS: INSULIN LISPRO 100 UNIT/1 ML SQ SCH ×4 (00:24→16:34)
[2019-05-26] MEDS: PIPER/TAZO/NS 3.375gm 3.375 GM/100 ML BAG IVPB SCH ×3 (00:24→16:53)
[2019-05-26] MEDS: PANTOPRAZOLE 40MG TABLET PO SCH (05:21)
[2019-05-26] MEDS: LEVOTHYROXINE SOD 0.088 MG TAB PO SCH (05:21)
[2019-05-26 06:05] LABS: Phosphorus 3.6 mg/dL (2.5-4.9); Potassium 4.1 mmol/L (3.5-5.1)
[2019-05-26] MEDS: ARFORMOTEROL TARTRATE 15 MCG/2 ML VIAL.NEB NEB SCH ×2 (08:06→19:45)
[2019-05-26] MEDS: ASPIRIN 81 MG CHEWABLE TABLET PO SCH (08:23)
[2019-05-26] MEDS: IPRATROPIUM BROM 0.5MG/2.5ML NEB PRN (19:45)
[2019-05-26] MEDS: ATORVASTATIN 20 MG TAB PO SCH (21:09)
[2019-05-27] MEDS: PIPER/TAZO/NS 3.375gm 3.375 GM/100 ML BAG IVPB SCH ×3 (00:22→17:33)
[2019-05-27] MEDS: INSULIN LISPRO 100 UNIT/1 ML SQ SCH ×4 (00:22→17:31)
[2019-05-27] MEDS: PANTOPRAZOLE 40MG TABLET PO SCH (05:55)
[2019-05-27] MEDS: LEVOTHYROXINE SOD 0.088 MG TAB PO SCH (05:56)
[2019-05-27] MEDS: ARFORMOTEROL TARTRATE 15 MCG/2 ML VIAL.NEB NEB SCH ×2 (08:15→20:05)
[2019-05-27] MEDS: ASPIRIN 81 MG CHEWABLE TABLET PO SCH (08:33)
[2019-05-27] MEDS ORDERED: GLUCAGON 1 MG/VIAL IM PRN (10:01)
[2019-05-27] MEDS ORDERED: D50W 25 GM/50 ML SYRINGE IV PRN (10:01)
[2019-05-27] MEDS ORDERED: INSULIN GLARGINE 100 UNITS/ML SQ ONE (10:35)
--- NOTE | 2019-05-27 18:25 | P.PN ---
Subjective Date of Service: 05/26/19 Primary Care Provider: [facility] Chief Complaint: Altered mental status hypoglycemia Subjective: No new changes Patient blood sugar level today within acceptable range. Longer-acting insulin was discontinued. Physical Examination - Vital Signs Temperature: 98.4 F Blood Pressure: 129/56 Pulse: 84 Respirations: 20 Pulse Ox (%): 95 - Physical Exam General: Alert, In no apparent distress, Oriented x3 HEENT: Mucous membr. moist/pink Neck: Supple, JVD not distended Respiratory: Clear to auscultation bilaterally, Normal air movement Cardiovascular: No edema, Normal pulses, Regular rate/rhythm, Normal S1 S2 Capillary refill: <2 Seconds Gastrointestinal: Normal bowel sounds, Soft and benign, No tenderness Musculoskeletal: Other (Bilateral AKA) Integumentary: No rashes Neurological: Normal strength at 5/5 x4 extr, Cranial nerves 3-12 intact - Studies Microbiology Data (last 24 hrs): 05/22/19 11:15 Blood - Blood Aerobic Blood Culture - Final No growth in 5 days. 05/22/19 11:15 Blood - Blood Anaerobic Blood Culture - Final 05/22/19 11:05 Blood - Blood Aerobic Blood Culture - Final No growth in 5 days. 05/22/19 11:05 Blood - Blood Anaerobic Blood Culture - Final Medications List Reviewed: Yes Assessment And Plan - Current Problems (Diagnosis) (1) Aspiration pneumonia Current Visit: Yes Status: Acute (2) COPD with acute exacerbation Current Visit: No Status: Acute (3) Diabetes mellitus Onset Date: 01/30/17 Current Visit: No Status: Chronic Qualifiers: Diabetes mellitus type: type 1 Diabetes mellitus complication status: with circulatory complication Diabetes mellitus complication detail: with other circulatory complications Qualified Code(s): E10.59 - Type 1 diabetes mellitus with other circulatory complications - Plan Acute metabolic encephalopathy related to hypoglycemia * Hypoglycemia resolved * Altered mental status resolved. Bilateral pneumonia likely aspiration: * MRSA positive. * Overall clinically improved. 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 * Intermittent hypoglycemia with long-acting insulin. * Monitor blood sugar with insulin sliding scale. * Hemoglobin A1c is 8. * Diabetic teaching Hypertension: * He is currently normotensive without antihypertensives Hypothyroidism: * Continue home medication. GERD: * Protonix. Hyperlipidemia: * Continue with home medication. COPD: Continue COPD medication. Maintain sats above 90%. 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
--- NOTE | 2019-05-27 18:34 | P.PN ---
Subjective Date of Service: 05/27/19 Primary Care Provider: [facility] Chief Complaint: Altered mental status hypoglycemia Patient noted to have elevated blood sugar today. He has good oral intake. He denies shortness of breath. He has been afebrile. Physical Examination - Vital Signs Temperature: 98.4 F Blood Pressure: 129/56 Pulse: 84 Respirations: 20 Pulse Ox (%): 95 - Physical Exam General: Alert, In no apparent distress, Oriented x3 HEENT: Normocephalic, Mucous membr. moist/pink Neck: Supple, JVD not distended Respiratory: Clear to auscultation bilaterally, Normal air movement Cardiovascular: No edema, Regular rate/rhythm, Normal S1 S2 Capillary refill: <2 Seconds Gastrointestinal: Normal bowel sounds, Soft and benign, Non-distended, No tenderness Integumentary: No rashes - Studies Microbiology Data (last 24 hrs): 05/22/19 11:15 Blood - Blood Aerobic Blood Culture - Final No growth in 5 days. 05/22/19 11:15 Blood - Blood Anaerobic Blood Culture - Final 05/22/19 11:05 Blood - Blood Aerobic Blood Culture - Final No growth in 5 days. 05/22/19 11:05 Blood - Blood Anaerobic Blood Culture - Final Medications List Reviewed: Yes Assessment And Plan - Current Problems (Diagnosis) (1) Aspiration pneumonia Current Visit: Yes Status: Acute (2) Diabetes mellitus Onset Date: 01/30/17 Current Visit: No Status: Chronic Qualifiers: Diabetes mellitus type: type 1 Diabetes mellitus complication status: with circulatory complication Diabetes mellitus complication detail: with other circulatory complications Qualified Code(s): E10.59 - Type 1 diabetes mellitus with other circulatory complications - Plan Acute metabolic encephalopathy related to hypoglycemia * Hypoglycemia resolved * Altered mental status resolved. Bilateral pneumonia likely aspiration: * MRSA positive. * Overall clinically improved. 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 * Intermittent hypoglycemia with long-acting insulin. * Patient now with severe hyperglycemia today. * Restarted Lantus insulin at 5 units and then titrate. * Monitor blood sugar with insulin sliding scale. * Diabetic teaching Hypertension: * He is currently normotensive without antihypertensives Hypothyroidism: * Continue home medication. GERD: * Protonix. Hyperlipidemia: * Continue with home medication. COPD: Continue COPD medication. Maintain sats above 90%.
[2019-05-27] MEDS: ATORVASTATIN 20 MG TAB PO SCH (22:12)
[2019-05-28] MEDS ORDERED: NA CHLORIDE 0.9% 250 ML ONE (00:05)
[2019-05-28] MEDS: PIPER/TAZO/NS 3.375gm 3.375 GM/100 ML BAG IVPB SCH ×2 (00:35→08:50)
[2019-05-28] MEDS: INSULIN LISPRO 100 UNIT/1 ML SQ SCH ×3 (00:35→11:53)
[2019-05-28 06:11] LABS: Potassium 3.7 mmol/L (3.5-5.1)
[2019-05-28] MEDS: PANTOPRAZOLE 40MG TABLET PO SCH (06:28)
[2019-05-28] MEDS: LEVOTHYROXINE SOD 0.088 MG TAB PO SCH (06:28)
[2019-05-28] MEDS: ASPIRIN 81 MG CHEWABLE TABLET PO SCH (08:51)
[2019-05-28] MEDS ORDERED: POTASSIUM CL SA 10 MEQ TAB PO ONE (09:00)
[2019-05-28 09:02] VITALS: TEMP 97.1
[2019-05-28] MEDS: ARFORMOTEROL TARTRATE 15 MCG/2 ML VIAL.NEB NEB SCH (10:00)
[2019-05-28 11:28] VITALS: O2SAT 98
[2019-05-28 12:20] VITALS: BP 133/60
--- NOTE | 2019-05-28 12:32 | P.DS ---
Admission Date: 05/22/19 Discharge Date: 05/28/19 Primary Care Provider: [facility] Disposition: ROUTINE DISCHARGE Discharge Condition: FAIR Reason for Admission: Altered mental status hypoglycemia - Problems (1) Aspiration pneumonia Current Visit: Yes Status: Acute (2) Diabetes mellitus Onset Date: 01/30/17 Current Visit: No Status: Chronic Qualifiers: Diabetes mellitus type: type 1 Diabetes mellitus complication status: with circulatory complication Diabetes mellitus complication detail: with other circulatory complications Qualified Code(s): E10.59 - Type 1 diabetes mellitus with other circulatory complications Brief History of Present Illness: Patient is a 64-year-old male with past medical history of COPD, diabetes, bilateral BKA, was found unresponsive with a glucose of 33 at home. Patient was brought into the ER for further evaluation. He was given of D50 which brought his blood sugar up to 130. CT head was unremarkable and showed no acute intracranial process. His chest x-ray reported multiple patchy opacities suggestive of aspiration pneumonia. He was started on D5W and admitted for further managed. Hospital Course: Patient admitted to the medical floor, his mental status improved with dextrose administration. Patient was started on IV antibiotics for aspiration pneumonia. His blood cultures yielded no growth. Sputum cultures grew MRSA sensitive to Levaquin and tetracycline. He has been on 5 units of Lantus at home along with Novolin for sliding scale. His blood sugar was very brittle. 5 units Lantus insulin caused him to develop hypoglycemia. He was sometimes hyperglycemic with the short-acting insulin. Patient will be discharged with short-acting insulin for glucose management. He will need to follow up with an second cook and baker at the [facility]. His pneumonia has improved significantly. Chest x- ray showed significant improvement. He is prescribed Levaquin and doxycycline to continue treatment for the MRSA pneumonia. He has bilateral BKA but able to transfer without assistance. He is deemed clinically stable for discharge. Vital Signs/Physical Exam: Temp Pulse Resp BP Pulse Ox 97.1 F 83 17 133/60 93 05/28/19 12:00 05/28/19 12:00 05/28/19 12:00 05/28/19 12:00 05/28/19 12:00 General: In no apparent distress, Oriented x3 HEENT: Mucous membr. moist/pink Neck: Supple, JVD not distended Respiratory: Clear to auscultation bilaterally, Normal air movement Cardiovascular: No edema, Regular rate/rhythm, Normal S1 S2, No murmurs Gastrointestinal: Normal bowel sounds, Soft and benign, Non-distended, No tenderness Musculoskeletal: Other (B/L BKA) Integumentary: No rashes Laboratory Data at Discharge: WBC 8.1 K/uL (4.3-10.9) 05/24/19 05:30 Hgb 11.4 g/dL (13.6-17.9) L 05/24/19 05:30 Hct 33.7 % (39.6-49.0) L 05/24/19 05:30 Plt Count 196 K/uL (152-406) 05/24/19 05:30 PT 11.2 SECONDS (9.5-12.5) 05/22/19 11:15 INR 0.95 05/22/19 11:15 Sodium 141 mmol/L (136-145) 05/28/19 05:43 Potassium 3.7 mmol/L (3.5-5.1) 05/28/19 05:43 BUN 20 mg/dL (7-18) H 05/28/19 05:43 Creatinine 1.15 mg/dL (0.55-1.3) 05/28/19 05:43 Glucose 171 mg/dL (74-106) H 05/28/19 05:43 Phosphorus 3.6 mg/dL (2.5-4.9) 05/26/19 05:32 Magnesium 2.0 mg/dL (1.8-2.4) 05/26/19 05:32 Total Bilirubin 0.7 mg/dL (0.2-1.0) 05/24/19 05:30 AST 60 U/L (15-37) H 05/24/19 05:30 ALT 42 U/L (12-78) 05/24/19 05:30 Alkaline Phosphatase 77 U/L (45-117) 05/24/19 05:30 Home Medications: Albuterol Inhaler [Ventolin Inhaler*] 2 puff IH Q6HR PRN 05/24/19 Brinzolamide/Brimonidine Tart [Simbrinza 1%-0.2% Eye Drops] 1 drop OPTH BID 02/04 Budesonide/Formoterol Fumarate [Symbicort 160-4.5 Mcg Inhaler] 2 puff IH BID 02/04 Cyclopentolate 1% [Cyclogyl 1%*] 1 drop OPTH DAILY PRN 05/24/19 Levothyroxine [Synthroid*] 1 tab PO [id number] 05/24/19 Simvastatin 1 tab PO BEDTIME 05/24/19 Glucagon,Human Recombinant [Glucagon Emergency Kit] 1 mg IJ 1X PRN #1 kit levoFLOXacin [Levaquin] 750 mg PO DAILY #5 tab 05/25/19 Doxycycline Hyclate 100 mg PO BID 10 Days #20 capsule 05/28/19 Insulin Lispro [Humalog*] 0 unit SQ ACHS #10 ml 05/28/19 New Medications: Doxycycline Hyclate 100 mg PO BID 10 Days #20 capsule Glucagon,Human Recombinant [Glucagon Emergency Kit] 1 mg IJ 1X PRN #1 kit PRN Reason: Hypoglycemia Insulin Lispro [Humalog*] 0 unit SQ ACHS #10 ml levoFLOXacin [Levaquin] 750 mg PO DAILY #5 tab Patient Discharge Instructions: f/up w PCP in 2-3 days. Establish care w second cook and baker in 2 weeks. Return to ER for worsening condition Diet: ADA (DO NOT SKIP MEALS) Activity: Fall precautions Time spent managing pt's care (in minutes): 45
== END 2019-05-28 15:02 | disposition home health service (06) | DRG 177 ==
LOC: ER 09:41 → ERHOLD 13:50 → 2ND 15:41
PROVIDERS: ADMIT Family Medicine; ATTEND Internal Medicine
DX: J69.0 Pneumonitis due to inhalation of food and vomit (principal); G93.41 Metabolic encephalopathy; J44.0 Chronic obstructive pulmonary disease with (acute) lower respiratory infection; E11.649 Type 2 diabetes mellitus with hypoglycemia without coma; S00.03XA Contusion of scalp, initial encounter; J44.9 Chronic obstructive pulmonary disease, unspecified; E78.2 Mixed hyperlipidemia; E03.9 Hypothyroidism, unspecified; I10 Essential (primary) hypertension; W19.XXXA Unspecified fall, initial encounter; Z89.512 Acquired absence of left leg below knee; Z89.511 Acquired absence of right leg below knee
CPT/HCPCS: 36415; 70450; 71045; 80048; 80053; 80076; 81003; 82805; 82947; 82962; 83036; 83605; 83735; 83880; 84100; 84145; 84439; 84443; 84484; 85025; 85610; 87040; 87070; 87077; 87186; 87205; 93005; 94640; 94760; 96374; 96375; 97110; 97112; 97161; 97530; 99285; J0456; J0696; J1650; J1815; J2405; J2543; J2550; J2930; J3475; J7030; J7605; J7799

== ENCOUNTER 2019-09-29 12:14 | Inpatient (IN) | payer OTHER ==
--- OUTSIDE RECORDS SUMMARY | 2019-09-29 12:16 | XMS REPORT ---
:1955 [facility] [address] [place] [address] Care Team Providers Name Role Phone LAMONT [...] (BEAKER) (test 268 mg/dL 70-110 TESTED AT [facility] [address] [facility] rlqv[facility][id number]) [facility] [address] POCT-GLUCOSE [id number] 07:49:00 Test Item Value Reference Range Comments POC-GLUCOSE METER (BEAKER) 219 mg/dL 70-110 TESTED AT [facility] [address] (test cnng=2145) [facility] [address] BASIC METABOLIC [id number] 07:26:00 Test Item Value Reference Range Comments SODIUM (BEAKER) (test 134 meq/L 136-145 eyjj=772) POTASSIUM (BEAKER) (test 3.6 meq/L 3.5-5.1 enbx=965) CHLORIDE (BEAKER) (test 103 meq/L 98-107 cyuf=436) CO2 (BEAKER) (test 23 meq/L 22-29 bost=682) BLOOD UREA NITROGEN 21 mg/dL 7-21 (BEAKER) (test seam=832) CREATININE (BEAKER) (test 1.23 mg/dL 0.57-1.25 xosz=485) GLUCOSE RANDOM (BEAKER) 212 mg/dL 70-105 (test xare=699) CALCIUM (BEAKER) (test 9.0 mg/dL 8.4-10.2 iqot=583) EGFR (BEAKER) (test 60 mL/min/1.73 sq m ESTIMATED GFR IS NOT wrhf=1392) ACCURATE CREATININE CLEARANCE IN PREDICTING GLOMERULAR FILTRATION RATE. ESTIMATED GFR IS NOT APPLICABLE FOR DIALYSIS PATIENTS. CBC W/PLT COUNT & AUTO [id number] 06:02:00 Test Item Value Reference Range Comments WHITE BLOOD CELL COUNT (BEAKER) (test hzfc=038) 6.5 K/ L 4.0-10.0 RED BLOOD CELL COUNT (BEAKER) (test mger=346) 3.90 M/ L 4.20-5.80 HEMOGLOBIN (BEAKER) (test nzrh=696) 12.0 GM/DL 13.0-16.8 HEMATOCRIT (BEAKER) (test kcxh=843) 36.0 % 40.0-50.0 MEAN CORPUSCULAR VOLUME (BEAKER) (test bprm=616) 92.2 fL 82.0-98.0 MEAN CORPUSCULAR HEMOGLOBIN (BEAKER) (test 30.8 pg 27.0-33.0 jezo=791) MEAN CORPUSCULAR HEMOGLOBIN CONC (BEAKER) (test 33.4 GM/DL 32.0-36.0 mcdd=167) RED CELL DISTRIBUTION WIDTH (BEAKER) (test 12.2 % 10.3-14.2 cxza=285) PLATELET COUNT (BEAKER) (test tnsa=154) 187 K/CU MM 150-430 MEAN PLATELET VOLUME (BEAKER) (test pilv=075) 8.0 fL 6.5-10.5 NUCLEATED RED BLOOD CELLS (BEAKER) (test 0 /100 WBC 0-0 chtl=063) NEUTROPHILS RELATIVE PERCENT (BEAKER) (test 58 % jdzm=732) LYMPHOCYTES RELATIVE PERCENT (BEAKER) (test 23 % ekdi=144) MONOCYTES RELATIVE PERCENT (BEAKER) (test 11 % iyvo=313) EOSINOPHILS RELATIVE PERCENT (BEAKER) (test 7 % mnkq=685) BASOPHILS RELATIVE PERCENT (BEAKER) (test 1 % faim=212) NEUTROPHILS ABSOLUTE COUNT (BEAKER) (test 3.78 K/ L 1.80-8.00 lhgz=348) LYMPHOCYTES ABSOLUTE COUNT (BEAKER) (test 1.52 K/ L 1.48-4.50 oare=726) MONOCYTES ABSOLUTE COUNT (BEAKER) (test 0.73 K/ L 0.00-1.30 lcgn=248) EOSINOPHILS ABSOLUTE COUNT (BEAKER) (test 0.48 K/ L 0.00-0.50 tqrp=757) BASOPHILS ABSOLUTE COUNT (BEAKER) (test 0.04 K/ L 0.00-0.20 allh=233) 0.00POCT-GLUCOSE [id number] 23:23:00 Test Item Value Reference Range Comments POC-GLUCOSE METER (BEAKER) 339 mg/dL 70-110 TESTED AT [address] (test pmrl=4558) [facility] [address] POCT-GLUCOSE [id number] 19:55:00 Test Item Value Reference Range Comments POC-GLUCOSE METER (BEAKER) 366 mg/dL 70-110 Will Repeat Test/TESTED AT (test zfxk=8011) [address] [address] POCT-GLUCOSE [id number] 18:14:00 Test Item Value Reference Range Comments POC-GLUCOSE METER (BEAKER) 410 mg/dL 70-110 TESTED AT [address] (test qnjg=2107) [facility] [address] POCT-GLUCOSE [id number] 16:43:00 Test Item Value Reference Range Comments POC-GLUCOSE METER (BEAKER) 403 mg/dL 70-110 Notified NEGRA FONSECA/TESTED AT [facility] (test jrpf=7916) [address] [place] [address] CBC W/PLT COUNT & AUTO [id number] 11:17:00 Test Item Value Reference Range Comments WHITE BLOOD CELL COUNT (BEAKER) (test hnhn=565) 8.5 K/ L 4.0-10.0 RED BLOOD CELL COUNT (BEAKER) (test ivql=347) 4.34 M/ L 4.20-5.80 HEMOGLOBIN (BEAKER) (test mbsp=245) 13.1 GM/DL 13.0-16.8 HEMATOCRIT (BEAKER) (test xvbr=278) 40.4 % 40.0-50.0 MEAN CORPUSCULAR VOLUME (BEAKER) (test fyvy=871) 93.1 fL 82.0-98.0 MEAN CORPUSCULAR HEMOGLOBIN (BEAKER) (test 30.1 pg 27.0-33.0 tgkd=274) MEAN CORPUSCULAR HEMOGLOBIN CONC (BEAKER) (test 32.3 GM/DL 32.0-36.0 hrbb=713) RED CELL DISTRIBUTION WIDTH (BEAKER) (test 13.4 % 10.3-14.2 ufqj=891) PLATELET COUNT (BEAKER) (test jbre=963) 190 K/CU MM 150-430 MEAN PLATELET VOLUME (BEAKER) (test crqw=786) 8.3 fL 6.5-10.5 NUCLEATED RED BLOOD CELLS (BEAKER) (test 0 /100 WBC 0-0 mluu=072) NEUTROPHILS RELATIVE PERCENT (BEAKER) (test 68 % tgqf=879) LYMPHOCYTES RELATIVE PERCENT (BEAKER) (test 18 % qsot=466) MONOCYTES RELATIVE PERCENT (BEAKER) (test 7 % caoi=861) EOSINOPHILS RELATIVE PERCENT (BEAKER) (test 5 % kvnk=172) BASOPHILS RELATIVE PERCENT (BEAKER) (test 1 % edan=286) NEUTROPHILS ABSOLUTE COUNT (BEAKER) (test 5.84 K/ L 1.80-8.00 bxjt=925) LYMPHOCYTES ABSOLUTE COUNT (BEAKER) (test 1.57 K/ L 1.48-4.50 bjjd=332) MONOCYTES ABSOLUTE COUNT (BEAKER) (test 0.62 K/ L 0.00-1.30 udvu=724) EOSINOPHILS ABSOLUTE COUNT (BEAKER) (test 0.44 K/ L 0.00-0.50 kzep=774) BASOPHILS ABSOLUTE COUNT (BEAKER) (test 0.06 K/ L 0.00-0.20 dard=689) 0.00POCT-GLUCOSE [id number] 08:34:00 Test Item Value Reference Range Comments POC-GLUCOSE METER (BEAKER) 293 mg/dL 70-110 TESTED AT [facility] [address] (test yamr=0181) [facility] [address] CBC W/PLT COUNT & AUTO [id number] 07:38:00 Test Item Value Reference Range Comments WHITE BLOOD CELL COUNT (BEAKER) K/ L 4.0-10.0 clotThis is a corrected (test gxqp=528) result. Previous result was 0.0 K/ L on 01/31/2017 at 0733 CDT RED BLOOD CELL COUNT (BEAKER) M/ L 4.20-5.80 clotThis is a corrected (test nvjo=716) result. Previous result was 2.30 M/ L on 01/31/2017 at 0733 CDT HEMOGLOBIN (BEAKER) (test GM/DL 13.0-16.8 clotThis is a corrected vkvh=693) result. Previous result was 9.8 GM/DL on 01/31/[address] [place], [place] [address] HEMATOCRIT (BEAKER) (test % 40.0-50.0 clotThis is a corrected bpzt=678) result. Previous result was 21.4 % on 01/31/[address] [place] [address] MEAN CORPUSCULAR VOLUME fL 82.0-98.0 clotThis is a corrected (BEAKER) (test qmzr=801) result. Previous result was 92.8 fL on 01/31/[address] [place], [place] [address] MEAN CORPUSCULAR HEMOGLOBIN pg 27.0-33.0 clotThis is a corrected (BEAKER) (test zalg=119) result. Previous result was 42.5 pg on 01/31/[address] [place] [address] MEAN CORPUSCULAR HEMOGLOBIN GM/DL 32.0-36.0 clotThis is a corrected CONC (BEAKER) (test fbsg=869) result. Previous result was 45.8 GM/DL on 01/31/[address] [place], [place] [address] RED CELL DISTRIBUTION WIDTH % 10.3-14.2 clotThis is a corrected (BEAKER) (test gbsc=535) result. Previous result was 12.1 % on 01/31/[address] [place], [place] [address] PLATELET COUNT (BEAKER) (test K/CU MM 150-430 clotThis is a corrected xkyt=524) result. Previous result was 168 K/CU MM on 01/31/[address] [place] [address] MEAN PLATELET VOLUME (BEAKER) fL 6.5-10.5 clotThis is a corrected (test ssdt=825) result. Previous result was 8.1 fL on 01/31/[address] [place], [place] [address] NUCLEATED RED BLOOD CELLS /100 WBC 0-0 This is a corrected result. (BEAKER) (test rdlu=085) Previous result was 0 /100 WBC on 01/31/[address] [place], [place] [address]T 0.000.850.000.000.000.000.000.00BASIC METABOLIC [id number] 06:27:00 Test Item Value Reference Range Comments SODIUM (BEAKER) (test 135 meq/L 136-145 wozu=660) POTASSIUM (BEAKER) (test 4.6 meq/L 3.5-5.1 Specimen slightly teyc=335) hemolyzed CHLORIDE (BEAKER) (test 106 meq/L 98-107 gpxw=945) CO2 (BEAKER) (test 17 meq/L 22-29 rgki=397) BLOOD UREA NITROGEN 20 mg/dL 7-21 (BEAKER) (test pybp=792) CREATININE (BEAKER) (test 0.94 mg/dL 0.57-1.25 Specimen slightly evtr=017) hemolyzed GLUCOSE RANDOM (BEAKER) 237 mg/dL 70-105 (test yytz=464) CALCIUM (BEAKER) (test 9.1 mg/dL 8.4-10.2 kpci=854) EGFR (BEAKER) (test 82 mL/min/1.73 sq m ESTIMATED GFR IS NOT hntt=0688) ACCURATE CREATININE CLEARANCE IN PREDICTING GLOMERULAR FILTRATION RATE. ESTIMATED GFR IS NOT APPLICABLE FOR DIALYSIS PATIENTS. POCT-GLUCOSE [id number] 21:00:00 Test Item Value Reference Range Comments POC-GLUCOSE METER (BEAKER) 203 mg/dL 70-110 TESTED AT [facility] [address] (test wsqq=4214) [facility] [address]
[2019-09-29] MEDS ORDERED: CEFTRIAXONE/SWI 1gm 1 GM/10 ML SYR ONE (12:39)
[2019-09-29] MEDS ORDERED: ACETAMINOPHEN 325 MG TABLET ONE (12:39)
[2019-09-29] MEDS ORDERED: NA CHLORIDE 0.9% 500 ML ONE (12:39)
[2019-09-29] MEDS ORDERED: NA CHLORIDE 0.9% 1,000 ML ONE ×2 (12:39→13:57)
--- NOTE | 2019-09-29 13:10 | ER ---
Nurse's Notes [facility] Name: Edson Spence Age: 64 yrs Sex: Male : 1955 Arrival Date: 09/29/2019 Time: 12:15 Bed 25 Private MD: Diagnosis: Weakness;Vomiting;Fever, unspecified;Type 1 diabetes mellitus;Chronic obstructive pulmonary disease, unspecified;Volume depletion;Influenza due to identified novel influenza A virus Presentation: 09/29 12:15 Presenting complaint: EMS states: he has n/v, weakness and low grade fever since last mg2 night. BGL 259 mg/dl.BP 180/103. Transition of care: patient was not received from another setting of care. Onset of symptoms was September 29, 2019. Risk Assessment: Do you want to hurt yourself or someone else? Patient reports no desire to harm self or others. Initial Sepsis Screen: Does the patient meet any 2 criteria? No. Patient's initial sepsis screen is negative. Does the patient have a suspected source of infection? No. Patient's initial sepsis screen is negative. Care prior to arrival: None. 12:15 Method Of Arrival: EMS: [facility] mg2 12:15 Acuity: CHRISTOPHER 3 mg2 Historical: - Allergies: 12:19 NKA; mg2 - Home Meds: 12:19 levothyroxine 100 mcg tab 1 tab once daily [Active]; simvastatin 40 mg Oral tab 1 tab mg2 nightly [Active]; insulin [Active]; aspirin 81 mg Oral TbEC 1 tab once daily [Active]; metoprolol tartrate 25 mg Oral tab 1 tab 2 times per day [Active]; - PMHx: 12:19 COPD; Diabetes - IDDM; High Cholesterol; Hypertension; Hypothyroidism; Myocardial mg2 infarction; - PSHx: 12:19 bilateral leg amputee; mg2 - Immunization history:: Flu vaccine is up to date. - Coronavirus screen:: The patient has NOT traveled to [place], [place], or [place] in the past 14 days. Proceed with normal triage process as indicated. - Social history:: Smoking status: Patient denies any tobacco usage or history of. - Family history:: not pertinent. - Ebola Screening: : No symptoms or risks identified at this time. Screenin:56 Abuse screen: Denies threats or abuse. Denies injuries from another. Nutritional mg2 screening: No deficits noted. Tuberculosis screening: No symptoms or risk factors identified. Fall Risk Secondary diagnosis (15 points) impaired mobility, IV access (20 points). Gait- Impaired (20 pts.). Assessment: 13:24 General: Appears in no apparent distress. comfortable, Behavior is calm, cooperative. mg2 Pain: Complains of pain in abdomen. Neuro: Level of Consciousness is awake, alert, obeys commands, Oriented to person, place, time, situation. Cardiovascular: Capillary refill < 3 seconds Patient's skin is warm and dry. Respiratory: Reports cough that is Airway is patent Respiratory effort is even, unlabored, Respiratory pattern is regular, symmetrical. GI: Reports normal bowel habits, vomiting. : EENT: No signs and/or symptoms were reported regarding the EENT system. Derm: Skin is intact, is healthy with good turgor, Skin is pink, warm \T\ dry. normal. Musculoskeletal: Circulation, motion, and sensation intact. Capillary refill < 3 seconds, Reports weakness in whole body. Vital Signs: 12:17 BP 175 / 69; Pulse 122; Resp 18; Temp 100.3; Pulse Ox 92% on R/A; Weight 49.44 kg; mg2 13:25 BP 176 / 91; Pulse 122; Resp 20; Pulse Ox 100% on Nebulizer Mask; mg2 15:00 BP 128 / 54; Pulse 128; Resp 18; Temp 100.7(O); Pulse Ox 96% on 2 lpm NC; mg2 ED Course: 12:15 Patient arrived in ED. mg2 12:17 Triage completed. mg2 12:18 Arm band placed on. mg2 12:22 Willy Jones MD is Attending Physician. marika 12:26 Yony Schmidt, NEGRA is Primary Nurse. mg2 12:30 Inserted saline lock: 20 gauge in left forearm, using aseptic technique. Blood mg2 collected. 12:57 No provider procedures requiring assistance completed. mg2 13:08 Khari De La Rosa DO is Hospitalizing Provider. marika 13:25 Patient has correct armband on for positive identification. quality assurance monitor chassis on. Pulse mg2 ox on. NIBP on. Door closed. 13:30 Straight cath inserted, using sterile technique, Returned clear yellow urine. Patient mg2 tolerated well. 400 ml. 15:25 Patient admitted, IV remains in place. mg2 Administered Medications: 12:43 Drug: NS 0.9% 1000 ml Route: IV; Rate: 1 bolus; Site: left forearm; ss 15:24 Follow up: Response: No adverse reaction; IV Status: Completed infusion; IV Intake: mg2 1000ml 13:03 Drug: NS 0.9% 500 ml Route: IV; Rate: bolus; Site: left forearm; mg2 15:20 Follow up: Response: No adverse reaction; IV Status: Completed infusion; IV Intake: mg2 500ml 13:03 Drug: Rocephin 1 grams Route: IV; Rate: per protocol; Site: left forearm; mg2 15:08 Follow up: Response: No adverse reaction; IV Status: Completed infusion mg2 13:09 Drug: Tylenol 650 mg Route: PO; ss 15:07 Follow up: Response: No adverse reaction mg2 13:17 Drug: Xopenex 2.5 mg Route: Inhalation; mg2 13:17 Drug: AtroVENT Aerosol 0.5 mg Route: Inhalation; mg2 15:17 Follow up: Response: No adverse reaction mg2 13:27 Not Given (Duplicate Order): NS 0.9% (30 ml/kg) 30 ml/kg IV at bolus once; Sepsis mg2 Protocol 13:50 Drug: Zofran 4 mg Route: IVP; Site: left forearm; mg2 15:05 Follow up: Response: No adverse reaction mg2 13:55 Drug: Pepcid 20 mg Route: IVP; Site: left forearm; mg2 15:03 Follow up: Response: No adverse reaction mg2 14:09 Drug: Zithromax 500 mg Route: IVPB; Infused Over: 1 hrs; Site: left forearm; mg2 15:06 Follow up: Response: No adverse reaction; IV Status: Completed infusion; IV Intake: mg2 250ml 14:09 Drug: SOLU-Medrol 2 mg/kg Route: IVP; Site: left forearm; mg2 15:06 Follow up: Response: No adverse reaction mg2 14:09 Drug: Xopenex 1.25 mg Route: Inhalation; mg2 14:10 Drug: Tamiflu 75 mg Route: PO; mg2 15:07 Follow up: Response: No adverse reaction mg2 14:13 Drug: NS 0.9% 1000 ml Route: IV; Rate: 125 ml/hr; Site: left forearm; mg2 15:25 Follow up: Response: No adverse reaction; IV Status: Infusion continued upon admission mg2 15:04 Drug: Motrin 400 mg Route: PO; mg2 15:16 Follow up: Response: No adverse reaction mg2 Intake: 15:06 IV: 250ml; Total: 250ml. mg2 15:20 IV: 500ml; Total: 750ml. mg2 15:24 IV: 1000ml; Total: 1750ml. mg2 Outcome: 13:10 Decision to Hospitalize by Provider. marika 15:26 Admitted to Med/surg accompanied by tech, via stretcher, room 225, with oxygen, with mg2 chart, Report called to NEGRA Magallanes 15:26 Condition: stable 15:26 Instructed on the need for admit, Demonstrated understanding of instructions. 15:37 Patient left the ED. mg2 Signatures: Willy Jones MD MD cha Smirch, Shelby, RN RN ss Gardose, Michele, RN RN mg2
--- NOTE | 2019-09-29 13:10 | EDPHYS ---
Physician Documentation [facility] Name: Edson Spence Age: 64 yrs Sex: Male : 1955 Arrival Date: 09/29/2019 Time: 12:15 Bed 25 Private MD: ED Physician Willy Jones HPI: 09/29 13:02 This 64 yrs old Male presents to ER via EMS with complaints of vomiting, marika fever and cough. 13:02 The patient presents to the emergency department with nausea, vomiting, diarrhea, marika abdominal pain. Onset: The symptoms/episode began/occurred 2 day(s) ago. Possible causes: unknown. The symptoms are aggravated by nothing. The symptoms are alleviated by nothing. fever, weakness, cough, vomiting. The patient or guardian reports cough, that is intermittent, flu symptoms, arthralgias, low-grade fever, myalgias. Severity of symptoms: At their worst the symptoms were mild, moderate, in the emergency department the symptoms are unchanged. Associated signs and symptoms: The patient has no apparent associated signs or symptoms. Historical: - Allergies: 12:19 NKA; mg2 - Home Meds: 12:19 levothyroxine 100 mcg tab 1 tab once daily [Active]; simvastatin 40 mg Oral tab 1 tab mg2 nightly [Active]; insulin [Active]; aspirin 81 mg Oral TbEC 1 tab once daily [Active]; metoprolol tartrate 25 mg Oral tab 1 tab 2 times per day [Active]; - PMHx: 12:19 COPD; Diabetes - IDDM; High Cholesterol; Hypertension; Hypothyroidism; Myocardial mg2 infarction; - PSHx: 12:19 bilateral leg amputee; mg2 - Immunization history:: Flu vaccine is up to date. - Coronavirus screen:: The patient has NOT traveled to [place], [place], or [place] in the past 14 days. Proceed with normal triage process as indicated. - Social history:: Smoking status: Patient denies any tobacco usage or history of. - Family history:: not pertinent. - Ebola Screening: : No symptoms or risks identified at this time. ROS: 13:02 Constitutional: Negative for fever, chills, and weight loss, Eyes: Negative for injury, marika pain, redness, and discharge, ENT: Negative for injury, pain, and discharge, Neck: Negative for injury, pain, and swelling, Cardiovascular: Negative for chest pain, palpitations, and edema, Back: Negative for injury and pain, : Negative for injury, bleeding, discharge, and swelling, MS/Extremity: Negative for injury and deformity, Skin: Negative for injury, rash, and discoloration, Psych: Negative for depression, anxiety, suicide ideation, homicidal ideation, and hallucinations, Allergy/Immunology: Negative for hives, rash, and allergies, Endocrine: Negative for neck swelling, polydipsia, polyuria, polyphagia, and marked weight changes, Hematologic/Lymphatic: Negative for swollen nodes, abnormal bleeding, and unusual bruising. 13:02 Respiratory: Positive for cough, shortness of breath, at rest. 13:02 Abdomen/GI: Positive for nausea and vomiting. 13:02 Neuro: Positive for weakness. Exam: 13:02 Head/Face: Normocephalic, atraumatic. Eyes: Pupils equal round and reactive to light, marika extra-ocular motions intact. Lids and lashes normal. Conjunctiva and sclera are non-icteric and not injected. Cornea within normal limits. Periorbital areas with no swelling, redness, or edema. ENT: Nares patent. No nasal discharge, no septal abnormalities noted. Tympanic membranes are normal and external auditory canals are clear. Oropharynx with no redness, swelling, or masses, exudates, or evidence of obstruction, uvula midline. Mucous membranes moist. Neck: Trachea midline, no thyromegaly or masses palpated, and no cervical lymphadenopathy. Supple, full range of motion without nuchal rigidity, or vertebral point tenderness. No Meningismus. Chest/axilla: Normal chest wall appearance and motion. Nontender with no deformity. No lesions are appreciated. Respiratory: Lungs have equal breath sounds bilaterally, clear to auscultation and percussion. No rales, rhonchi or wheezes noted. No increased work of breathing, no retractions or nasal flaring. Back: No spinal tenderness. No costovertebral tenderness. Full range of motion. Male : Normal genitalia with no discharge or lesions. Skin: Warm, dry with normal turgor. Normal color with no rashes, no lesions, and no evidence of cellulitis. MS/ Extremity: Pulses equal, no cyanosis. Neurovascular intact. Full, normal range of motion. Neuro: Awake and alert, GCS 15, oriented to person, place, time, and situation. Cranial nerves II-XII grossly intact. Motor strength 5/5 in all extremities. Sensory grossly intact. Cerebellar exam normal. Normal gait. Psych: Awake, alert, with orientation to person, place and time. Behavior, mood, and affect are within normal limits. 13:02 Cardiovascular: Rate: tachycardic, Rhythm: regular, Pulses: Pulses are 4+ in bilateral radial, brachial, femoral, popliteal, posterior tibial and and dorsalis pedis arteries.. Heart sounds: normal, JVD: is not appreciated. 13:02 Musculoskeletal/extremity: Circulation is intact in all extremities. Sensation intact. Compartment Syndrome exam of affected extremity: is normal. DVT Exam: no pain, no swelling, no tenderness, negative Homans' sign noted on exam, no appreciated bluish discoloration, no erythema, no increased warmth, stumps, not infected. Vital Signs: 12:17 BP 175 / 69; Pulse 122; Resp 18; Temp 100.3; Pulse Ox 92% on R/A; Weight 49.44 kg; mg2 13:25 BP 176 / 91; Pulse 122; Resp 20; Pulse Ox 100% on Nebulizer Mask; mg2 15:00 BP 128 / 54; Pulse 128; Resp 18; Temp 100.7(O); Pulse Ox 96% on 2 lpm NC; mg2 MDM: 12:[address] [facility] 13:06 Data reviewed: vital signs, nurses notes, lab test result(s), EKG, radiologic studies, marika plain films. 09/29 12:27 Order name: Amylase, Serum mg2 09/29 12:27 Order name: Basic Metabolic Panel mg2 09/29 12:27 Order name: Blood Culture Adult (2) mg2 09/29 12:27 Order name: CBC with Diff mg2 09/29 12:27 Order name: Ckmb mg2 09/29 12:27 Order name: CPK mg2 09/29 12:27 Order name: Lactate mg2 09/29 12:27 Order name: LFT's mg2 09/29 12:27 Order name: Lipase mg2 09/29 12:27 Order name: Procalcitonin mg2 09/29 12:27 Order name: Protime (+inr) mg2 09/29 12:27 Order name: Ptt, Activated mg2 09/29 12:27 Order name: Troponin (emerg Dept Use Only) mg2 09/29 12:27 Order name: Urine Microscopic Only [facility] 09/[place] 12:31 Order name: Basic Metabolic Panel [facility] 09/29 12:31 Order name: CBC with Diff [facility] 09/29 12:31 Order name: LFT's [facility] 09/29 12:31 Order name: Magnesium [facility] 09/29 12:31 Order name: NT PRO-BNP [facility] 09/29 12:31 Order name: PT-INR [facility] 09/29 12:31 Order name: Troponin (emerg Dept Use Only) [facility] 09/29 12:31 Order name: Lipase [facility] 09/29 12:31 Order name: Lactate [facility] 09/29 12:31 Order name: Urine Culture [facility] 09/29 12:31 Order name: Influenza Screen (a \T\ B) [facility] 09/29 12:59 Order name: Glucose, Ancillary Testing; Complete Time: 13:06 EDOR 09/29 13:24 Order name: CBC with Automated Diff; Complete Time: 13:29 EDOR 09/29 13:24 Order name: Influenza Screen (A ; Complete Time: 13:29 EDOR 09/29 13:29 Order name: Urine Dipstick--Ancillary (enter results) 09/29 13:30 Order name: Lactate; Complete Time: 13:39 EDMS 09/29 12:27 Order name: Chest Single View [place] [facility] 12:27 Order name: Accucheck; Complete Time: 13:08 [facility] 09/[place] 12:31 Order name: XRAY Chest (1 view) [facility] 09/29 12:31 Order name: EKG; Complete Time: 12:[address] [facility] 09/29 13:30 Order name: Protime (+INR); Complete Time: 13:39 EDOR 09/29 13:30 Order name: PTT, Activated Partial Thromb; Complete Time: 13:39 EDMS 09/29 13:37 Order name: Urine Dipstick-Ancillary; Complete Time: 13:39 EDMS 09/29 13:45 Order name: Basic Metabolic Panel; Complete Time: 14:38 EDMS 09/29 13:45 Order name: Liver (Hepatic) Function; Complete Time: 14:38 EDMS 09/29 13:45 Order name: Creatine Phosphokinase; Complete Time: 14:38 EDMS 09/29 13:45 Order name: CKMB Creatine Kinase MB; Complete Time: 14:38 EDMS 09/29 13:46 Order name: Troponin (Emerg Dept Use Only); Complete Time: 14:38 EDOR 09/29 13:46 Order name: Amylase Level; Complete Time: 14:38 EDOR 09/29 13:46 Order name: Lipase; Complete Time: 14:38 EDOR 09/29 13:46 Order name: Urine Microscopic Only; Complete Time: 14:38 EDOR 09/29 13:47 Order name: Procalcitonin; Complete Time: 14:38 EDOR 09/29 13:59 Order name: RAD; Complete Time: 14:38 EDOR 09/29 12:27 Order name: Cardiac monitoring; Complete Time: 13:08 mg2 09/29 12:27 Order name: EKG - Nurse/Tech; Complete Time: 13: [facility] 09/[place] 12:27 Order name: IV Saline Lock - Large Bore; Complete Time: 13: mg2 09/29 12:27 Order name: Labs collected and sent; Complete Time: 13: [facility] 09/[place] 12:27 Order name: O2 Per Protocol; Complete Time: 13: [facility] 09/[place] 12:27 Order name: O2 Sat Monitoring; Complete Time: 13: mg2 09/29 12:27 Order name: Urine Dipstick-Ancillary (obtain specimen); Complete Time: 13:28 mg2 09/29 12:31 Order name: Cardiac monitoring; Complete Time: 13: marika 09/29 12:31 Order name: EKG - Nurse/Tech; Complete Time: 13: marika 09/29 12:31 Order name: IV Saline Lock; Complete Time: 13:08 marika 09/29 12:31 Order name: Labs collected and sent; Complete Time: 13: marika 09/29 12:31 Order name: O2 Per Protocol; Complete Time: 13: marika 09/29 12:31 Order name: O2 Sat Monitoring; Complete Time: 13: marika 09/29 12:31 Order name: Urine Dipstick-Ancillary (obtain specimen); Complete Time: 13:[address] [facility] Administered Medications: 12:43 Drug: NS 0.9% 1000 ml Route: IV; Rate: 1 bolus; Site: left forearm; ss 15:24 Follow up: Response: No adverse reaction; IV Status: Completed infusion; IV Intake: mg2 1000ml 13:03 Drug: NS 0.9% 500 ml Route: IV; Rate: bolus; Site: left forearm; mg2 15:20 Follow up: Response: No adverse reaction; IV Status: Completed infusion; IV Intake: mg2 500ml 13:03 Drug: Rocephin 1 grams Route: IV; Rate: per protocol; Site: left forearm; mg2 15:08 Follow up: Response: No adverse reaction; IV Status: Completed infusion mg2 13:09 Drug: Tylenol 650 mg Route: PO; ss 15:07 Follow up: Response: No adverse reaction mg2 13:17 Drug: Xopenex 2.5 mg Route: Inhalation; mg2 13:17 Drug: AtroVENT Aerosol 0.5 mg Route: Inhalation; mg2 15:17 Follow up: Response: No adverse reaction mg2 13:27 Not Given (Duplicate Order): NS 0.9% (30 ml/kg) 30 ml/kg IV at bolus once; Sepsis mg2 Protocol 13:50 Drug: Zofran 4 mg Route: IVP; Site: left forearm; mg2 15:05 Follow up: Response: No adverse reaction mg2 13:55 Drug: Pepcid 20 mg Route: IVP; Site: left forearm; mg2 15:03 Follow up: Response: No adverse reaction mg2 14:09 Drug: Zithromax 500 mg Route: IVPB; Infused Over: 1 hrs; Site: left forearm; mg2 15:06 Follow up: Response: No adverse reaction; IV Status: Completed infusion; IV Intake: mg2 250ml 14:09 Drug: SOLU-Medrol 2 mg/kg Route: IVP; Site: left forearm; mg2 15:06 Follow up: Response: No adverse reaction mg2 14:09 Drug: Xopenex 1.25 mg Route: Inhalation; mg2 14:10 Drug: Tamiflu 75 mg Route: PO; mg2 15:07 Follow up: Response: No adverse reaction mg2 14:13 Drug: NS 0.9% 1000 ml Route: IV; Rate: 125 ml/hr; Site: left forearm; mg2 15:25 Follow up: Response: No adverse reaction; IV Status: Infusion continued upon admission mg2 15:04 Drug: Motrin 400 mg Route: PO; mg2 15:16 Follow up: Response: No adverse reaction mg2 Disposition: 09/29/19 13:10 Hospitalization ordered by Khari De La Rosa for Inpatient Admission. Preliminary diagnosis are Weakness, Vomiting, Fever, unspecified, Type 1 diabetes mellitus, Chronic obstructive pulmonary disease, unspecified, Volume depletion, Influenza due to identified novel influenza A virus. - Bed requested for Telemetry/MedSurg (Inpatient). - Status is Inpatient Admission. mg2 - Condition is Stable. - Problem is new. - Symptoms have improved. Signatures: Dispatcher [employer] EDMS Shivani Gillis Willy Jain MD MD cha Smirch, Shelby, RN RN ss Yony Schmidt RN RN mg2 Corrections: (The following items were deleted from the chart) 13: 13:10 Hospitalization Ordered by Khari De La Rosa DO for Inpatient Admission. Preliminary [facility] diagnosis is Weakness; Vomiting; Fever, unspecified; Type 1 diabetes mellitus; Chronic obstructive pulmonary disease, unspecified; Volume depletion. Bed requested for Telemetry/MedSurg (Inpatient). Status is Inpatient Admission. Condition is Stable. Problem is new. Symptoms have improved. [facility] 14:56 13:31 09/29/2019 13:10 Hospitalization Ordered by Khari De La Rosa DO for Inpatient bd Admission. Preliminary diagnosis is Weakness; Vomiting; Fever, unspecified; Type 1 diabetes mellitus; Chronic obstructive pulmonary disease, unspecified; Volume depletion; Influenza due to identified novel influenza A virus. Bed requested for Telemetry/MedSurg (Inpatient). Status is Inpatient Admission. Condition is Stable. Problem is new. Symptoms have improved. [facility] 15:37 14:56 09/29/2019 13:10 Hospitalization Ordered by Khari De La Rosa DO for Inpatient mg2 Admission. Preliminary diagnosis is Weakness; Vomiting; Fever, unspecified; Type 1 diabetes mellitus; Chronic obstructive pulmonary disease, unspecified; Volume depletion; Influenza due to identified novel influenza A virus. Bed requested for Telemetry/MedSurg (Inpatient). Status is Inpatient Admission. Condition is Stable. Problem is new. Symptoms have improved. bd
[2019-09-29] MEDS ORDERED: IPRATROPIUM BROM 0.5MG/2.5ML ONE (13:15)
[2019-09-29] MEDS ORDERED: LEVALBUTEROL 1.25 MG/3 ML NEB ONE ×2 (13:15→14:01)
[2019-09-29 13:18] LABS: Absolute Lymphocytes (CBC) 1.7 K/uL (0.7-4.9); Basophils % 1.2 % (0-1.3); Hematocrit 42.1 % (39.6-49.0); Lymphocytes % 17.2 % (15.3-44.8); MPV 9.5 fL (7.6-11.3); RBC Red Blood Cell Count 4.77 M/uL (4.33-5.43)
[2019-09-29 13:26] LABS: Protime INR 1.04
--- NOTE | 2019-09-29 13:29 | RAD REPORT ---
EXAM DESCRIPTION: RAD - Chest Single View - 09/29/2019 1:19 pm CLINICAL HISTORY: COUGH Chest pain. COMPARISON: Chest Single View dated 05/23/2019; Chest Single View dated 05/22/2019; Chest Single View dated 04/30/2019; Chest Single View dated 04/02/2019 FINDINGS: Portable technique limits examination quality. The lungs are emphysematous but grossly clear. The heart is normal in size. No displaced fractures. IMPRESSION: No acute intrathoracic process suspected.
[2019-09-29 13:36] LABS: Urine Blood NEGATIVE (NEG); Urine Glucose 2+ (NEG); Urine Protein NEGATIVE (NEG); Urine Specific Gravity 1.015 (1.005-1.030); Urine pH 6.5 (5.0-7.0)
[2019-09-29 13:42] LABS: Urine Bacteria NONE SEEN /HPF (NONE SEEN); Urine RBC <5 /HPF (NONE SEEN)
[2019-09-29] MEDS ORDERED: ONDANSETRON 4 MG/2 ML VIAL ONE (13:42)
[2019-09-29 13:43] LABS: Urine Culture Reflex Order NOT NEEDED; Urine Mucus 1+ /HPF (NONE SEEN)
[2019-09-29 13:44] LABS: ALT/SGPT 18 U/L (12-78); AST/SGOT 23 U/L (15-37); Alkaline Phosphatase 93 U/L (45-117); Amylase Level 10 U/L (25-115); BUN Blood Urea Nitrogen 16 mg/dL (7-18); Bicarbonate 22 mmol/L (21-32); Bilirubin Direct 0.2 mg/dL (0-0.2); Bilirubin Total 0.5 mg/dL (0.2-1.0); CKMB Creatine Kinase MB 1.1 ng/mL (0.3-3.6); Creatine Phosphokinase 87 U/L (39-308); Glucose Level 267 mg/dL (74-106); Lipase 24 U/L (73-393); Potassium 3.7 mmol/L (3.5-5.1); Protein, Total 8.3 g/dL (6.4-8.2); Sodium Level 139 mmol/L (136-145); Troponin (Emerg Dept Use Only) < 0.02 ng/mL (0.0-0.045)
--- NOTE | 2019-09-29 13:57 | P.HP ---
Certification for Inpatient Patient admitted to: Observation With expected LOS: <2 Midnights Patient will require the following post-hospital care: None Practitioner: I am a practitioner with admitting privileges, knowledge of patient current condition, hospital course, and medical plan of care. Services: Services provided to patient in accordance with Admission requirements found in Title 42 Section 412.3 of the Code of Federal Regulations Patient History Date of Service: 09/29/19 Primary Care Provider: [facility] Reason for admission: Cough, body aches History of Present Illness: 64-year-old male with history of COPD, diabetes, and below-knee amputations. Patient presented with cough, congestion, and runny nose. Symptoms have started over the past week. Symptoms have been getting worse. Multiple members of the family have been sick. He start to have some body aches today with mild fever. Some shortness of breath also noted. He came to the ER for further evaluation. In the ER patient was slightly tachypneic. Room-air saturations within normal range. Chest x-ray showed no evidence of pneumonia. White count 9.6, hemoglobin 14. Platelet count of 195. Lactic acid within normal range. Urinalysis unremarkable. Blood sugar 258. Patient was positive for influenza A. Patient was admitted for further evaluation and observation. When I saw the patient ER, he reported some nausea and vomiting. Body aches, weakness and fatigue also noted. Allergies No Known Drug Allergies Allergy (Verified 04/30/19 23:11) Unknown No Known Allergies Allergy (Uncoded 04/30/19 23:11) Unknown Home medications list reviewed: Yes Home Medications: Albuterol Inhaler [Ventolin Inhaler*] 2 puff IH Q6HR PRN 05/24/19 Brinzolamide/Brimonidine Tart [Simbrinza 1%-0.2% Eye Drops] 1 drop OPTH BID 02/04 Budesonide/Formoterol Fumarate [Symbicort 160-4.5 Mcg Inhaler] 2 puff IH BID 02/04 Cyclopentolate 1% [Cyclogyl 1%*] 1 drop OPTH DAILY PRN 05/24/19 Levothyroxine [Synthroid*] 1 tab PO [id number] 05/24/19 Simvastatin 1 tab PO BEDTIME 05/24/19 Glucagon,Human Recombinant [Glucagon Emergency Kit] 1 mg IJ 1X PRN #1 kit levoFLOXacin [Levaquin] 750 mg PO DAILY #5 tab 05/25/19 Doxycycline Hyclate 100 mg PO BID 10 Days #20 capsule 05/28/19 Insulin Lispro [Humalog*] 0 unit SQ ACHS #10 ml 05/28/19 - Past Medical/Surgical History Diabetic: Yes -: Hyperlipidemia -: Diabetes mellitus type 2 insulin-dependent -: Hypothyroidism -: COPD -: History of bilateral lower extremity amputations -: Arthritis -: PAD -: CAD with prior stents -: Cataract sx -: Hemmorhoidectomy -: L AKA 2004 -: Rt BKA -: Prior stents Psychosocial/ Personal History: Patient lives at home with son. - Family History Mother -: Heart disease, Diabetes - Social History Smoking Status: Former smoker Alcohol use: No CD- Drugs: No Caffeine use: Yes Place of Residence: Home Review of Systems General: Fever, Chills, Weakness, Malaise Eyes: As per HPI ENT: Nose Congestion, As per HPI Respiratory: Shortness of Breath, As per HPI Cardiovascular: As per HPI Gastrointestinal: Nausea, Vomiting, As per HPI Genitourinary: Unremarkable Musculoskeletal: Unremarkable Integumentary: Unremarkable Neurological: Unremarkable Lymphatics: Unremarkable Physical Examination - Physical Exam General: Alert, Oriented x3, Cooperative, Mild distress, Other (Patient with nausea and vomiting upon examination.) HEENT: Atraumatic, Other (Dry mucous membranes noted) Neck: Supple Respiratory: Clear to auscultation bilaterally, Normal air movement Cardiovascular: Normal pulses, Regular rate/rhythm Gastrointestinal: Normal bowel sounds, Soft and benign, Non-distended, No tenderness, No masses, No rebound, No guarding Musculoskeletal: No contractures, No erythema, No tenderness, No warmth Integumentary: Other (Bilateral lower extremity amputations) Neurological: Normal speech, Normal strength at 5/5 x4 extr, Normal tone, Normal affect - Studies Laboratory Data (last 24 hrs) 09/29/19 13:06: WBC 9.6, Hgb 14.1, Hct 42.1, Plt Count 195 09/29/19 12:58: PT 12.2, INR 1.04, APTT 26.7 09/29/19 12:58: Sodium 139, Potassium 3.7, BUN 16, Creatinine 1.06, Glucose 267 H, Total Bilirubin 0.5, AST 23, ALT 18, Alkaline Phosphatase 93, Amylase 10 L, Lipase 24 L Microbiology Data (last 24 hrs): 09/29/19 12:58 Nasopharnyx Influenza Type A Antigen Screen - Final 09/29/19 12:58 Nasopharnyx Influenza Type B Antigen Screen - Final Assessment and Plan - Plan Impression: Arthralgias, cough and shortness of breath secondary to Influenza A Nausea and vomiting likely related to viral syndrome COPD Diabetes mellitus type 2 insulin-dependent with hyperglycemia Hypothyroidism GERD History of bilateral lower extremity amputations Plan: Arthralgias, cough and shortness of breath secondary to Influenza A: Patient admitted for further evaluation and treatment. Will continue with IV fluids, antiemetic therapy. Patient will be started on Tamiflu. Will monitor chest x- ray. Will provide medication for cough, congestion. Will start DVT prophylaxis- Lovenox. Will continue monitor and reassess. Will provide medication for his COPD. Anticipate discharge in the next 48 hr pending clinical improvement. Nausea and vomiting likely related to viral syndrome: Will provide antiemetic therapy. Will also start GERD medication. Will start with a clear liquid diet and advance as tolerated. COPD: No exacerbation noted at this time. Continue with COPD medication. Diabetes mellitus type 2 insulin-dependent with hyperglycemia: Will monitor Accu-Cheks. Will provide sliding scale as needed. Hypothyroidism: Continue with home medication. GERD: Due to nausea vomiting will start Protonix IV. History of bilateral lower extremity amputations: Continue with aspirin. Patient on DVT prophylaxis-Lovenox. Discharge Plan: Home Plan to discharge in: 48 Hours - Advance Directives Does patient have a Living Will: Yes Does patient have a Durable POA for Healthcare: Yes - Code Status/Comfort Care Code Status Assessed: Yes (Patient is full code) Time Spent Managing Pts Care (In Minutes): 55
[2019-09-29] MEDS ORDERED: OSELTAMIVIR 75 MG CAP ONE (14:01)
[2019-09-29] MEDS ORDERED: METHYLPREDNISOLONE 125 MG INJ ONE (14:01)
[2019-09-29] MEDS ORDERED: NA CHLORIDE 0.9% 250 ML ONE (14:02)
[2019-09-29] MEDS ORDERED: AZITHROMYCIN 500 MG INJ IVPB ONE (14:02)
[2019-09-29] MEDS ORDERED: FAMOTIDINE 20 MG/2 ML VIAL IV ONE (14:02)
[2019-09-29] MEDS ORDERED: IBUPROFEN 400 MG TAB ONE (15:18)
[2019-09-29] MEDS ORDERED: IPRATROPIUM BROM 0.5MG/2.5ML NEB PRN (15:59)
[2019-09-29] MEDS: NA CHLORIDE 0.9% 1,000 ML IV SCH (15:59)
[2019-09-29] MEDS ORDERED: ONDANSETRON 4 MG/2 ML VIAL IV PRN (15:59)
[2019-09-29] MEDS ORDERED: SODIUM CHLORIDE 0.9% 10ML INJ IV PRN (15:59)
[2019-09-29] MEDS ORDERED: ACETAMINOPHEN 500 MG TAB PO PRN (15:59)
[2019-09-29] MEDS ORDERED: LEVALBUTEROL 0.63 MG/3 ML NEB NEB PRN (15:59)
[2019-09-29] MEDS: INSULIN -REGULAR HUMAN 50 UNIT/0.5 ML ML SQ SCH ×2 (16:30→20:50)
[2019-09-29] MEDS: ENOXAPARIN 40 MG/0.4 ML SQ SCH (17:24)
[2019-09-29] MEDS: BENZONATATE 100 MG CAP PO PRN (17:24)
[2019-09-29 18:07] VITALS: BMI 24.2
--- NOTE | 2019-09-29 18:45 | EKG ---
Test Date: 2019-09-29 Test Time: 13:13:51 Pull Over Machine Operator: MEASUREMENT RESULTS: Intervals: Rate: 124 DC: 130 QRSD: 98 QT: 328 QTc: 471 [place]: P: 74 DC: 130 QRS: 163 T: 72 INTERPRETIVE STATEMENTS: Sinus tachycardia Biatrial enlargement Right axis deviation Pulmonary disease pattern Incomplete right bundle branch block Nonspecific ST abnormality Abnormal ECG Compared to ECG 05/22/2019 10:24:51 Right-axis deviation now present Incomplete right bundle-branch block now present ST (T wave) deviation now present Right superior axis no longer present Myocardial infarct finding no longer present Electronically Signed On 09-29-19 18:44:11 CLEARING SUPERVISOR by Zachary Ramirez
[2019-09-29] MEDS: ARFORMOTEROL TARTRATE 15 MCG/2 ML VIAL.NEB NEB SCH (20:00)
[2019-09-29] MEDS: OSELTAMIVIR 75 MG CAP PO SCH (20:39)
[2019-09-29] MEDS: GUAIFENESIN 600 MG SA TAB PO SCH (20:39)
[2019-09-29] MEDS: ATORVASTATIN 20 MG TAB PO SCH (20:39)
[2019-09-30] MEDS: NA CHLORIDE 0.9% 1,000 ML IV SCH (01:14)
[2019-09-30] MEDS: BENZONATATE 100 MG CAP PO PRN ×2 (05:17→20:27)
[2019-09-30] MEDS: LEVOTHYROXINE SOD 0.088 MG TAB PO SCH (05:18)
[2019-09-30 06:05] LABS: Absolute Lymphocytes (CBC) 0.8 K/uL (0.7-4.9); Basophils % 0.3 % (0-1.3); Hematocrit 37.1 % (39.6-49.0); Lymphocytes % 9.4 % (15.3-44.8); MPV 9.9 fL (7.6-11.3); RBC Red Blood Cell Count 4.21 M/uL (4.33-5.43)
[2019-09-30 06:11] LABS: Magnesium 2.1 mg/dL (1.8-2.4); Potassium 4.1 mmol/L (3.5-5.1)
--- NOTE | 2019-09-30 06:55 | RAD REPORT ---
EXAM DESCRIPTION: RAD - Chest Single View - 09/30/2019 5:49 am CLINICAL HISTORY: cough COMPARISON: Chest Single View dated 09/29/2019; Chest Single View dated 05/23/2019 TECHNIQUE: AP portable chest image was obtained 09/30/2019 5:49 am . FINDINGS: No new focal lung parenchymal process. Interstitial pattern has not changed. Heart and vas culature are normal. No measurable pleural effusion and no pneumothorax. No acute bony abnormality se en. No acute aortic findings suspected. IMPRESSION: No acute cardiopulmonary process. Stable chest from September 29.
[2019-09-30] MEDS ORDERED: D50W 25 GM/50 ML SYRINGE/VIAL IV PRN (07:44)
[2019-09-30] MEDS ORDERED: GLUCAGON 1 MG/VIAL IM PRN (07:44)
[2019-09-30] MEDS: ARFORMOTEROL TARTRATE 15 MCG/2 ML VIAL.NEB NEB SCH ×2 (07:54→20:15)
[2019-09-30] MEDS: FOLIC ACID 1 MG TABLET PO SCH (08:38)
[2019-09-30] MEDS: ENOXAPARIN 40 MG/0.4 ML SQ SCH (08:38)
[2019-09-30] MEDS: GUAIFENESIN 600 MG SA TAB PO SCH ×2 (08:39→20:27)
[2019-09-30] MEDS: ASCORBIC ACID 500 MG TABLET PO SCH (08:39)
[2019-09-30] MEDS: INSULIN GLARGINE 100 UNITS/ML SQ SCH (08:39)
[2019-09-30] MEDS: ASPIRIN EC 81 MG TAB PO SCH (08:39)
[2019-09-30] MEDS: OSELTAMIVIR 75 MG CAP PO SCH ×2 (08:39→20:27)
[2019-09-30] MEDS: INSULIN -REGULAR HUMAN 50 UNIT/0.5 ML ML SQ SCH ×4 (08:40→21:00)
[2019-09-30] MEDS: BRINZOLAMIDE OPTH SCH ×2 (08:40→21:00)
[2019-09-30] MEDS: BRIMONIDINE TART OPTH SCH ×2 (08:40→21:00)
[2019-09-30] MEDS ORDERED: PANTOPRAZOLE 40 MG INJ IVP SCH (09:00)
--- NOTE | 2019-09-30 09:26 | P.PN ---
Subjective Date of Service: 09/30/19 Primary Care Provider: [facility] Chief Complaint: Cough, body aches Subjective: Improving (Patient has improved. Still with some weakness.) Physical Examination - Vital Signs Temperature: 97.6 F Blood Pressure: 128/48 Pulse: 48 Respirations: 18 Pulse Ox (%): 96 - Physical Exam General: Alert, In no apparent distress, Cooperative HEENT: Atraumatic Neck: Supple Respiratory: Clear to auscultation bilaterally, Normal air movement Cardiovascular: Normal pulses, Regular rate/rhythm Gastrointestinal: Normal bowel sounds, Soft and benign, Non-distended Musculoskeletal: No erythema, No tenderness, No warmth Neurological: Normal speech, Normal strength at 5/5 x4 extr, Normal tone - Studies Laboratory Data (last 24 hrs) 09/29/19 13:06: WBC 9.6, Hgb 14.1, Hct 42.1, Plt Count 195 09/29/19 12:58: PT 12.2, INR 1.04, APTT 26.7 09/29/19 12:58: Sodium 139, Potassium 3.7, BUN 16, Creatinine 1.06, Glucose 267 H, Total Bilirubin 0.5, AST 23, ALT 18, Alkaline Phosphatase 93, Amylase 10 L, Lipase 24 L 09/29/19 12:31: PT Cancelled, INR Cancelled 09/29/19 12:31: WBC Cancelled, Hgb Cancelled, Hct Cancelled, Plt Count Cancelled 09/29/19 12:31: Sodium Cancelled, Potassium Cancelled, BUN Cancelled, Creatinine Cancelled, Glucose Cancelled, Magnesium Cancelled, Total Bilirubin Cancelled, AST Cancelled, ALT Cancelled, Alkaline Phosphatase Cancelled, Lipase Cancelled Microbiology Data (last 24 hrs): 09/29/19 12:58 Nasopharnyx Influenza Type A Antigen Screen - Final 09/29/19 12:58 Nasopharnyx Influenza Type B Antigen Screen - Final Medications List Reviewed: Yes Assessment & Plan Discharge Plan: Home Plan to discharge in: 24 Hours Physician Review Additional Text: Impression: Arthralgias, cough and shortness of breath secondary to Influenza A Nausea and vomiting likely related to viral syndrome Acute renal injury COPD Diabetes mellitus type 2 insulin-dependent with hyperglycemia Hypothyroidism GERD History of bilateral lower extremity amputations Plan: Arthralgias, cough and shortness of breath secondary to Influenza A: Patient has improved. Continue with IV fluids and Tamiflu. Patient on DVT prophylaxis. Will provide medication for cough and congestion. Will provide incentive spirometer. Anticipate improvement over the next 24 hr. Likely home discharge tomorrow. Nausea and vomiting likely related to viral syndrome: Will provide antiemetic therapy. Continue with GERD medication. Patient without nausea this morning. Will advance diet to 2000 ADA diet. Acute renal injury: Continue IV fluids. Will monitor closely. Electrolyte protocol in place. COPD: No exacerbation noted at this time. Continue with COPD medication. Diabetes mellitus type 2 insulin-dependent with hyperglycemia: Will monitor Accu-Cheks. Will provide sliding scale as needed. Hypothyroidism: Continue with home medication. GERD: Will change Protonix to oral. History of bilateral lower extremity amputations: Continue with aspirin. Patient on DVT prophylaxis-Lovenox. Time Spent Managing Pts Care (In Minutes): 55
[2019-09-30] MEDS: NACHLORIDE 0.45% 1,000 ML IV SCH ×2 (09:50→18:47)
[2019-09-30] MEDS ORDERED: CYCLOPENTOLATE 1% OPTH 2 ML OPTH PRN (16:15)
[2019-09-30] MEDS: ATORVASTATIN 20 MG TAB PO SCH (20:27)
[2019-09-30] MEDS ORDERED: HOME MED 1 EA UNK (Simvastatin [Simvastatin] 40 MG) PO SCH (21:00)
[2019-09-30] MEDS ORDERED: NA CHLORIDE 0.9% 500 ML IV ONE (22:48)
[2019-10-01] MEDS ORDERED: HYDROCORTISONE SUC 100 MG INJ IV ONE (00:04)
[2019-10-01] MEDS ORDERED: NA CHLORIDE 0.9% 500 ML IV ONE (00:05)
[2019-10-01] MEDS ORDERED: NA CHLORIDE 0.9% 1,000 ML IV ONE (00:49)
[2019-10-01 01:02] LABS: Absolute Lymphocytes (CBC) 2.4 K/uL (0.7-4.9); Basophils % 0.9 % (0-1.3); Hematocrit 31.9 % (39.6-49.0); Lymphocytes % 26.4 % (15.3-44.8); MPV 9.7 fL (7.6-11.3); RBC Red Blood Cell Count 3.63 M/uL (4.33-5.43)
[2019-10-01 01:11] LABS: Albumin 2.2 g/dL (3.4-5.0); Bilirubin Total 0.2 mg/dL (0.2-1.0); Potassium 3.7 mmol/L (3.5-5.1); Protein, Total 5.6 g/dL (6.4-8.2)
[2019-10-01 05:14] LABS: Basophils % 0.3 % (0-1.3); Lymphocytes % 8.6 % (15.3-44.8); MPV 9.4 fL (7.6-11.3); RBC Red Blood Cell Count 4.05 M/uL (4.33-5.43)
[2019-10-01 05:42] LABS: Magnesium 1.9 mg/dL (1.8-2.4); Potassium 3.9 mmol/L (3.5-5.1)
[2019-10-01] MEDS ORDERED: POTASSIUM 25 MEQ EFFERV TAB PO ONE (05:56)
[2019-10-01] MEDS: NACHLORIDE 0.45% 1,000 ML IV SCH ×2 (06:19→16:29)
[2019-10-01] MEDS: LEVOTHYROXINE SOD 0.088 MG TAB PO SCH (06:20)
[2019-10-01] MEDS: PANTOPRAZOLE 40MG TABLET PO SCH (06:20)
[2019-10-01] MEDS: BENZONATATE 100 MG CAP PO PRN (06:20)
[2019-10-01] MEDS: INSULIN -REGULAR HUMAN 50 UNIT/0.5 ML ML SQ SCH ×4 (07:30→21:47)
[2019-10-01 07:37] LABS: Blood Morphology Comment NOT SEEN (NOT SEEN); Platelet Estimate ADEQ
[2019-10-01] MEDS: ARFORMOTEROL TARTRATE 15 MCG/2 ML VIAL.NEB NEB SCH ×2 (08:00→20:15)
[2019-10-01] MEDS: ASPIRIN EC 81 MG TAB PO SCH (08:30)
[2019-10-01] MEDS: INSULIN GLARGINE 100 UNITS/ML SQ SCH (08:30)
[2019-10-01] MEDS: FOLIC ACID 1 MG TABLET PO SCH (08:30)
[2019-10-01] MEDS: ASCORBIC ACID 500 MG TABLET PO SCH (08:30)
[2019-10-01] MEDS: GUAIFENESIN 600 MG SA TAB PO SCH ×2 (08:30→21:47)
[2019-10-01] MEDS: BRIMONIDINE TART OPTH SCH ×2 (08:31→21:00)
[2019-10-01] MEDS: ENOXAPARIN 40 MG/0.4 ML SQ SCH (08:31)
[2019-10-01] MEDS: BRINZOLAMIDE OPTH SCH ×2 (08:31→21:00)
[2019-10-01] MEDS: OSELTAMIVIR 75 MG CAP PO SCH ×2 (08:33→21:47)
--- NOTE | 2019-10-01 10:24 | RAD REPORT ---
EXAM DESCRIPTION: RAD - Chest Pa And Lat (2 Views) - 10/01/2019 9:55 am CLINICAL HISTORY: follow up Flu COMPARISON: Chest Single View dated 09/30/2019; Chest Single View dated 09/29/2019 TECHNIQUE: Frontal and lateral views of the chest were obtained. FINDINGS: The lungs are fibrotic as a baseline. No consolidated parenchyma seen. Interstitial patter n is increased in the lower right lung field. Heart size is normal and central vasculature is withi n normal limits. No pleural effusion or pneumothorax seen. No acute bony finding noted. No aortic abnormality. IMPRESSION: Right base interstitial pneumonia or interstitial edema superimposed on chronic intersti tial lung disease.
[2019-10-01] MEDS ORDERED: CEFTRIAXONE 1 GM/NS 50 ML 1 GM/50 ML BAG IV SCH (11:20)
[2019-10-01] MEDS ORDERED: AZITHROMYCIN IV 500 MG in NA CHLORIDE 0.9% 250 ML IVPB SCH (11:20)
--- NOTE | 2019-10-01 11:24 | P.PN ---
Subjective Date of Service: 10/01/19 Primary Care Provider: [facility] Chief Complaint: Cough, body aches Subjective: Other (Patient had low blood pressure last night. Patient still feeling slightly fatigued.) Physical Examination - Vital Signs Temperature: 97 F Blood Pressure: 127/59 Pulse: 73 Respirations: 20 Pulse Ox (%): 94 - Physical Exam General: Alert, In no apparent distress, Oriented x3, Cooperative HEENT: Atraumatic Neck: Supple Respiratory: Crackles/rales (Slight crackles to the right base) Cardiovascular: Normal pulses, Regular rate/rhythm Gastrointestinal: Normal bowel sounds, Soft and benign, Non-distended Neurological: Normal speech, Normal strength at 5/5 x4 extr, Normal tone, Normal affect - Studies Laboratory Data (last 24 hrs) 10/01/19 05:01: Sodium 139, Potassium 3.9, BUN 23 H, Creatinine 1.04, Glucose 148 H, Magnesium 1.9 10/01/19 05:01: WBC 11.4 H D, Hgb 11.8 L, Hct 36.0 L, Plt Count 170 10/01/19 00:41: Sodium 139, Potassium 3.7, BUN 26 H, Creatinine 1.20, Glucose 102, Total Bilirubin 0.2, AST 142 H D, ALT 27, Alkaline Phosphatase 59 10/01/19 00:41: WBC 9.1, Hgb 10.7 L, Hct 31.9 L, Plt Count 162 Microbiology Data (last 24 hrs): 09/29/19 13:20 Clean Catch Urine [place] Count - Final <10,000 CFU/ML. 09/29/19 13:20 Clean Catch Urine - Final No growth. 09/29/19 12:58 Blood - Blood Aerobic Blood Culture - Final 09/29/19 12:58 Blood - Blood Blood Culture Gram Stain - Final 09/29/19 12:58 Blood - Blood Anaerobic Blood Culture - Final 09/29/19 12:58 Blood - Blood Anaerobic Blood Culture - Final Medications List Reviewed: Yes Assessment & Plan Discharge Plan: Home Plan to discharge in: 24 Hours Physician Review Additional Text: Impression: Arthralgias, cough and shortness of breath secondary to Influenza A now with likely superimposed right lower lobe pneumonia suspect aspiration Nausea and vomiting likely related to viral syndrome Acute renal injury COPD Diabetes mellitus type 2 insulin-dependent with hyperglycemia Hypothyroidism GERD History of bilateral lower extremity amputations Plan: Arthralgias, cough and shortness of breath secondary to Influenza A now with likely superimposed right lower lobe pneumonia suspect aspiration: Patient had low blood pressure last night. Patient given IV fluid bolus. Pro calcitonin now slightly elevated. Continue IV fluids. Chest x-ray shows possible superimposed right lower lobe pneumonia. Will start Zosyn. This may be aspiration related. Aspiration precaution in place. Will continue with IV fluids, Tamiflu, DVT prophylaxis, and medication for cough and congestion. Anticipate discharge in the next 24-48 hr pending clinical improvement. Nausea and vomiting likely related to viral syndrome: Will provide antiemetic therapy. Continue with GERD medication. Patient without nausea this morning. Will advance diet to 2000 ADA diet. Acute renal injury: Continue IV fluids. Will monitor closely. Electrolyte protocol in place. COPD: No exacerbation noted at this time. Continue with COPD medication. Diabetes mellitus type 2 insulin-dependent with hyperglycemia: Will monitor Accu-Cheks. Will provide sliding scale as needed. Hypothyroidism: Continue with home medication. GERD: Will change Protonix to oral. History of bilateral lower extremity amputations: Continue with aspirin. Patient on DVT prophylaxis-Lovenox. Time Spent Managing Pts Care (In Minutes): 55
[2019-10-01] MEDS: PIPER/TAZO/NS 3.375gm 3.375 GM/100 ML BAG IVPB SCH ×2 (12:14→16:27)
[2019-10-01] MEDS: ATORVASTATIN 20 MG TAB PO SCH (21:47)
[2019-10-02] MEDS: PIPER/TAZO/NS 3.375gm 3.375 GM/100 ML BAG IVPB SCH ×3 (00:27→16:08)
[2019-10-02] MEDS: MELATONIN 5 MG TABLET PO PRN ×2 (00:30→20:31)
[2019-10-02] MEDS: NACHLORIDE 0.45% 1,000 ML IV SCH ×2 (02:00→03:59)
[2019-10-02] MEDS: LEVOTHYROXINE SOD 0.088 MG TAB PO SCH (05:44)
[2019-10-02] MEDS: PANTOPRAZOLE 40MG TABLET PO SCH (05:44)
[2019-10-02] MEDS: BENZONATATE 100 MG CAP PO PRN (05:47)
[2019-10-02 05:58] LABS: Absolute Lymphocytes (CBC) 2.3 K/uL (0.7-4.9); Basophils % 0.5 % (0-1.3); Hematocrit 35.1 % (39.6-49.0); Lymphocytes % 29.5 % (15.3-44.8); Magnesium 1.8 mg/dL (1.8-2.4); Potassium 3.2 mmol/L (3.5-5.1); RBC Red Blood Cell Count 3.97 M/uL (4.33-5.43)
[2019-10-02] MEDS: INSULIN -REGULAR HUMAN 50 UNIT/0.5 ML ML SQ SCH ×4 (07:30→20:32)
[2019-10-02] MEDS: ARFORMOTEROL TARTRATE 15 MCG/2 ML VIAL.NEB NEB SCH ×2 (08:45→20:05)
[2019-10-02] MEDS: BRINZOLAMIDE OPTH SCH ×2 (09:00→20:32)
[2019-10-02] MEDS ORDERED: POTASSIUM CL SA 10 MEQ TAB PO ONE (09:00)
[2019-10-02] MEDS: BRIMONIDINE TART OPTH SCH ×2 (09:00→20:32)
[2019-10-02] MEDS ORDERED: MAGNESIUM SULFATE 1 gm IVPB 1 GM/100 ML BAG IV ONE (09:00)
[2019-10-02] MEDS: INSULIN GLARGINE 100 UNITS/ML SQ SCH (09:07)
[2019-10-02] MEDS: ENOXAPARIN 40 MG/0.4 ML SQ SCH (09:08)
[2019-10-02] MEDS: GUAIFENESIN 600 MG SA TAB PO SCH ×2 (09:08→20:31)
[2019-10-02] MEDS: FOLIC ACID 1 MG TABLET PO SCH (09:08)
[2019-10-02] MEDS: ASCORBIC ACID 500 MG TABLET PO SCH (09:08)
[2019-10-02] MEDS: ASPIRIN EC 81 MG TAB PO SCH (09:08)
[2019-10-02] MEDS: OSELTAMIVIR 75 MG CAP PO SCH ×2 (09:09→20:32)
--- NOTE | 2019-10-02 11:39 | P.PN ---
Subjective Date of Service: 10/02/19 Primary Care Provider: [facility] Chief Complaint: Cough, body aches Subjective: Improving Physical Examination - Vital Signs Temperature: 99.5 F Blood Pressure: 144/67 Pulse: 80 Respirations: 18 Pulse Ox (%): 95 - Physical Exam General: Alert, In no apparent distress, Oriented x3, Cooperative HEENT: Atraumatic Neck: Supple Respiratory: Clear to auscultation bilaterally, Other (Better air movement bilateral) Cardiovascular: Normal pulses, Regular rate/rhythm Gastrointestinal: Normal bowel sounds, Soft and benign, Non-distended Musculoskeletal: No erythema, No tenderness, No warmth Neurological: Normal speech, Normal strength at 5/5 x4 extr, Normal tone - Studies Microbiology Data (last 24 hrs): 10/01/19 00:47 Blood - Blood Anaerobic Blood Culture - Final 10/01/19 00:41 Blood - Blood Anaerobic Blood Culture - Final 09/29/19 13:20 Clean Catch Urine [place] Count - Final <10,000 CFU/ML. 09/29/19 13:20 Clean Catch Urine - Final No growth. 09/29/19 12:58 Blood - Blood Aerobic Blood Culture - Final 09/29/19 12:58 Blood - Blood Blood Culture Gram Stain - Final 09/29/19 12:58 Blood - Blood Anaerobic Blood Culture - Final Medications List Reviewed: Yes Assessment & Plan Discharge Plan: Home Plan to discharge in: 24 Hours Physician Review Additional Text: Impression: Arthralgias, cough and shortness of breath secondary to Influenza A now with likely superimposed right lower lobe pneumonia suspect aspiration Nausea and vomiting likely related to viral syndrome Acute renal injury COPD Diabetes mellitus type 2 insulin-dependent with hyperglycemia Hypothyroidism GERD History of bilateral lower extremity amputations Plan: Arthralgias, cough and shortness of breath secondary to Influenza A now with likely superimposed right lower lobe pneumonia suspect aspiration: Patient continues to improve with IV antibiotic therapy. Continue IV fluids. Encourage oral intake. Will wean off oxygen to maintain sats above 93%. Will reassess later today. If significantly improved patient can be discharge today if not tomorrow. Nausea and vomiting likely related to viral syndrome: Will provide antiemetic therapy. Continue with GERD medication. Patient without nausea this morning. Will advance diet to 2000 ADA diet. Acute renal injury: Continue IV fluids. Will need to transition from IV fluids to oral. Will monitor closely. Electrolyte protocol in place. COPD: No exacerbation noted at this time. Continue with COPD medication. Diabetes mellitus type 2 insulin-dependent with hyperglycemia: Will monitor Accu-Cheks. Will provide sliding scale as needed. Hypothyroidism: Continue with home medication. GERD: Will change Protonix to oral. History of bilateral lower extremity amputations: Continue with aspirin. Patient on DVT prophylaxis-Lovenox. Time Spent Managing Pts Care (In Minutes): 55
[2019-10-02] MEDS ORDERED: NACHLORIDE 0.45% 1,000 ML IV SCH (12:00)
--- NOTE | 2019-10-02 15:10 | RAD REPORT ---
EXAM DESCRIPTION: [facility] Single View10/02/2019 2:57 pm CLINICAL HISTORY: Shortness of breath COMPARISON: October 01 FINDINGS: Worsening in right and development of left basilar opacities. Lungs are hyperaerated. Small pleural effusions suspected Heart is normal size IMPRESSION: Worsening in right in development of left basilar pulmonary opacities could either repre sent pulmonary edema or pneumonia
[2019-10-02] MEDS ORDERED: TRAMADOL HCL 50 MG TAB PO PRN (17:56)
[2019-10-02] MEDS: ATORVASTATIN 20 MG TAB PO SCH (20:31)
[2019-10-03] MEDS: PIPER/TAZO/NS 3.375gm 3.375 GM/100 ML BAG IVPB SCH ×3 (00:29→16:36)
[2019-10-03 05:18] LABS: BUN Blood Urea Nitrogen 11 mg/dL (7-18); Bicarbonate 23 mmol/L (21-32); Glucose Level 181 mg/dL (74-106); Potassium 3.9 mmol/L (3.5-5.1); Sodium Level 139 mmol/L (136-145)
[2019-10-03] MEDS: LEVOTHYROXINE SOD 0.088 MG TAB PO SCH (05:34)
[2019-10-03] MEDS: INSULIN -REGULAR HUMAN 50 UNIT/0.5 ML ML SQ SCH ×4 (07:30→21:00)
[2019-10-03] MEDS ORDERED: FUROSEMIDE 20 MG/ 2ML VIAL IV ONE (08:00)
[2019-10-03] MEDS: INSULIN GLARGINE 100 UNITS/ML SQ SCH (08:33)
[2019-10-03] MEDS: FOLIC ACID 1 MG TABLET PO SCH (08:35)
[2019-10-03] MEDS: ASCORBIC ACID 500 MG TABLET PO SCH (08:35)
[2019-10-03] MEDS: OSELTAMIVIR 75 MG CAP PO SCH ×2 (08:35→21:56)
[2019-10-03] MEDS: ASPIRIN EC 81 MG TAB PO SCH (08:35)
[2019-10-03] MEDS: GUAIFENESIN 600 MG SA TAB PO SCH ×2 (08:35→21:58)
[2019-10-03] MEDS: DOCUSATE NA 100 MG CAP PO SCH ×3 (08:36→21:56)
[2019-10-03] MEDS: PANTOPRAZOLE 40MG TABLET PO SCH (08:36)
[2019-10-03] MEDS: ENOXAPARIN 40 MG/0.4 ML SQ SCH (08:36)
[2019-10-03] MEDS: BRIMONIDINE TART OPTH SCH ×2 (09:00→21:00)
[2019-10-03] MEDS: BRINZOLAMIDE OPTH SCH ×2 (09:00→21:00)
[2019-10-03] MEDS ORDERED: POTASSIUM CL SA 10 MEQ TAB PO ONE (09:00)
--- NOTE | 2019-10-03 11:02 | P.PN ---
Subjective Date of Service: 10/03/19 Primary Care Provider: [facility] Chief Complaint: Cough, body aches Subjective: Improving (Patient improved. Less cough noted. Better inspiration and expiration.) Physical Examination - Vital Signs Temperature: 97.8 F Blood Pressure: 112/51 Pulse: 80 Respirations: 19 Pulse Ox (%): 94 - Physical Exam General: Alert, In no apparent distress, Oriented x3, Cooperative HEENT: Atraumatic Neck: Supple Respiratory: Other (Less congestion noted. Less wheezing noted. Improved since yesterday.) Cardiovascular: Normal pulses, Regular rate/rhythm Gastrointestinal: Normal bowel sounds, Soft and benign, Non-distended, No tenderness, No masses, No rebound, No guarding Neurological: Normal speech, Normal strength at 5/5 x4 extr, Normal tone, Normal affect - Studies Microbiology Data (last 24 hrs): 10/01/19 00:47 Blood - Blood Anaerobic Blood Culture - Final 10/01/19 00:41 Blood - Blood Anaerobic Blood Culture - Final Medications List Reviewed: Yes Assessment & Plan Discharge Plan: Home Plan to discharge in: 24 Hours Physician Review Additional Text: Impression: Arthralgias, cough and shortness of breath secondary to Influenza A now with likely superimposed right lower lobe pneumonia suspect aspiration Nausea and vomiting likely related to viral syndrome Acute renal injury COPD Diabetes mellitus type 2 insulin-dependent with hyperglycemia Hypothyroidism GERD History of bilateral lower extremity amputations Plan: Arthralgias, cough and shortness of breath secondary to Influenza A now with likely superimposed right lower lobe pneumonia suspect aspiration: Patient continues to improve. Continue IV antibiotic therapy. IV fluids discontinued yesterday. Some congestion noted. Will give 1 dose of Lasix IV today. Will continue to reassess. Wean off oxygen. Once off oxygen and will plan for discharge. Will reassess later today. Possible discharge later today if not tomorrow with clinical improvement. Nausea and vomiting likely related to viral syndrome: Will provide antiemetic therapy. Continue with GERD medication. Patient without nausea this morning. Diet has been advanced Acute renal injury: IV fluids discontinued yesterday. Continue oral intake. COPD: Continue with COPD medication. Diabetes mellitus type 2 insulin-dependent with hyperglycemia: Will monitor Accu-Cheks. Will provide sliding scale as needed. Hypothyroidism: Continue with home medication. GERD: Continue Protonix. History of bilateral lower extremity amputations: Continue with aspirin. Patient on DVT prophylaxis-Lovenox. Time Spent Managing Pts Care (In Minutes): 55
[2019-10-03] MEDS: ARFORMOTEROL TARTRATE 15 MCG/2 ML VIAL.NEB NEB SCH ×2 (14:31→20:20)
[2019-10-03] MEDS: ATORVASTATIN 20 MG TAB PO SCH (21:56)
[2019-10-04] MEDS: PIPER/TAZO/NS 3.375gm 3.375 GM/100 ML BAG IVPB SCH ×2 (00:01→09:00)
[2019-10-04] MEDS: LEVOTHYROXINE SOD 0.088 MG TAB PO SCH (05:45)
[2019-10-04 06:03] LABS: BUN Blood Urea Nitrogen 9 mg/dL (7-18); Bicarbonate 27 mmol/L (21-32); Glucose Level 166 mg/dL (74-106); Potassium 3.6 mmol/L (3.5-5.1); Sodium Level 140 mmol/L (136-145)
[2019-10-04] MEDS: INSULIN -REGULAR HUMAN 50 UNIT/0.5 ML ML SQ SCH ×4 (07:30→20:17)
[2019-10-04 08:05] LABS: Hematocrit 39.3 % (39.6-49.0); Lymphocytes % 29.1 % (15.3-44.8); RBC Red Blood Cell Count 4.49 M/uL (4.33-5.43)
[2019-10-04] MEDS: ARFORMOTEROL TARTRATE 15 MCG/2 ML VIAL.NEB NEB SCH ×2 (08:25→20:00)
--- NOTE | 2019-10-04 08:25 | P.PN ---
Subjective Date of Service: 10/04/19 Primary Care Provider: [facility] Chief Complaint: Cough, body aches Subjective: Improving (Still with some cough.) Physical Examination - Vital Signs Temperature: 97.4 F Blood Pressure: 142/65 Pulse: 73 Respirations: 18 Pulse Ox (%): 96 - Physical Exam General: Alert, In no apparent distress, Oriented x3 HEENT: Atraumatic Neck: Supple Respiratory: Clear to auscultation bilaterally, Normal air movement Cardiovascular: Normal pulses, Regular rate/rhythm Gastrointestinal: Normal bowel sounds, Soft and benign, Non-distended, No masses , No rebound, No guarding Musculoskeletal: No tenderness, No warmth - Studies Medications List Reviewed: Yes Assessment & Plan Discharge Plan: Home Plan to discharge in: 24 Hours Physician Review Additional Text: Impression: Arthralgias, cough and shortness of breath secondary to Influenza A now with likely superimposed right lower lobe pneumonia suspect aspiration Nausea and vomiting likely related to viral syndrome Acute renal injury COPD Diabetes mellitus type 2 insulin-dependent with hyperglycemia Hypothyroidism GERD History of bilateral lower extremity amputations Plan: Arthralgias, cough and shortness of breath secondary to Influenza A now with likely superimposed right lower lobe pneumonia suspect aspiration: Patient continues to improve. Will recheck chest x-ray today along with pro calcitonin and CBC. If able to wean off oxygen today then will consider discharge today. If not will need to arrange for home oxygen, this will likely need to be arranged tomorrow with social service. Will continue to assess. Nausea and vomiting likely related to viral syndrome: No significant nausea or vomiting noted. Continue medication for GERD. Acute renal injury: Resolved. Continue oral intake. COPD: Continue with COPD medication. Patient may require home oxygen at discharge. Will try to wean off oxygen today. If so patient can be discharge. If not home oxygen will have to be arranged tomorrow with the help of dialysis social worker. Diabetes mellitus type 2 insulin-dependent with hyperglycemia: Will monitor Accu-Cheks. Will provide sliding scale as needed. Hypothyroidism: Continue with home medication. GERD: Continue Protonix. History of bilateral lower extremity amputations: Continue with aspirin. Patient on DVT prophylaxis-Lovenox. Time Spent Managing Pts Care (In Minutes): 55
--- NOTE | 2019-10-04 08:28 | RAD REPORT ---
EXAM DESCRIPTION: RAD - Chest Single View - 10/04/2019 8:19 am CLINICAL HISTORY: follow up pneumonia COMPARISON: Chest Single View dated 10/02/2019; Chest Pa And Lat (2 Views) dated 10/01/2019 TECHNIQUE: AP portable chest image was obtained 10/04/2019 8:19 am . FINDINGS: No focal mass or consolidation. Bilateral lung base interstitial opacification has substan tially improved. Minimal remnant noted. Heart and vasculature are normal. No measurable pleural effus ion and no pneumothorax. No acute bony abnormality seen. No acute aortic findings suspected. IMPRESSION: Significant improvement in the bilateral lung base opacification since October 02.
[2019-10-04] MEDS: BRIMONIDINE TART OPTH SCH ×2 (09:00→20:15)
[2019-10-04] MEDS ORDERED: POTASSIUM CL SA 10 MEQ TAB PO ONE (09:00)
[2019-10-04] MEDS: BRINZOLAMIDE OPTH SCH ×2 (09:00→20:15)
[2019-10-04] MEDS: PANTOPRAZOLE 40MG TABLET PO SCH (09:17)
[2019-10-04] MEDS: OSELTAMIVIR 75 MG CAP PO SCH ×2 (09:17→20:13)
[2019-10-04] MEDS: FOLIC ACID 1 MG TABLET PO SCH (09:18)
[2019-10-04] MEDS: DOCUSATE NA 100 MG CAP PO SCH ×2 (09:18→20:14)
[2019-10-04] MEDS: GUAIFENESIN 600 MG SA TAB PO SCH ×2 (09:19→20:16)
[2019-10-04] MEDS: ASCORBIC ACID 500 MG TABLET PO SCH (09:19)
[2019-10-04] MEDS: INSULIN GLARGINE 100 UNITS/ML SQ SCH (09:19)
[2019-10-04] MEDS: ASPIRIN EC 81 MG TAB PO SCH (09:19)
[2019-10-04] MEDS: ENOXAPARIN 40 MG/0.4 ML SQ SCH (09:19)
[2019-10-04] MEDS: AMOX/K CLAV 500 MG TAB PO SCH (20:13)
[2019-10-04] MEDS: ATORVASTATIN 20 MG TAB PO SCH (20:14)
[2019-10-04] MEDS: MELATONIN 5 MG TABLET PO PRN (20:19)
[2019-10-05 05:59] LABS: BUN Blood Urea Nitrogen 9 mg/dL (7-18); Bicarbonate 27 mmol/L (21-32); Magnesium 1.9 mg/dL (1.8-2.4); Potassium 3.6 mmol/L (3.5-5.1); Sodium Level 143 mmol/L (136-145)
[2019-10-05 06:08] LABS: Glucose Level 41 mg/dL (74-106)
[2019-10-05] MEDS: LEVOTHYROXINE SOD 0.088 MG TAB PO SCH (06:13)
[2019-10-05] MEDS: ARFORMOTEROL TARTRATE 15 MCG/2 ML VIAL.NEB NEB SCH (07:45)
[2019-10-05] MEDS: ASPIRIN EC 81 MG TAB PO SCH (08:26)
[2019-10-05] MEDS: ASCORBIC ACID 500 MG TABLET PO SCH (08:26)
[2019-10-05] MEDS: AMOX/K CLAV 500 MG TAB PO SCH (08:27)
[2019-10-05] MEDS: GUAIFENESIN 600 MG SA TAB PO SCH (08:27)
[2019-10-05] MEDS: FOLIC ACID 1 MG TABLET PO SCH (08:27)
[2019-10-05] MEDS: PANTOPRAZOLE 40MG TABLET PO SCH (08:27)
[2019-10-05] MEDS: DOCUSATE NA 100 MG CAP PO SCH (08:27)
[2019-10-05] MEDS: INSULIN -REGULAR HUMAN 50 UNIT/0.5 ML ML SQ SCH ×2 (08:28→12:18)
[2019-10-05] MEDS: BRINZOLAMIDE OPTH SCH (08:28)
[2019-10-05] MEDS: ENOXAPARIN 40 MG/0.4 ML SQ SCH (08:28)
[2019-10-05] MEDS: BRIMONIDINE TART OPTH SCH (08:28)
[2019-10-05] MEDS: INSULIN GLARGINE 100 UNITS/ML SQ SCH (08:29)
[2019-10-05] MEDS ORDERED: POTASSIUM CL SA 10 MEQ TAB PO ONE (09:00)
--- NOTE | 2019-10-05 09:07 | P.DS ---
Admission Date: 10/01/19 Discharge Date: 10/05/19 Primary Care Provider: [facility] Disposition: DC HOME/HOME HEALTH CARE Discharge Condition: GOOD Reason for Admission: Cough, body aches Consultations: None Procedures: Follow up CXR: FINDINGS: No focal mass or consolidation. Bilateral lung base interstitial opacification has substantially improved. Minimal remnant noted. Heart and vasculature are normal. No measurable pleural effusion and no pneumothorax. No acute bony abnormality seen. No acute aortic findings suspected. IMPRESSION: Significant improvement in the bilateral lung base opacification since October 02. Medical Problem List: Arthralgias, cough and shortness of breath secondary to Influenza A now with likely superimposed right lower lobe pneumonia suspect aspiration Nausea and vomiting likely related to viral syndrome Acute renal injury COPD Diabetes mellitus type 2 insulin-dependent with hyperglycemia Hypothyroidism GERD History of bilateral lower extremity amputations Brief History of Present Illness: 64-year-old male with history of COPD, diabetes, and below-knee amputations. Patient presented with cough, congestion, and runny nose. Symptoms have started over the past week. Symptoms have been getting worse. Multiple members of the family have been sick. He start to have some body aches today with mild fever. Some shortness of breath also noted. He came to the ER for further evaluation. In the ER patient was slightly tachypneic. Room-air saturations within normal range. Chest x-ray showed no evidence of pneumonia. White count 9.6, hemoglobin 14. Platelet count of 195. Lactic acid within normal range. Urinalysis unremarkable. Blood sugar 258. Patient was positive for influenza A. Patient was admitted for further evaluation and observation. When I saw the patient ER, he reported some nausea and vomiting. Body aches, weakness and fatigue also noted. Hospital Course: Patient presented with arthralgias, cough and shortness of breath. Patient was found to have influenza a. Patient was admitted for observation and treatment. During the course of his stay his condition did not improve quickly. Patient was found to have superimposed right lower lobe pneumonia likely from aspiration as he had some nausea and vomiting early in his evaluation. The patient was treated with IV antibiotic therapy, oxygen. Patient improved. Patient has received his full course of Tamiflu. At discharge patient requires home oxygen. Patient with underlying COPD. At discharge she will continue with Augmentin 500 mg twice daily, Mucinex 600 mg twice daily as needed for congestion and Tessalon Perles 100 mg 3 times a day as needed for cough. Recommend to recheck chest x-ray in 2-4 weeks to monitor resolution. Prior to discharge patient will continue with home health and physical therapy at discharge. Prior to discharge home oxygen will be arranged. Patient with underlying COPD. As mentioned above patient will require home oxygen at discharge. He is to maintain room-air saturations above 93%. This can be weaned off. Recommend to continue with Symbicort 2 puffs twice daily and Pro air 2 puffs 3 times a day as needed for shortness of breath. Recommend follow up with pulmonology in 1-2 weeks to follow up this hospitalization and continue his care. Patient had acute renal injury due to nausea and vomiting. This has resolved. Patient with underlying diabetes mellitus type 2 insulin-dependent with hyperglycemia. Patient continued with insulin therapy. This has remained stable. At discharge she will continue with his current regimen of Lantus 5 units subcu at bedtime. Recommend to maintain blood sugars less 140 fasting and less than 200 after meals. Further adjustment can be done by his PCP. Patient with hypothyroidism. This has remained stable. At discharge she will continue with levothyroxine 88 mcg daily. Patient with underlying GERD. Will recommend to start Protonix 40 mg daily. Patient may benefit with GI evaluation as an outpatient. Patient with chronic constipation. Will recommend to continue with docusate 100 mg twice daily as a stool softener. Patient may also use lactulose twice daily as needed for constipation. Patient with history of bilateral lower extremity amputations. Fall precautions in place. Patient will continue with home health and physical therapy at discharge. Vital Signs/Physical Exam: Temp Pulse Resp BP Pulse Ox 97.6 F 80 18 121/57 L 95 10/05/19 04:00 10/05/19 04:00 10/05/19 04:00 10/05/19 04:00 10/05/19 04:00 General: Alert, In no apparent distress, Oriented x3, Cooperative HEENT: Atraumatic Neck: Supple Respiratory: Clear to auscultation bilaterally, Normal air movement Cardiovascular: Normal pulses, Regular rate/rhythm Gastrointestinal: Normal bowel sounds, Soft and benign, Non-distended Integumentary: Other (Patient with bilateral lower extremity amputations) Neurological: Normal speech, Normal strength at 5/5 x4 extr, Normal tone, Normal affect Laboratory Data at Discharge: WBC 7.0 K/uL (4.3-10.9) 10/04/19 07:56 Hgb 12.8 g/dL (13.6-17.9) L 10/04/19 07:56 Hct 39.3 % (39.6-49.0) L 10/04/19 07:56 Plt Count 180 K/uL (152-406) 10/04/19 07:56 PT 12.2 SECONDS (9.5-12.5) 09/29/19 12:58 INR 1.04 09/29/19 12:58 APTT 26.7 SECONDS (24.3-36.9) 09/29/19 12:58 Sodium 143 mmol/L (136-145) 10/05/19 05:01 Potassium 3.6 mmol/L (3.5-5.1) 10/05/19 05:01 BUN 9 mg/dL (7-18) 10/05/19 05:01 Creatinine 0.77 mg/dL (0.55-1.3) 10/05/19 05:01 Glucose 41 mg/dL (74-106) L* 10/05/19 05:01 Magnesium 1.9 mg/dL (1.8-2.4) 10/05/19 05:01 Total Bilirubin 0.2 mg/dL (0.2-1.0) 10/01/19 00:41 AST 142 U/L (15-37) H D 10/01/19 00:41 ALT 27 U/L (12-78) 10/01/19 00:41 Alkaline Phosphatase 59 U/L (45-117) 10/01/19 00:41 Amylase 10 U/L (25-115) L 09/29/19 12:58 Lipase 24 U/L (73-393) L 09/29/19 12:58 Home Medications: Brinzolamide/Brimonidine Tart [Simbrinza 1%-0.2% Eye Drops] 1 gtt OPTH BID 09/29 Cyclopentolate 1% [Cyclogyl 1%*] 1 gtt OPTH DAILY PRN 09/29/19 Levothyroxine [Synthroid*] 1 tab PO [id number] 09/29/19 Simvastatin 40 mg PO BEDTIME 09/29/19 Albuterol Inhaler [Ventolin Inhaler*] 2 puff IH TID PRN #1 hfa.aer.ad 10/05/19 Amox/Clavulanate [Augmentin 500-125 mg Tab*] 500 mg PO BID #14 tab 10/05/19 Aspirin [Aspirin EC 81 MG] 81 mg PO DAILY #90 tablet. 10/05/19 Benzonatate [Tessalon Perle*] 100 mg PO TID PRN #15 cap 10/05/19 Budesonide/Formoterol Fumarate [Symbicort 160-4.5 Mcg Inhaler] 2 puff IH BID #1 hfa.aer.ad 10/05/19 Docusate [Colace Cap*] 100 mg PO BID #60 cap 10/05/19 Folic Acid 1 mg PO DAILY #90 tablet 10/05/19 Guaifenesin [Mucinex] 600 mg PO BID PRN #15 tab.er.12h 10/05/19 Insulin Glargine Human [Lantus*] 5 units SQ DAILY WITH BREAKFAST #1 bottle 10/05 Lactulose 15 ml PO BID PRN #1 bottle 10/05/19 Pantoprazole [Protonix Tab*] 40 mg PO ACB #30 tab 10/05/19 New Medications: Albuterol Inhaler [Ventolin Inhaler*] 2 puff IH TID PRN #1 hfa.aer.ad PRN Reason: Shortness Of Breath Amox/Clavulanate [Augmentin 500-125 mg Tab*] 500 mg PO BID #14 tab Aspirin [Aspirin EC 81 MG] 81 mg PO DAILY #90 tablet. Benzonatate [Tessalon Perle*] 100 mg PO TID PRN #15 cap PRN Reason: Cough Budesonide/Formoterol Fumarate [Symbicort 160-4.5 Mcg Inhaler] 2 puff IH BID #1 hfa.aer.ad Docusate [Colace Cap*] 100 mg PO BID #60 cap Folic Acid 1 mg PO DAILY #90 tablet Guaifenesin [Mucinex] 600 mg PO BID PRN #15 tab.er.12h PRN Reason: Cough Insulin Glargine Human [Lantus*] 5 units SQ DAILY WITH BREAKFAST #1 bottle Lactulose 15 ml PO BID PRN #1 bottle PRN Reason: Constipation Pantoprazole [Protonix Tab*] 40 mg PO ACB #30 tab Patient Discharge Instructions: 1. Recommend follow up with his PCP in 1-2 weeks to follow up this hospitalization. 2. Patient presented with arthralgias , cough and shortness of breath. Patient was found to have influenza a. Patient was admitted for observation and treatment. During the course of his stay his condition did not improve quickly. Patient was found to have superimposed right lower lobe pneumonia likely from aspiration as he had some nausea and vomiting early in his evaluation. The patient was treated with IV antibiotic therapy, oxygen. Patient improved. Patient has received his full course of Tamiflu. At discharge patient requires home oxygen. Patient with underlying COPD. At discharge she will continue with Augmentin 500 mg twice daily, Mucinex 600 mg twice daily as needed for congestion and Tessalon Perles 100 mg 3 times a day as needed for cough. Recommend to recheck chest x-ray in 2 -4 weeks to monitor resolution. Prior to discharge patient will continue with home health and physical therapy at discharge. Prior to discharge home oxygen will be arranged. 3. Patient with underlying COPD. As mentioned above patient will require home oxygen at discharge. He is to maintain room-air saturations above 93%. This can be weaned off. Recommend to continue with Symbicort 2 puffs twice daily and Pro air 2 puffs 3 times a day as needed for shortness of breath. Recommend follow up with pulmonology in 1-2 weeks to follow up this hospitalization and continue his care. 4. Patient had acute renal injury due to nausea and vomiting. This has resolved. 5. Patient with underlying diabetes mellitus type 2 insulin-dependent with hyperglycemia. Patient continued with insulin therapy. This has remained stable. At discharge she will continue with his current regimen of Lantus 5 units subcu at bedtime. Recommend to maintain blood sugars less 140 fasting and less than 200 after meals. Further adjustment can be done by his PCP. 6. Patient with hypothyroidism. This has remained stable. At discharge she will continue with levothyroxine 88 mcg daily. 7. Patient with underlying GERD. Will recommend to start Protonix 40 mg daily. Patient may benefit with GI evaluation as an outpatient. 8. Patient with chronic constipation. Will recommend to continue with docusate 100 mg twice daily as a stool softener. Patient may also use lactulose twice daily as needed for constipation. 9. Patient with history of bilateral lower extremity amputations. Fall precautions in place. Patient will continue with home health and physical therapy at discharge. Diet: ADA Activity: Ad ajye Time spent managing pt's care (in minutes): 55
[2019-10-05 13:13] VITALS: O2SAT 93
[2019-10-05 14:28] VITALS: BP 92/42; TEMP 98
== END 2019-10-05 13:54 | disposition home health service (06) | DRG 178 ==
LOC: ER 12:14 → ERHOLD 13:43 → 2ND 15:25 → OBSVTOIN 10-01 08:41
PROVIDERS: ADMIT Family Medicine; ATTEND Family Medicine
DX: J69.0 Pneumonitis due to inhalation of food and vomit (principal); J44.0 Chronic obstructive pulmonary disease with (acute) lower respiratory infection; N17.9 Acute kidney failure, unspecified; J11.00 Influenza due to unidentified influenza virus with unspecified type of pneumonia; E03.9 Hypothyroidism, unspecified; I25.10 Atherosclerotic heart disease of native coronary artery without angina pectoris; E78.5 Hyperlipidemia, unspecified; E11.65 Type 2 diabetes mellitus with hyperglycemia; R11.2 Nausea with vomiting, unspecified; Z89.512 Acquired absence of left leg below knee; Z89.511 Acquired absence of right leg below knee; Z95.5 Presence of coronary angioplasty implant and graft; Z87.891 Personal history of nicotine dependence; K21.9 Gastro-esophageal reflux disease without esophagitis
CPT/HCPCS: 36415; 51702; 71045; 71046; 80048; 80053; 80076; 81003; 81015; 82150; 82550; 82553; 82947; 83605; 83690; 83735; 84132; 84145; 84484; 85025; 85610; 85730; 87040; 87070; 87086; 87088; 87205; 87804; 93005; 96361; 96365; 96375; 99285; C9113; G0378; J0456; J0696; J1650; J1720; J1815; J1940; J2405; J2543; J2930; J3475; J7030; J7040; J7605

== ENCOUNTER 2020-07-20 21:35 | Emergency (ER) | payer OTHER ==
[2012-02-11 04:12] VITALS: BP 139/68
--- OUTSIDE RECORDS SUMMARY | 2020-07-20 21:37 | XMS REPORT | Continuity of Care Document ---
:1955 [facility] t Address [address] [place] [address] Care Team Providers Name Role Phone Sharpdhruv Primary Care Physician Kartik JACOB Attending Clinician Unavailable Kartik JACOB Admitting Clinician Unavailable Advance Directives Directive Decision Effective Date Termination Date Comments Sour ce Partial Code This Yes 2017-01-30 2017-02-[address] [facility] - code status was 00:00:00 00:00:00 Medical C enter determined by: Patient Drug Protocol After Arrest Occurs? Yes Mechanical Ventilation with Intubation? No Bag/Mask? No Internal/External Pacemaker? No Transfer to Critical Care? No Chest Compressions? No Defibrillation/Card ioversion? No Problems Condition Condition Condition Status Onset Resolution Last Treating Co mments Source Name Details Category Date Date Treatment Clinician Date Carotid Carotid Disease Active [facility] stenosis stenosis [facility] History of History of Disease Active [facility] coronary coronary 6-16 [facility] - artery artery 00:00: Medical disease disease 00 Center PVD PVD Disease Active [facility] (periphera (periphera 6-16 [facility] - l vascular l vascular 00:00: Me dical disease) disease) 00 Center COPD COPD Disease Active [facility] (chronic (chronic 6-16 [facility] - obstructiv obstructiv 00:00: Me dical e e 00 Center pulmonary pulmonary disease) disease) DM DM Disease Active [facility] (diabetes (diabetes 6-16 [facility] - mellitus) mellitus) 00:00: Medi iron 00 Center Hypothyroi Hypothyroi Disease Active [facility] dism dism 6-16 [facility] - [facility] 00 Center History of History of Disease Active [facility] below knee below knee 6-16 [facility] - amputation amputation 00:00: Me dical , right: , right: 00 Center in 2014 in 2014 History of History of Disease Active [facility] above knee above knee 6-16 [facility] - amputation amputation 00:00: Me dical , left: in , left: in 00 Ce nter 2005 2006 Dizziness Dizziness Disease Active [facility] 6-15 [facility] 00[facility] 00 Center TIA TIA Disease Active [facility] (transient (transient 6-14 [facility] - ischemic ischemic 00:00: Medica l attack) attack) 00 Center Allergies, Adverse Reactions, Alerts This patient has no known allergies or adverse reactions. Family History Family Member Diagnosis Comments Start Date Stop Date Source Natural father Heart disease [facility] Social History Social Habit Start Date Stop Date Quantity Comments Source Sex Assigned At [facility] Cigarettes smoked 2017-02-03 2017-02-03 [facility] - current (pack per 00:00:00 00:00:00 [facility] day) - Reported Cigarette 2017-02-03 2017-02-03 [facility] - pack-years 00:00:00 00:00:00 [facility] Alcohol intake 2017-02-03 2017-02-03 Current [facility] es - 00:00:00 00:00:00 non-drinker of [facility] nter alcohol (finding) History of tobacco 2011-09-[address] [facility] - use 00:00:00 [facility] Smoking Status Start Date Stop Date Source Former smoker 2017-02-03 00:00:00 2017-02-03 00:00:00 [facility] Medications Ordered Filled Start Stop Current Ordering Indication Dosage Frequency Signature Comments Components Source Medication Medication Date Date Medication? Clinician (SIG) Name Name aspirin 81 Yes 81mg QD Take [address] MG EC 6-16 by mouth [facility] - tablet 16:08: daily. [address] gabapentin Yes 300mg [id number] Take [address] [address] (NEURONTIN) 6-16 [id number] mg by L ukes - 300 MG 16:08: 3D mouth 3 Medical capsule 11 (three) Center times daily. levothyroxi 2017- Yes 100ug Take [address] ne 6-16 mcg by [facility] - (SYNTHROID, 16:08: mouth Medic al LEVOTHROID) 11 Every Center 100 MCG morning on tablet an empty stomach. simvastatin 2017 Yes 40mg QD Take [address] (ZOCOR) 40 6-16 by mouth [facility] - MG tablet 16:08: nightly. Medi iron 11 Center ticagrelor 2017-0 Yes Q.5D Take by [facility] (BRILINTA) 6-16 mouth 2 [facility] - 90 mg Tab 16:08: (two) Medical tablet 11 times Center daily. albuterol 2016- Yes Inhale by [facility] HFA 6-16 mouth via [facility] - (VENTOLIN 16:08: inhaler Medic al HFA) 90 11 every 6 Center mcg/actuati (six) on inhaler hours as needed for Wheezing . budesonide- Yes 2{puff} Q.5D Inhale [address] formoterol 6-16 puffs by [facility] - (SYMBICORT) 16:08: mouth via M edical 160-4.5 11 inhaler 2 Center mcg/actuati (two) on inhaler times daily. brinzolamid 2016- Yes 1[drp] [id number] Place [address] e (AZOPT) 1 6-16 [id number] drop into [facility] - % 16:08: 3D both eyes Medical ophthalmic 11 3 (three) Cent er suspension times daily. latanoprost 2017 Yes 1[drp] QD [address] (XALATAN) 6-16 nightly. [facility] - 0.005 % 16:08: Medical ophthalmic 11 Center solution prednisoLON 2017- Yes 1[drp] Q.25D [address] [facility] E acetate 6-16 (four) [facility] - (PRED 16:08: times Medical FORTE) 1 % 11 daily. Center ophthalmic suspension tiotropium 2017-0 Yes 18ug QD Inhale [address] (SPIRIVA) 6-16 mcg by [facility] - 18 mcg 16:08: mouth via Medica l inhalation 11 inhaler Center capsule daily. traMADol 2017- Yes 50mg Take [address] (ULTRAM) 50 6-16 by mouth [facility] - mg tablet 16:08: every 6 Medic al 11 (six) Page hours as needed for Pain. amoxicillin Yes 1{tbl} Q.5D Take [address] -clavulanat 6-16 tablet by [place] es - e 16:08: mouth 2 Medical (AUGMENTIN) (two) Page 875-125 mg times per tablet daily. fluticasone Yes 1{spray Q.5D [address] [facility] (FLONASE) 6-16 } Nasal [facility] - 50 16:08: route 2 Medical mcg/actuati 11 (two) Center on nasal times spray daily. montelukast Yes 10mg QD Take [address] (SINGULAIR) 6-16 by mouth [facility] - 10 mg 16:08: nightly. Medical tablet 11 Page pantoprazol Yes 40mg QD Take [address] [facility] e 6-16 by mouth [facility] - (PROTONIX) 16:08: daily. Medic al [address] [place] [address] tablet predniSONE Yes 5mg QD Take [address] (DELTASONE) 6-16 by mouth Luke [facility] - 5 MG tablet 16:08: daily. Medi iron [address] [place] [address] insulin Yes 20U QD Inject 20 [facility] t detemir 6-15 Units [facility] - (LEVEMIR) 00:00: subcutaneo Me dical 100 unit/mL 00 usly Center injection daily. Procedures This patient has no known procedures. Results Test Description Test Time Test Comments Results Result Comments Source POCT-GLUCOSE METER 2017-02-01 11:26:00 Test Item Value Reference Range Interpretation Comme nts POC-GLUCOSE METER ([facility]) (test 268 mg/dL 70-110 H TESTED AT [facility] [address] [facility] code = 1538) [facility] [address] POCT-GLUCOSE [id number] 07:49:00 Test Item Value Reference Range Interpretation Comments POC-GLUCOSE METER 219 mg/dL 70-110 H TESTED AT [facility] 6720 ([facility]) (test code = BERTNE R [facility] 1538) [address] BASIC METABOLIC [id number] 07:26:00 Test Item Value Reference Range Interpretation Comments SODIUM ([facility]) 134 meq/L 136-145 L (test code = 381) POTASSIUM (BEAKER) 3.6 meq/L 3.5-5.1 (test code = 379) CHLORIDE (BEAKER) 103 meq/L 98-107 (test code = 382) CO2 (BEAKER) (test 23 meq/L 22-29 code = 355) BLOOD UREA NITROGEN 21 mg/dL 7-21 (BEAKER) (test code = 354) CREATININE (BEAKER) 1.23 mg/dL 0.57-1.25 (test code = 358) GLUCOSE RANDOM 212 mg/dL 70-105 H (BEAKER) (test code = 652) CALCIUM (BEAKER) 9.0 mg/dL 8.4-10.2 (test code = 697) EGFR (BEAKER) (test 60 mL/min/1.73 ESTIMA HANNY GFR IS code = 1092) sq m NOT ACCURATE CREATININE CLEARANCE IN PREDICTING GLOMERULAR FILTRATION RATE . ESTIMATED GFR I S NOT APPLICABLE FOR DIALYSIS PATIEN TS. CBC W/PLT COUNT & AUTO [id number] 06:02:00 Test Item Value Reference Range Interpretation Comments WHITE BLOOD CELL COUNT (BEAKER) 6.5 K/ L 4.0-10.0 (test code = 775) RED BLOOD CELL COUNT (BEAKER) 3.90 M/ L 4.20-5.80 L (test code = 761) HEMOGLOBIN (BEAKER) (test code = 12.0 GM/DL 13.0-16.8 L 410) HEMATOCRIT (BEAKER) (test code = 36.0 % 40.0-50.0 L 411) MEAN CORPUSCULAR VOLUME (BEAKER) 92.2 fL 82.0-98.0 (test code = 753) MEAN CORPUSCULAR HEMOGLOBIN 30.8 pg 27.0-33.0 (BEAKER) (test code = 751) MEAN CORPUSCULAR HEMOGLOBIN CONC 33.4 GM/DL 32.0-36.0 (BEAKER) (test code = 752) RED CELL DISTRIBUTION WIDTH 12.2 % 10.3-14.2 (BEAKER) (test code = 412) PLATELET COUNT (BEAKER) (test 187 K/CU MM 150-430 code = 756) MEAN PLATELET VOLUME (BEAKER) 8.0 fL 6.5-10.5 (test code = 754) NUCLEATED RED BLOOD CELLS 0 /100 WBC 0-0 (BEAKER) (test code = 413) NEUTROPHILS RELATIVE PERCENT 58 % (BEAKER) (test code = 429) LYMPHOCYTES RELATIVE PERCENT 23 % (BEAKER) (test code = 430) MONOCYTES RELATIVE PERCENT 11 % (BEAKER) (test code = 431) EOSINOPHILS RELATIVE PERCENT 7 % (BEAKER) (test code = 432) BASOPHILS RELATIVE PERCENT 1 % (BEAKER) (test code = 437) NEUTROPHILS ABSOLUTE COUNT 3.78 K/ L 1.80-8.00 (BEAKER) (test code = 670) LYMPHOCYTES ABSOLUTE COUNT 1.52 K/ L 1.48-4.50 (BEAKER) (test code = 414) MONOCYTES ABSOLUTE COUNT (BEAKER) 0.73 K/ L 0.00-1.30 (test code = 415) EOSINOPHILS ABSOLUTE COUNT 0.48 K/ L 0.00-0.50 (BEAKER) (test code = 416) BASOPHILS ABSOLUTE COUNT (BEAKER) 0.04 K/ L 0.00-0.20 (test code = 417) 0.00POCT-GLUCOSE [id number] 23:23:00 Test Item Value Reference Range Interpretation Comments POC-GLUCOSE METER 339 mg/dL 70-110 H TESTED AT [place] [address] ([facility]) (test code = [place] [address]) [id number] POCT-GLUCOSE [id number] 19:55:00 Test Item Value Reference Range Interpretation Comments POC-GLUCOSE METER 366 mg/dL 70-110 H Will Repea t Test/TESTED ([facility]) (test code = AT [place] [address] [address]) [facility] 7703 0 POCT-GLUCOSE [id number] 18:14:00 Test Item Value Reference Range Interpretation Comments POC-GLUCOSE METER 410 mg/dL 70-110 HH TESTED AT [place] [address] ([facility]) (test code = [place] [address]) [id number] POCT-GLUCOSE [id number] 16:43:00 Test Item Value Reference Range Interpretation Comments POC-GLUCOSE METER 403 mg/dL 70-110 HH Notified R Hernan FONSECA/TESTED ([facility]) (test code = AT [place] [address]) [facility] 7703 0 CBC W/PLT COUNT & AUTO [id number] 11:17:00 Test Item Value Reference Range Interpretation Comments WHITE BLOOD CELL COUNT (BEAKER) 8.5 K/ L 4.0-10.0 (test code = 775) RED BLOOD CELL COUNT (BEAKER) 4.34 M/ L 4.20-5.80 (test code = 761) HEMOGLOBIN (BEAKER) (test code = 13.1 GM/DL 13.0-16.8 410) HEMATOCRIT (BEAKER) (test code = 40.4 % 40.0-50.0 411) MEAN CORPUSCULAR VOLUME (BEAKER) 93.1 fL 82.0-98.0 (test code = 753) MEAN CORPUSCULAR HEMOGLOBIN 30.1 pg 27.0-33.0 (BEAKER) (test code = 751) MEAN CORPUSCULAR HEMOGLOBIN CONC 32.3 GM/DL 32.0-36.0 (BEAKER) (test code = 752) RED CELL DISTRIBUTION WIDTH 13.4 % 10.3-14.2 (BEAKER) (test code = 412) PLATELET COUNT (BEAKER) (test 190 K/CU MM 150-430 code = 756) MEAN PLATELET VOLUME (BEAKER) 8.3 fL 6.5-10.5 (test code = 754) NUCLEATED RED BLOOD CELLS 0 /100 WBC 0-0 (BEAKER) (test code = 413) NEUTROPHILS RELATIVE PERCENT 68 % (BEAKER) (test code = 429) LYMPHOCYTES RELATIVE PERCENT 18 % (BEAKER) (test code = 430) MONOCYTES RELATIVE PERCENT 7 % (BEAKER) (test code = 431) EOSINOPHILS RELATIVE PERCENT 5 % (BEAKER) (test code = 432) BASOPHILS RELATIVE PERCENT 1 % (BEAKER) (test code = 437) NEUTROPHILS ABSOLUTE COUNT 5.84 K/ L 1.80-8.00 (BEAKER) (test code = 670) LYMPHOCYTES ABSOLUTE COUNT 1.57 K/ L 1.48-4.50 (BEAKER) (test code = 414) MONOCYTES ABSOLUTE COUNT (BEAKER) 0.62 K/ L 0.00-1.30 (test code = 415) EOSINOPHILS ABSOLUTE COUNT 0.44 K/ L 0.00-0.50 (BEAKER) (test code = 416) BASOPHILS ABSOLUTE COUNT (BEAKER) 0.06 K/ L 0.00-0.20 (test code = 417) 0.00POCT-GLUCOSE [id number] 08:34:00 Test Item Value Reference Range Interpretation Comments POC-GLUCOSE METER 293 mg/dL 70-110 H TESTED AT [facility] 6720 (BEAKER) (test code = [place] 1538) [address] CBC W/PLT COUNT & AUTO [id number] 07:38:00 Test Item Value Reference Range Interpretation Comments WHITE BLOOD CELL COUNT K/ L 4.0-10.0 clotT his is a (BEAKER) (test code = [facility] result. 775) Previous result was 0.0 K/ L on 01/31/2017 at [facility] CDT RED BLOOD CELL COUNT M/ L 4.20-5.80 clotThi s is a (BEAKER) (test code = [facility] result. 761) Previous result was 2.30 M/ L on 01/31/2017 at [facility] CDT HEMOGLOBIN (BEAKER) GM/DL 13.0-16.8 clotThis is a (test code = 410) corrected result. Previous result was 9.8 GM/DL on 01/31/2017 at [facility] CDT HEMATOCRIT (BEAKER) % 40.0-50.0 clotThis is a (test code = 411) corrected result. Previous result was 21.4 % on 2016 at [facility] CDT MEAN CORPUSCULAR VOLUME fL 82.0-98.0 clot This is a (BEAKER) (test code = [facility] result. 753) Previous result was 92.8 fL on 01/31 at [facility] CDT MEAN CORPUSCULAR pg 27.0-33.0 clotThis is a HEMOGLOBIN (BEAKER) correcte d result. (test code = 751) Previous r esult was 42.5 pg on 01/31 at [facility] CDT MEAN CORPUSCULAR GM/DL 32.0-36.0 clotThis is a HEMOGLOBIN CONC (BEAKER) cor rected result. (test code = 752) Previous r esult was 45.8 GM/DL on 01/31/2017 at [facility] CDT RED CELL DISTRIBUTION % 10.3-14.2 clotTh is is a WIDTH (BEAKER) (test correct ed result. code = 412) Previous result was 12.1 % on 2016 at [facility] CDT PLATELET COUNT (BEAKER) K/CU MM 150-430 clot This is a (test code = 756) corrected result. Previous result was 168 K/CU MM on 01/31/2017 at 07 33 CDT MEAN PLATELET VOLUME fL 6.5-10.5 clotThi s is a (BEAKER) (test code = [facility] result. 754) Previous result was 8.1 fL on 2016 at 0733 CDT NUCLEATED RED BLOOD /100 WBC 0-0 This is a corrected CELLS (BEAKER) (test result. Previous code = 413) result was 0 /1 00 WBC on 7 at 0733 CDT [id number] METABOLIC [id number] 06:27:00 Test Item Value Reference Range Interpretation Comments SODIUM (BEAKER) 135 meq/L 136-145 L (test code = 381) POTASSIUM (BEAKER) 4.6 meq/L 3.5-5.1 Specimen slightly (test code = 379) hemolyzed CHLORIDE (BEAKER) 106 meq/L 98-107 (test code = 382) CO2 (BEAKER) (test 17 meq/L 22-29 L code = 355) BLOOD UREA NITROGEN 20 mg/dL 7-21 (BEAKER) (test code = 354) CREATININE (BEAKER) 0.94 mg/dL 0.57-1.25 Specimen slightly (test code = 358) hemolyzed GLUCOSE RANDOM 237 mg/dL 70-105 H (BEAKER) (test code = 652) CALCIUM (BEAKER) 9.1 mg/dL 8.4-10.2 (test code = 697) EGFR (BEAKER) (test 82 mL/min/1.73 ESTIMA HANNY GFR IS code = 1092) sq m NOT ACCURATE CREATININE CLEARANCE IN PREDICTING GLOMERULAR FILTRATION RATE . ESTIMATED GFR I S NOT APPLICABLE FOR DIALYSIS PATIEN TS. POCT-GLUCOSE [id number] 21:00:00 Test Item Value Reference Range Interpretation Comments POC-GLUCOSE METER 203 mg/dL 70-110 H TESTED AT [facility] 1533 (BEAKER) (test code = [place] 1538) [id number]
--- OUTSIDE RECORDS SUMMARY | 2020-07-20 21:37 | XMS REPORT | Clinical Summary ---
:1955 Author Organization [facility] Address [address] [place] [address] Care Team Providers Name Role Phone Sharpdhruv Primary Care Provider Allergies No Known Allergies [...] nightly. ticagrelor Take by mouth 2 0 Act berto (BRILINTA) 90 mg Tab (two) times daily. [...] times daily. latanoprost 1 drop nightly. 0 Ac tive (XALATAN) 0.005 % ophthalmic solution prednisoLONE acetate [...] tablet fluticasone 1 spray by Nasal 0 A ctive (FLONASE) 50 route 2 (two) times mcg/actuation [...] disease) 02/01/2017 COPD (chronic obstructive pulmonary disease) 7 DM (diabetes mellitus) 02/01/2017 Hypothyroidism 02/01/2017 History of below knee amputation, right: in 02/01 History of above knee amputation, left: in 2005 Dizziness 01/31/2017 TIA (transient ischemic attack) 01/30/2017 Family History Medical History Relation Name Comments Heart disease Father Relation Name Status Comments Father Mother Social History Tobacco Use Types Packs/Day Years Used Date Former Smoker 1 46 Quit: 09/01/19 12 Alcohol Use Drinks/Week oz/Week Comments No Sex Assigned at Date Recorded Not on file Last Filed Vital Signs Not on file Plan of Treatment Not on file Results Not on fileafter 07/20/2019 [phone] [address] (Home) [place], [place] [address] Advance Directives For more information, please contact: [phone] Code Status Date Activated Date Inactivated Comments Partial Code 01/30/2017 10:30 PM 02/01/2017 6:08 PM This code status was determined by: Patient Drug Protocol After Arrest Occurs? Yes Mechanical Ventilation with Intubation? No Bag/Mask? No Internal/External Pacemaker? No Transfer to Critical Care? No Chest Compressions? No Defibrillation/Cardioversion? No
[2020-07-20] MEDS ORDERED: NA CHLORIDE 0.9% 1,000 ML ONE ×2 (22:18→23:30)
[2020-07-20 22:36] LABS: Protime INR 0.91
[2020-07-20 22:37] LABS: Absolute Lymphocytes (CBC) 0.9 K/uL (0.7-4.9); Basophils % 0.5 % (0-1.3); Hematocrit 42.5 % (39.6-49.0); Lymphocytes % 8.2 % (15.3-44.8); MPV 10.2 fL (7.6-11.3); RBC Red Blood Cell Count 4.37 M/uL (4.33-5.43)
[2020-07-20 22:51] LABS: Arterial Blood Carboxyhemoglob 1.3 % (0-1.5); Blood Gas Oxyhemoglobin 71.6 % (94-97); Blood O2 Saturation 73.5 % (92-98.5)
[2020-07-20 23:01] LABS: ALT/SGPT 27 U/L (12-78); Albumin 2.8 g/dL (3.4-5.0); Alkaline Phosphatase 131 U/L (45-117); BUN Blood Urea Nitrogen 85 mg/dL (7-18); Bilirubin Direct 0.2 mg/dL (0-0.2); Bilirubin Total 0.7 mg/dL (0.2-1.0); NT PRO-BNP 27532 pg/mL (<125); Protein, Total 7.6 g/dL (6.4-8.2); Sodium Level 131 mmol/L (136-145)
[2020-07-20 23:02] LABS: Magnesium 3.1 mg/dL (1.8-2.4); Potassium 5.6 mmol/L (3.5-5.1)
[2020-07-20 23:03] LABS: AST/SGOT 64 U/L (15-37); Bicarbonate 5 mmol/L (21-32); Glucose Level 655 mg/dL (74-106)
[2020-07-20] MEDS ORDERED: INSULIN -REGULAR HUMAN 50 UNIT/0.5 ML ML ONE (23:29)
[2020-07-20] MEDS ORDERED: NA CHLORIDE 0.9% 100 ML ONE (23:30)
[2020-07-20] MEDS ORDERED: SODIUM BICARB 50 MEQ/50ML VIAL ONE (23:47)
[2020-07-21] MEDS ORDERED: DOPAMINE/D5W 400 MG/250 ML BAG IV ONE (00:12)
[2020-07-21] MEDS ORDERED: HEPARIN 5000 UNIT/ML 1 ML VIAL ONE (00:47)
[2020-07-21] MEDS ORDERED: HEPARIN/D5W 25,000 UNIT/500 ML BAG IV ONE (00:47)
--- NOTE | 2020-07-21 01:08 | ER ---
Nurse's Notes [facility] Name: Edson Spence Age: 65 yrs Sex: Male : 1955 Arrival Date: 07/20/2020 Time: 21:36 Bed 3 Private MD: Diagnosis: Diabetic Ketoacidosis;Non ST Elevation [place];Acute Kidney Injury Presentation: 07/20 21:36 Chief complaint: EMS states: PATIENT IS DIABETIC AND HAS NOT BEEN TAKING INSULIN FOR rv TWO DAYS, NOVOLOG AND LANTUS. BGL READS HIGH. Coronavirus screen: Client denies travel out of the [place] in the last 14 days. Ebola Screen: No symptoms or risks identified at this time. Initial Sepsis Screen: Does the patient meet any 2 criteria? No. Patient's initial sepsis screen is negative. Does the patient have a suspected source of infection? No. Patient's initial sepsis screen is negative. Risk Assessment: Do you want to hurt yourself or someone else? Patient reports no desire to harm self or others. Onset of symptoms is unknown. 21:36 Method Of Arrival: EMS: [facility] rv 21:36 Acuity: CHRISTOPHER 2 rv Triage Assessment: 21:41 General: Appears ill, Behavior is drowsy. Pain: Denies pain. EENT: No signs and/or rv symptoms were reported regarding the EENT system. Neuro: Level of Consciousness is awake, alert, obeys commands, Oriented to person, place, time, situation. Cardiovascular: Rhythm is sinus rhythm. Respiratory: Airway is patent Respiratory effort is labored, Respiratory pattern is tachypnea. Derm: Skin is intact. Historical: - Allergies: 21:40 NKA; rv - PMHx: 21:40 COPD; Diabetes - IDDM; High Cholesterol; Hypertension; Hypothyroidism; Myocardial rv infarction; - PSHx: 21:40 Unable to obtain; rv - Immunization history:: Adult Immunizations unknown. - Social history:: Smoking status: unknown. Screenin:42 Abuse screen: Denies threats or abuse. Denies injuries from another. Nutritional rv screening: No deficits noted. Tuberculosis screening: No symptoms or risk factors identified. Fall Risk None identified. Assessment: 22:00 Respiratory: Respiratory pattern is Kussmaul Breath sounds are clear bilaterally. rv 07/21 01:26 Reassessment: patient is alert and oriented, hypotensive at 70 systolic, referred to Dr hay Polanco. Central inserted with Florinda OMER at bedside, Dopamine started at 5mcg/kg/min. blood pressure is still hypotensive after NS bolus and increased Dopamine dose, Levophed started at 5mcg/hr. blood pressure increased to 100/83, cardiac rhythm changed to sinus tachycardia, Dopamine drip decreased to 5mcg/kg/min. Angus Hugger placed on the patient to maintain normal temperature. 02:32 Reassessment: [facility] Pt alert, oriented to ea self. Pt respirations rate is tachypneic and remain in Kussmaul Breathing. IV lines in place patent with medications running. Pt left ED via stretcher per life flight. Pt tolerating well. Vital Signs: 07/20 21:36 BP 114 / 45; Pulse 84; Resp 24; Temp 98; Weight 72.57 kg; rv 22:43 BP 117 / 95; Pulse 79; Resp 23; Pulse Ox 100% on 2 lpm NC; rv 23:00 BP 115 / 61; Pulse 77; Resp 25; Pulse Ox 100% 2 lpm ; rv 23:17 BP 69 / 32; Pulse 78; Resp 26; Pulse Ox 100% on 2 lpm NC; rv 23:30 BP 70 / 35; Pulse 77; Resp 24; Pulse Ox 100% on 2 lpm NC; rv 23:45 BP 70 / 35; Pulse 86; Resp 23; Pulse Ox 100% on 2 lpm NC; rv 07/21 00:15 BP 74 / 33; Pulse 79; Resp 23; Pulse Ox 100% on 2 lpm NC; rv 00:30 BP 75 / 44; Pulse 82; Resp 19; Pulse Ox 100% on 2 lpm NC; rv 01:00 BP 80 / 35; Pulse 119; Resp 23; Temp 89.4(C); Pulse Ox 100% ; rv 01:25 BP 100 / 83; Pulse 125; Resp 18; Temp 89.9; Pulse Ox 100% on 2 lpm NC; rv 02:20 BP 99 / 80; Pulse 106; Resp 23; Temp 91; Pulse Ox 100% ; ea ED Course: 07/20 21:36 Patient arrived in ED. rv 21:40 Triage completed. rv 21:41 Arm band placed on right wrist. Patient placed in the treatment room, on a stretcher, rv Patient notified of wait time. 21:41 Maintain EMS IV. Dressing intact. Good blood return noted. Site clean \T\ dry. Gauge \T\ rv site: G22 RIGHT HAND. 21:42 Patient has correct armband on for positive identification. ekg monitor on. Pulse rv ox on. NIBP on. 21:43 Mauro Polanco MD is Attending Physician. mh7 22:00 Inserted MIDLINE [id number], MONTSE. rv 22:17 Albert James, NEGRA is Primary Nurse. rv 23:01 XRAY Chest (1 view) In Process Unspecified. EDMS 23:42 Tried to initiate transfer at [facility] with Janett. She stated she would have to call tt3 me back. 23:47 Janett returned the call to finish initiating. tt3 12 00:03 Janett called back to verify that the pt was not covid swabbed. tt3 00:11 Janett called back to decline due to capacity. tt3 00:15 Inserted saline lock: 18 gauge in left forearm, using aseptic technique. rv 00:23 Initiated transfer at [facility] with Janett. Stated she would check for beds and tt3 call back. 00:25 Assisted provider with central line placement. Set up central line tray. Triple lumen rv line placed in right femoral. Line placed by Mauro Polanco MD Placement verified by blood return, Dressed with Tegaderm, Patient tolerated well. 00:45 Henderson cath inserted, using sterile technique, 18 Fr., by me, balloon inflated, to rv gravity drainage, urine specimen collected. 02:36 IV is patent, with fluids infusing freely, Patient transferred, IV remains in place. rv Administered Medications: 07/20 03:40 Drug: Sodium Bicarbonate 100 mEq Route: IVP; Site: right hand; rv 07/21 02:37 Follow up: Response: No adverse reaction rv 07/20 22:11 Drug: NS 0.9% 1000 ml Route: IV; Rate: 1 bolus; Site: right antecubital; rv 07/21 01:24 Follow up: IV Status: Completed infusion; IV Intake: 1000ml rv 07/20 22:56 Drug: NS 0.9% 1000 ml Route: IV; Rate: 1000 ml; Site: right upper arm; rv 07/21 01:24 Follow up: IV Status: Completed infusion; IV Intake: 1000ml rv 07/20 23:25 Drug: Insulin Regular Human 10 units {Co-Signature: griselda (Florinda Ybarra RN).} Route: IVP; rv Site: right hand; 07/21 02:37 Follow up: Response: Medication administered at discharge. rv 07/20 23:50 Drug: Insulin Drip - (Insulin Regular Human 100 units, NS 0.9% 100 ml) {Co-Signature: hay villalobos (Florinda Ybarra RN).} Route: IV; Rate: calculated rate; Site: right antecubital; 07/21 02:38 Follow up: IV Status: Infusion continued upon transfer rv 00:43 Drug: Heparin ([place] Drip) 12 units/kg/hr - (HEParin 43184 units, D5W 500 ml) rv {Co-Signature: griselda (Florinda Ybarra RN).} Route: IV; Rate: calculated rate; Site: right femoral; 02:36 Follow up: IV Status: Infusion continued upon transfer rv 00:44 Drug: Heparin ([place]-Bolus with thrombolytic) - HEParin 60 units/kg {Co-Signature: griselda guido (Florinda Ybarra RN).} Route: IVP; Site: right femoral; 02:37 Follow up: Response: No adverse reaction rv 01:09 Drug: Aspirin Chewable Tablet 324 mg Route: PO; ea 02:36 Follow up: Response: No adverse reaction rv Intake: 01:24 IV: 1000ml; Total: 1000ml. rv 01:24 IV: 1000ml; Total: 2000ml. rv Outcome: 01:07 ER care complete, transfer ordered by MD. mckinney 02:35 Transferred by helicopter to [facility], Transfer form completed. X-rays sent rv w/ patient. 02:35 Condition: stable 02:35 Discharge instructions given to son updated regarding transfer. Instructed on the need for transfer. 02:38 Patient left the ED. griselda Signatures: Dispatcher [employer] Florinda Leon RN Albert Hancock ea, RN RN rv Holmes, Maurice, MD MD mh7 Trim, Tyler tt3 Florinda Ybarra RN, ea
--- NOTE | 2020-07-21 01:08 | EDPHYS ---
Physician Documentation [facility] Name: Edson Spence Age: 65 yrs Sex: Male : 1955 Arrival Date: 07/20/2020 Time: 21:36 Bed 3 Private MD: ED Physician Mauro Polanco HPI: 07/20 22:30 This 65 yrs old Male presents to ER via EMS with complaints of High Blood mh7 Sugar. 22:30 The patient or guardian reports hyperglycemia, that was potentially precipitated by mh7 forgetting medications, with the patient's symptoms witnessed by family. 22:31 Onset: The symptoms/episode began/occurred 2 day(s) ago. mh7 22:31 Associated signs and symptoms:. mh7 07/21 00:40 Associated signs and symptoms: Pertinent negatives: constipation, decreased urine mh7 output, diaphoresis, diarrhea, dry skin, hair loss, ketones in urine, nausea, polydipsia, polyphagia, polyuria, seizure activity, skin flushing, urinary incontinence, vomiting. Current symptoms: In the emergency department the patient's symptoms are unchanged from the initial presentation. The patient has experienced similar episodes in the past, multiple times. Historical: - Allergies: 07/20 21:40 NKA; rv - PMHx: 21:40 COPD; Diabetes - IDDM; High Cholesterol; Hypertension; Hypothyroidism; Myocardial rv infarction; - PSHx: 21:40 Unable to obtain; rv - Immunization history:: Adult Immunizations unknown. - Social history:: Smoking status: unknown. ROS: 07/21 00:40 Constitutional: Negative for fever, chills, and weight loss, Eyes: Negative for injury, mh7 pain, redness, and discharge, ENT: Negative for injury, pain, and discharge, Neck: Negative for injury, pain, and swelling, Cardiovascular: Negative for chest pain, palpitations, and edema, Respiratory: Negative for shortness of breath, cough, wheezing, and pleuritic chest pain, Abdomen/GI: Negative for abdominal pain, nausea, vomiting, diarrhea, and constipation, Back: Negative for injury and pain, : Negative for injury, bleeding, discharge, and swelling, MS/Extremity: Negative for injury and deformity, Skin: Negative for injury, rash, and discoloration, Neuro: Negative for headache, weakness, numbness, tingling, and seizure, Psych: Negative for depression, anxiety, suicide ideation, homicidal ideation, and hallucinations, Allergy/Immunology: Negative for hives, rash, and allergies, Endocrine: Negative for neck swelling, polydipsia, polyuria, polyphagia, and marked weight changes. Exam: 00:40 Head/Face: Normocephalic, atraumatic. Eyes: Pupils equal round and reactive to light, mh7 extra-ocular motions intact. Lids and lashes normal. Conjunctiva and sclera are non-icteric and not injected. Cornea within normal limits. Periorbital areas with no swelling, redness, or edema. 00:40 Neck: Trachea midline, no thyromegaly or masses palpated, and no cervical lymphadenopathy. Supple, full range of motion without nuchal rigidity, or vertebral point tenderness. No Meningismus. Chest/axilla: Normal chest wall appearance and motion. Nontender with no deformity. No lesions are appreciated. Cardiovascular: Regular rate and rhythm with a normal S1 and S2. No gallops, murmurs, or rubs. Normal PMI, no JVD. No pulse deficits. 00:40 Abdomen/GI: Soft, non-tender, with normal bowel sounds. No distension or tympany. No guarding or rebound. No evidence of tenderness throughout. Back: No spinal tenderness. No costovertebral tenderness. Full range of motion. Skin: Warm, dry with normal turgor. Normal color with no rashes, no lesions, and no evidence of cellulitis. 00:40 Neuro: Awake and alert, GCS 15, oriented to person, place, time, and situation. Cranial nerves II-XII grossly intact. Motor strength 5/5 in all extremities. Sensory grossly intact. Cerebellar exam normal. Normal gait. Psych: Awake, alert, with orientation to person, place and time. Behavior, mood, and affect are within normal limits. 00:40 Constitutional: The patient appears alert, awake, obviously ill. 00:40 ENT: Mouth: Lips: normal, Oral mucosa: dry, Gums: normal with healthy appearance, Posterior pharynx: is normal, airway is patent. 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 Pulses: are normal with no appreciated deficits, Perfusion: the patient is normally perfused throughout, Perfusion: the extremity is normally perfused throughout, Sensation intact. Vital Signs: 07/20 21:36 BP 114 / 45; Pulse 84; Resp 24; Temp 98; Weight 72.57 kg; rv 22:43 BP 117 / 95; Pulse 79; Resp 23; Pulse Ox 100% on 2 lpm NC; rv 23:00 BP 115 / 61; Pulse 77; Resp 25; Pulse Ox 100% 2 lpm ; rv 23:17 BP 69 / 32; Pulse 78; Resp 26; Pulse Ox 100% on 2 lpm NC; rv 23:30 BP 70 / 35; Pulse 77; Resp 24; Pulse Ox 100% on 2 lpm NC; rv 23:45 BP 70 / 35; Pulse 86; Resp 23; Pulse Ox 100% on 2 lpm NC; rv 07/21 00:15 BP 74 / 33; Pulse 79; Resp 23; Pulse Ox 100% on 2 lpm NC; rv 00:30 BP 75 / 44; Pulse 82; Resp 19; Pulse Ox 100% on 2 lpm NC; rv 01:00 BP 80 / 35; Pulse 119; Resp 23; Temp 89.4(C); Pulse Ox 100% ; rv 01:25 BP 100 / 83; Pulse 125; Resp 18; Temp 89.9; Pulse Ox 100% on 2 lpm NC; rv 02:20 BP 99 / 80; Pulse 106; Resp 23; Temp 91; Pulse Ox 100% ; ea Procedures: 01:08 Central Line: the site was prepped with Betadine, in sterile fashion, a triple lumen mh7 catheter was inserted, in the right femoral vein, in 1 attempts. placement was verified, by blood return, the site was dressed with Tegaderm, using sterile technique, the patient tolerated the procedure, well. MDM: 01:04 Differential diagnosis: DKA, hyperglycemia, Acute [place], Infectious process. Data [facility] reviewed: vital signs, nurses notes, EMS record, old medical records, lab test result(s), cardiac enzymes, CBC, electrolytes, urinalysis, EKG, radiologic studies, plain films. Data interpreted: Pulse oximetry: on room air is 100 %. Interpretation: normal. Counseling: I had a detailed discussion with the patient and/or guardian regarding: the historical points, exam findings, and any diagnostic results supporting the discharge/admit diagnosis, lab results, radiology results, the need to transfer to another facility, No ICU bed available. Response to treatment: the patient's symptoms have mildly improved after treatment. 01:07 Patient medically screened. mh7 07/20 21:56 Order name: Glucose, Ancillary Testing; Complete Time: 22:30 EDWA 07/20 22:18 Order name: Basic Metabolic Panel 07/20 22:18 Order name: CBC with Diff; Complete Time: 22:46 rv 07/20 22:18 Order name: LFT's rv 07/20 22:18 Order name: Magnesium rv 07/20 22:18 Order name: NT PRO-BNP; Complete Time: 23:17 rv 07/20 22:18 Order name: PT-INR; Complete Time: 22:46 07/20 22:18 Order name: Troponin (emerg Dept Use Only); Complete Time: 23:17 07/20 22:18 Order name: Ketone, Serum; Complete Time: 23:17 07/20 22:18 Order name: ABG; Complete Time: 23:14 07/20 22:19 Order name: Basic Metabolic Panel; Complete Time: 23:17 EDMS 07/20 22:19 Order name: Liver (Hepatic) Function; Complete Time: 23:17 EDMS 07/20 22:19 Order name: Magnesium; Complete Time: 23:17 EDMS 07/21 00:16 Order name: Glucose, Ancillary Testing; Complete Time: 00:20 EDWA 07/20 22:18 Order name: XRAY Chest (1 view) 07/20 22:18 Order name: EKG; Complete Time: 22:19 07/20 22:18 Order name: Cardiac monitoring; Complete Time: 22:19 07/21 00:34 Order name: Glucose dm5 07/21 01:14 Order name: Glucose, Ancillary Testing EDWA 07/21 01:56 Order name: SARS-COV-2 RT PCR EDWA 07/21 02:01 Order name: Urine Dipstick--Ancillary (enter results) tt3 07/20 22:18 Order name: EKG - Nurse/Tech; Complete Time: 22:19 07/20 22:18 Order name: IV Saline Lock; Complete Time: 22:19 rv 07/20 22:18 Order name: Labs collected and sent; Complete Time: 22:20 rv 07/20 22:18 Order name: O2 Per Protocol; Complete Time: 22:20 rv 07/20 22:18 Order name: O2 Sat Monitoring; Complete Time: 22:20 rv 07/20 23:04 Order name: Urine Dipstick-Ancillary (obtain specimen); Complete Time: 01:24 mh7 Administered Medications: 07/20 03:40 Drug: Sodium Bicarbonate 100 mEq Route: IVP; Site: right hand; rv 07/21 02:37 Follow up: Response: No adverse reaction rv 07/20 22:11 Drug: NS 0.9% 1000 ml Route: IV; Rate: 1 bolus; Site: right antecubital; 07/21 01:24 Follow up: IV Status: Completed infusion; IV Intake: 1000ml rv 07/20 22:56 Drug: NS 0.9% 1000 ml Route: IV; Rate: 1000 ml; Site: right upper arm; rv 07/21 01:24 Follow up: IV Status: Completed infusion; IV Intake: 1000ml rv 07/20 23:25 Drug: Insulin Regular Human 10 units {Co-Signature: griselda (Florinda Ybarra RN).} Route: IVP; rv Site: right hand; 07/21 02:37 Follow up: Response: Medication administered at discharge. 07/20 23:50 Drug: Insulin Drip - (Insulin Regular Human 100 units, NS 0.9% 100 ml) {Co-Signature: rv griselda (Florinda Ybarra RN).} Route: IV; Rate: calculated rate; Site: right antecubital; 07/21 02:38 Follow up: IV Status: Infusion continued upon transfer rv 00:43 Drug: Heparin ([place] Drip) 12 units/kg/hr - (HEParin 86525 units, D5W 500 ml) rv {Co-Signature: griselda (Florinda Ybarra RN).} Route: IV; Rate: calculated rate; Site: right femoral; 02:36 Follow up: IV Status: Infusion continued upon transfer rv 00:44 Drug: Heparin ([place]-Bolus with thrombolytic) - HEParin 60 units/kg {Co-Signature: griselda rv (Florinda Ybarra RN).} Route: IVP; Site: right femoral; 02:37 Follow up: Response: No adverse reaction rv 01:09 Drug: Aspirin Chewable Tablet 324 mg Route: PO; ea 02:36 Follow up: Response: No adverse reaction rv Disposition: 07/21/20 01:07 Transfer ordered to [facility] Diagnosis are Diabetic Ketoacidosis, Non ST Elevation [place], Acute Kidney Injury. - Reason for transfer: Higher level of care. - Accepting physician is Dr. Le. - Condition is Critical. - Problem is an acute exacerbation. - Symptoms have improved. Signatures: Dispatcher [employer] EDWA Florinda Ybarra, NEGRA RN Albert Seay RN Mauro Pace MD MD 7 Florinda Ybarra RN, ea Corrections: (The following items were deleted from the chart) 00:51 00:25 CORONAVIRUS+Z ordered. [facility] 02:38 01:07 07/21/2020 01:07 Transfer ordered to [facility] Diagnosis is ea Diabetic Ketoacidosis; Non ST Elevation [place]; Acute Kidney Injury. Reason for transfer: Higher level of care. Accepting physician is Dr. Le. Condition is Critical. Problem is an acute exacerbation. Symptoms have improved. mh7
[2020-07-21] MEDS ORDERED: ASPIRIN 81 MG CHEWABLE TABLET ONE (01:19)
[2020-07-21] MEDS ORDERED: NOREPINEPHRINE 4mg/D5W 250mL 4 MG/250 ML BAG IV ONE (01:24)
[2020-07-21 03:39] LABS: Urine Blood NEGATIVE (NEG); Urine Glucose 2+ (NEG); Urine Protein NEGATIVE (NEG)
--- NOTE | 2020-07-21 06:07 | EKG ---
Test Date: 2020-07-20 Test Time: 21:48:58 Director Of Mechanical Engineering: JUD MEASUREMENT RESULTS: Intervals: Rate: 83 MA: 148 QRSD: 116 QT: 456 QTc: 535 [place]: P: 79 MA: 148 QRS: 84 T: -69 INTERPRETIVE STATEMENTS: Normal sinus rhythm Inferior infarct, age undetermined Prolonged QT Abnormal ECG Compared to ECG 09/29/2019 13:13:51 Myocardial infarct finding now present Prolonged QT interval now present Sinus tachycardia no longer present Atrial abnormality no longer present Right-axis deviation no longer present Incomplete right bundle-branch block no longer present ST (T wave) deviation no longer present Electronically Signed On 07-21-20 06:07:13 PAIN MANAGEMENT PHYSICIAN by Kleber Mitchell
--- NOTE | 2020-07-21 07:24 | RAD REPORT ---
EXAM DESCRIPTION: RAD - Chest Single View - 07/20/2020 11:01 pm CLINICAL HISTORY: COUGH, hypertension, history of [place] COMPARISON: September 2019 TECHNIQUE: AP portable chest image was obtained 07/20/2020 11:01 pm . FINDINGS: No focal mass or consolidation. Interstitial pattern is minimally prominent but not substa ntially different when adjusting for the lower lung volumes. No focal infiltrative process confirmed. Failure and volume overload are not suspected. Heart and vasculature are normal. No measurable pleural effusion and no pneumothorax. No acute bony abnormality seen. No acute aortic findings suspected. IMPRESSION: No acute cardiopulmonary process. Interstitial pattern is not clearly different from comparison.
== END 2020-07-21 02:38 | disposition short-term general hospital (02) ==
LOC: ER 21:35
PROC: 06HM33Z Insertion of Infusion Device into Right Femoral Vein, Percutaneous Approach (ICD-10-PCS; principal; 2020-07-21)
DX: E11.10 Type 2 diabetes mellitus with ketoacidosis without coma (principal); I21.4 Non-ST elevation (NSTEMI) myocardial infarction; N17.9 Acute kidney failure, unspecified; Z79.4 Long term (current) use of insulin; Z20.828 Contact with and (suspected) exposure to other viral communicable diseases; I10 Essential (primary) hypertension
CPT/HCPCS: 93005 ×2; 85025; 80048; 36415 ×2; 82010; 83735; 82947 ×4; 85610; 80076; 81003; 84484; 83880; 71045; 82805; 51702; 99285; 36556; U0003; J1644 ×2; J7030 ×2